=== PATIENT | male | born 1975 | race Caucasian/White ===

== ENCOUNTER → 2023-02-02 | Outpatient (CLI) | payer OTHER, SELFPAY ==
--- NOTE | 2023-02-02 13:52 | CT_ITS ---
INDICATION: CONTACT W HAZARDOUS SUBSTANCES EXAMINATION: CT CHEST WITHOUT CONTRAST - CT Chest W/O Contrast Injection TECHNIQUE: Helically acquired images were obtained of the chest. A radiation dose optimization technique was used for this scan. IV Contrast dosage and agent: None. COMPARISON: None. FINDINGS: LUNGS, PLEURA AND LARGE AIRWAYS: No masses, consolidation, or edema. No pleural effusion or thickening. No pneumothorax. THYROID: No thyroid lesions. HEART AND PERICARDIUM: Heart size is normal. No pericardial effusion. CORONARY ARTERIES: Multifocal artery calcification including the left main coronary artery VESSELS: Thoracic aorta is not dilated. MEDIASTINUM AND TAYO: No mediastinal or hilar adenopathy. Esophagus is unremarkable. No hiatal hernia. UPPER ABDOMEN: Small hiatal hernia noted. BONES: Dorsal spine demonstrates degenerative changes No suspicious lytic or blastic abnormality. CT/Chest without Contrast IMPRESSION: Findings consistent with coronary artery disease. Otherwise no significant cardiopulmonary pathology Electronically Signed: Mike Triplett MD at 21:35 EDT ,
== END | disposition home or self-care (01) ==
LOC: CT 13:50
DX: Z77.29 Contact with and (suspected) exposure to other hazardous substances (principal)
CPT/HCPCS: 71250

== ENCOUNTER → 2024-09-01 | Outpatient (CLI) | payer OTHER, SELFPAY ==
--- NOTE | 2024-09-01 10:38 | US_ITS ---
HISTORY: RUQ PAIN. TECHNIQUE: Cervantes scale and color doppler imaging was performed of the right upper quadrant. 86 images. COMPARISON: None. FINDINGS: LIVER: 17.4 cm in length. Increased echogenicity without focal lesion demonstrated. No intrahepatic ductal dilatation. MAIN PORTAL VEIN: Patent with flow in the appropriate direction. COMMON BILE DUCT: 4 mm in diameter. GALLBLADDER: No gallstones. 2 mm wall thickness. No pericholecystic fluid. Sonographic Zheng sign negative. PANCREAS: Not well visualized due to overlying bowel gas. RIGHT KIDNEY: 12 cm in length with a cortical thickness of 1.3 cm. No hydronephrosis or gross renal mass demonstrated. US/Abdomen Limited IMPRESSION: No sonographic evidence of cholelithiasis. Hepatic steatosis with mild hepatomegaly. Electronically Signed: Jordyn Dunne MD at 15:43 EST ,
== END | disposition home or self-care (01) ==
PROVIDERS: Referring Provider Nurse Practitioner Gerontology; Visit Provider Nurse Practitioner Gerontology
DX: R10.811 Right upper quadrant abdominal tenderness (principal)
CPT/HCPCS: 76705

== ENCOUNTER 2025-09-16 10:43 | Emergency (ER) | payer OTHER, SELFPAY ==
[2025-09-16 10:44] VITALS: BP 120/85; PULSE 75; RESP 18; TEMP 36.8; O2SAT 100; BMI 35.1
--- NOTE | 2025-09-16 11:00 | CT_ITS ---
PROCEDURE: ABDOMEN/PELVIS WITHOUT CONT 09/16/2025 REASON FOR EXAM: KIDNEY STONE TECHNIQUE: Procedure Code: CTABDPEL Modality: CT Procedure: ABDOMEN/PELVIS WITHOUT CONT Noncontrast technique limits evaluation of the abdominal and pelvic viscera. Coronal and Sagittal reconstruction series were provided. One or more dose reduction techniques were used (e.g., Automated exposure control, adjustment of the mA and/or kV according to patient size, use of iterative reconstruction technique). RADIATION DOSE SUMMARY: CTDlvol: 15.4 mGy DLP: 1015.7 mGycm COMPARISON: None FINDINGS: Lung bases: Clear Liver: Normal size. No obvious mass. Gallbladder: Normal Spleen: Normal size. Pancreas: Normal size. No surrounding inflammation. Adrenals: Normal. Kidneys: No urolithiasis. No hydronephrosis. There is fat stranding noted along the right ureter and right kidney pelvis. Bladder: Unremarkable. Reproductive Organs: Unremarkable. Bowel: No bowel obstruction. Appendix: The appendix is not identified. There is no inflammatory process identified in the right lower quadrant to suggest appendicitis. Lymph nodes: Unremarkable. Vasculature: The abdominal aorta and IVC contours are normal. Noncontrast technique limits evaluation. Peritoneum / Retroperitoneum: No free air or free fluid. Bones: Degenerative changes of the spine. Abdominal wall: Herniated small bowel loops through an umbilical hernia without evidence of strangulation or obstruction. CT/Abdomen/Pelvis without Cont IMPRESSION: There is fat stranding noted along the right ureter and right kidney pelvis. R ecommend correlation with right pyelitis and pyelonephritis. No obstructive nephroliths. Herniated small bowel loops through an umbilical hernia without evidence of str angulation or obstruction. Reading Location: [facility]
--- NOTE | 2025-09-16 11:00 | EX.ED.DYSGE1 ---
HPI History of Present Illness Chief Complaint: Flank Pain Informant: patient and spouse/S.O. Narrative Narrative: 49-year-old male presenting to the emergency room with sudden onset of right flank pain.. States about 30 minutes ago was driving to town and began to have some pain in his right flank intensified and radiated towards the right groin. He noted he had some slight burning with urination this morning but did not have urinated here in the department. He denies any vomiting or diarrhea. Normal bowel movement this morning no fevers. No history of ureterolithiasis or kidney issues. He said prior appendectomy. He denies any rashes. [facility] Medical History (Updated 09/16/25 @ 13:[address] Peyman Chambers DO) GERD (gastroesophageal reflux disease) Hypercholesterolemia Hypertension Home Medications ?Medication ?Instructions ?Recorded ?Last Taken ?Type amlodipine 5 mg tablet 5 mg PO QDAY 12/25/24 Unknown History benazepril 10 mg tablet 10 mg PO QDAY 12/25/24 Unknown History celecoxib 100 mg capsule 100 mg PO BID 12/25/24 Unknown History citalopram 30 mg capsule 30 mg PO QDAY 12/25/24 Unknown History ezetimibe 10 mg tablet 10 mg PO QDAY 12/25/24 Unknown History omeprazole 40 mg capsule,delayed 40 mg PO QDAY 12/25/24 Unknown History release prazosin 2 mg capsule 2 mg PO QHS 12/25/24 Unknown History rosuvastatin 20 mg tablet 20 mg PO QDAY 12/25/24 Unknown History tamsulosin 0.4 mg capsule 0.4 mg PO QDAY 12/25/24 Unknown History ondansetron 4 mg disintegrating 4 mg PO Q6H PRN PRN Nausea #15 tabs 09/16/25 Unknown Rx tablet oxycodone-acetaminophen 5 mg-325 1 tab PO Q6H PRN PRN Pain 3 days 09/16/25 Unknown Rx mg tablet #12 TABLETS Allergy/AdvReac Type Severity Reaction Status Date / Time Seasonal Allergies: Uncoded Allergy Other Verified 09/16/25 10:45 Surgical History (Updated 09/16/25 @ 11:[address] Peyman Chambers DO) History of lumbar surgery S/P tonsillectomy S/P appendectomy Social History Smoking Status: Never smoker alcohol intake: current alcohol intake frequency: a few times a week Alcohol type: beer ROS ROS ED Constitutional Constitutional ED: Denies chills, fever(s) or weight loss Eyes Eyes: Denies change in vision or diplopia ENT ENT ED: Denies ear pain, rhinorrhea or sore throat Cardiovascular Cardiovascular: Denies chest pain, orthopnea, palpitations or racing heartbeat Respiratory/Chest Respiratory/Chest: Denies cough, dyspnea or orthopnea Gastrointestinal Gastrointestinal: Reports abdominal pain; Denies diarrhea, nausea or vomiting Genitourinary Genitourinary ED: Reports dysuria; Denies hematuria or urinary frequency Musculoskeletal Musculoskeletal: Reports back pain; Denies arthralgias or myalgias Integumentary Denies abscess or rash Neurologic Neurologic: Denies headache(s) or weakness Psychiatric Psychiatric: Denies anxiety, depression, suicidal ideation or suicidal thoughts Endocrine Endocrinology: Denies polydipsia, polyphagia or polyuria Allergic/Immunologic Allergic/Immunologic ED: Denies mouth swelling, tongue swelling or urticaria EXAM Physical Exam Narrative Exam Narrative: Patient appears uncomfortable laying in the bed. Const Vital Signs: 09/16/25 10:44 09/16/25 12:34 09/16/25 14:04 Temperature 98.2 F 98.3 F Temperature Source Oral Pulse Rate 75 60 67 Respiratory Rate 18 16 18 Blood Pressure 120/85 H 118/68 112/88 H Blood Pressure Mean 96 84 96 Pulse Ox 100 95 100 Oxygen Delivery Method Room Air Room Air Positive well nourished and well developed General Appearance ED: well developed HEENT Reports normocephalic, head/scalp atraumatic and moist mucous membranes Eyes PERRL and EOMs intact bilaterally Neck no lymphadenopathy, supple and no JVD Resp normal respiratory effort and clear to auscultation bilaterally Cardio regular rate, regular rhythm and no murmurs GI normal to inspection, nondistended, normoactive bowel sounds and non-tender Palpation: soft Back/Spine no CVA tenderness and normal ROM Extremity normal to inspection General Extremety ED: Negative for edema General Extremity: Negative for edema Neuro oriented x3 and CN's II-XII intact bilaterally Sensorium / Orientation: alert Motor Exam: strength 5/5 throughout Psych mental status grossly normal Mood & Affect: Negative for depressed or tearful Skin no rashes or lesions noted and no wounds MDM MDM MDM Narrative Medical decision making narrative: Differential diagnosis includes kidney stone colitis UTI pyelonephritis. Basic blood work obtained shows white count of 4.9 normal creatinine glucose 116 urinalysis no overt infection. CT abdomen pelvis was obtained which demonstrates some fat stranding along the right ureter and right kidney. I do wonder if this is due to the passed stone given the sudden onset of his symptoms and now he is significantly improved. I will write for pain medication-drink fluids follow-up urology as needed return if worsening or concerns History & Record Review Discussion w/independent historian: Patient and Significant other Lab Data Attestation: I reviewed the patient's lab results. Labs: Laboratory Results - last 24 hr 09/16/25 09/16/25 10:54 11:00 WBC 4.9 RBC 4.36 L Hgb 14.1 Hct 37.9 L MCV 86.9 MCH 32.3 H MCHC 37.2 H RDW Std Deviation 39.2 RDW Coeff of Josy 12.2 Plt Count 208 MPV 9.2 Immature Gran % (Auto) 0.400 Neut % (Auto) 49.1 Lymph % (Auto) 39.6 [place] % (Auto) 8.5 Eos % (Auto) 2.0 Baso % (Auto) 0.4 Absolute Neuts (auto) 2.4 Absolute Lymphs (auto) 1.95 Nucleated RBC % 0 Sodium 138 Potassium 4.4 Chloride 103 Carbon Dioxide 25.6 Anion Gap 10 BUN 21 H Creatinine 1.20 Estim Creat Clear Calc 94.69 Est GFR (MDRD) Non-Af 74 BUN/Creatinine Ratio 17.4 Glucose 116 H Calcium 9.3 Urine Color Yellow Urine Clarity Clear Urine pH 6.0 Ur Specific [place] 1.010 Urine Protein Negative Urine Glucose (UA) Normal Urine Ketones Negative Urine Occult Blood Negative Urine Nitrite Negative Urine Bilirubin Negative Urine Urobilinogen Normal Ur Leukocyte Esterase Negative Urine RBC 0 SEEN Urine WBC 0 SEEN Ur Squamous Epith Cells 0 SEEN Urine Bacteria 0 SEEN Urine Mucus 0 SEEN Radiography Diagnostic Testing: Clinical Impression(s) from Imaging Studies Abdomen/Pelvis CT 09/16/25 11:00 IMPRESSION: There is fat stranding noted along the right ureter and right kidney pelvis. Recommend correlation with right pyelitis and pyelonephritis. No obstructive nephroliths. Herniated small bowel loops through an umbilical hernia without evidence of strangulation or obstruction. Reading Location: [facility] Discharge Plan Triage Chief Complaint: Flank Pain ED Provider: Peyman Chambers Dx/Rx/DC Orders Clinical Impression: Kidney stone on right side Instructions: ED Kidney Stone with Pain Prescriptions: New oxycodone-acetaminophen 5-325 mg tablet 1 tab PO Q6H PRN PRN (Reason: Pain) 3 Days Qty: 12 0RF ondansetron 4 mg tablet,disintegrating 4 mg PO Q6H PRN PRN (Reason: Nausea) Qty: 15 0RF No Action rosuvastatin 20 mg tablet 20 mg PO QDAY celecoxib 100 mg capsule 100 mg PO BID omeprazole 40 mg capsule,delayed release(DR/EC) 40 mg PO QDAY tamsulosin 0.4 mg capsule 0.4 mg PO QDAY amlodipine 5 mg tablet 5 mg PO QDAY ezetimibe 10 mg tablet 10 mg PO QDAY benazepril 10 mg tablet 10 mg PO QDAY citalopram 30 mg capsule 30 mg PO QDAY prazosin 2 mg capsule 2 mg PO QHS [facility] Referrals: Parish Miranda MD [Med Staff - Active Staff, Urology] Referral Note: for urology if needed [facility] [Primary Care Provider, None] Print Language: Dominican Disposition Disposition: Home, Self Care Discharge Date/Time: 09/16/25 14:09
[2025-09-16 11:11] LABS: Hematocrit 37.9 % (40-54); Hemoglobin 14.1 g/dL (13.0-16.5); Immature Granulocytes Count 0.020 X10^3/uL (0.0-0.0); Mean Corp Hgb Conc 37.2 g/dL (32-36); Mean Corpuscular Volume 86.9 fL (80-94); Mean Platelet Vol. 9.2 fl (6.2-12.0); NRBC Flagged by Analyzer 0 % (0-5); Platelet Count 208 K/mm3 (150-450); RBC Distribution Width CV 12.2 % (11.6-14.6); RBC Distribution Width SD 39.2 fl (35.1-43.9); Red Blood Count 4.36 M/mm3 (4.6-6.2); White Blood Count 4.9 K/mm3 (4.4-11.0)
[2025-09-16] MEDS: Ketorolac 30 MG/ML Syringe IV (11:11)
[2025-09-16 11:15] LABS: Mucous, Urine 0 SEEN /hpf (<or=2+); Red Blood Cells-Urine 0 SEEN /hpf (0-5); Squamous Epithelial Cells - UA 0 SEEN /hpf (0-5)
[2025-09-16 11:18] LABS: Color, Urine Yellow (Yellow); Glucose, Dipstick Normal (Normal); Ketone-Dipstick Negative (Negative); Leukocyte Esterase-Dipstick Negative /ul (Negative); Nitrite-Dipstick Negative (Negative); Occult Blood-Urine Negative /ul (Negative); Protein-Dipstick Negative (Negative); Specific Gravity, Urine 1.010 (1.002-1.030); Urine Bilirubin Dipstick Negative (Negative)
[2025-09-16 11:31] LABS: Anion Gap 10 (7-18); BUN 21 mg/dL (4-19); BUN/Creat Ratio 17.4 RATIO (10-20); Calcium,Total 9.3 mg/dL (7.6-11.0); Carbon Dioxide 25.6 mmol/L (20.0-29.0); Chloride 103 mmol/L (96-106); Estimated Creatinine Clearance 94.69 ml/min (50-250); Glucose 116 mg/dL (70-99); Potassium 4.4 mmol/L (3.5-5.1)
--- OUTSIDE RECORDS SUMMARY | 2025-09-16 11:55 | XMS RPT_ITS | CCD ---
Author Organization [facility] Inform ion Partnership [facility] Care Team Providers Care Floor Person Name Role Phone Unavailable Primary Care Provider UnavailNakia Landa CNP Unavailable [phone] Luc Olivier DO Primary Care Provider [phone] Carter RATE SETTER.Rowan FARRELL Unavailable [facility] RATE SETTER.Beti FARRELL Unavailable [facility], [place] Referring Unavailable Foreign Reyna Attending [facility] [place] Primary Care Unavailable [facility] [place] Primary Care Unavailable Ines Steiner Attending Unavailable Ines Steiner Referring Unavailable Marvin RATE SETTER.Anika FARRELL Unavailable [facility] Attending Unavailable LUC OLIVIER Referring Unavailable LUC OLIVIER Primary Care Unavailable [facility] Attending Unavailable LUC OLIVIER Primary Care Unavailable LUC OLIVIER Referring Unavailable LUC OLIVIER Primary Care Unavailable LUC OLIVIER Referring Unavailable LUC OLIVIER Referring Unavailable LUC OLIVIER Primary Care Unavailable JAVIER PRINCE Attending Unavailable JAVIER PRINCE Referring Unavailable FAMILIA LUC Chery Primary Care Unavailable SELF Referring Unavailable LUC OLIVIER L Primary Care Unavailable DARIN HOGAN Attending Unavailable LUC OLIVIER Primary Care Unavailable DARIN HOGAN Referring Unavailable FAMILIA LUC Chery Primary Care Unavailable NHI BECERRIL Attending Unavailable LUC OLIVIER Primary Care Unavailable LUC OLIVIER Attending Unavailable LUC OLIVIER L Primary Care Unavailable JAVIER PRINCE Referring Unavailable FAMILIA, LUC L Primary Care Unavailable LUC OLIVIER L Referring Unavailable FAMILIA LUC Chery Primary Care Unavailable JAVIER PRINCE Attending Unavailable SELF Referring Unavailable LOC FORRESTER Attending Unavailable LUC OLIVIER Referring Unavailable LUC OLIVIER Primary Care Unavailable LOC [facility] Attending Unavailable LUC OLIVIER Referring Unavailable LUC OLIVIER Primary Care Unavailable Allergies Allergy Classification Reported Allergen(s) Allergy Type Date of Onset Reaction(s) Facility (1 source) Seasonal Allergies: Uncoded; Translations: [Seasonal Allergies: Uncoded] Propensity to adverse reactions (disorder) 5 [facility] Repository (6 sources) rosuvastatin; Translations: [ROSUVASTATIN] Drug Allergy 5 Other: See Comments [facility] Medications Current Medications Medication Drug Class(es) Dates Sig (Normalized) Sig (Original) [id number] 200 actuat albuterol 0.09 mg/actuat metered dose inhaler (11 sources) beta2-Adrenergic Agonist Start: 10-18-2024 take 2 puff(s) by inhalation every six hours as needed for wheezing albuterol HFA (PROVENTIL HFA, VENTOLIN HFA) 90 mcg/actuation inhaler Indications: Acute cough , Wheezing Inhale 2 Puffs as instructed every 6 hours as needed for wheezing/shortne ss of breath. 1 Each 10/18/2024 Active amLODIPine 5 mg / benazepril hydrochloride 20 mg oral capsule (12 sources) Dihydropyridine Calcium Channel Marco A, Angiotensin Converting Enzyme Inhibitor take 1 capsule by mouth once daily amLODIPine-benaz epril (LOTREL) 5-20 mg per capsule Take 1 capsule by mouth once daily. Active aspirin 81 mg chewable tablet (12 sources) Platelet Aggregation Inhibitor, Nonsteroidal Anti-inflammatory Drug Start: 03-01-2024 take 1 tablet by mouth once daily aspirin 81 mg chewable tablet Take 1 tablet by mouth once daily. 03/01/2024 Active celecoxib 100 mg oral capsule (12 sources) Nonsteroidal Anti-inflammatory Drug take 1 capsule by mouth once daily celecoxib (CELEBREX) 100 mg capsule Take 100 mg by mouth once daily. Active cetirizine hydrochloride 10 mg oral tablet (12 sources) Histamine-1 Receptor Antagonist take 1 tablet by mouth once daily cetirizine (ZYRTEC) 10 mg tablet Take 10 mg by mouth once daily. Active citalopram 20 mg oral tablet (12 sources) Serotonin Reuptake Inhibitor citalopram (CELEXA) 20 mg tablet Take by mouth once daily. Active diclofenac sodium 0.01 mg/mg topical gel (2 sources) Nonsteroidal Anti-inflammatory Drug diclofenac (VOLTAREN ARTHRITIS PAIN) 1 % topical gel Apply to affected area four times daily. Active ezetimibe 10 mg oral tablet (12 sources) Dietary Cholesterol Absorption Inhibitor take 1 tablet by mouth once daily ezetimibe (ZETIA) 10 mg tablet Take 10 mg by mouth once daily. Active fluticasone (12 sources) Corticosteroid fluticasone propionate (FLONASE NASAL) Use in the nose. Active fluticasone prop ionate (FLONASE NASAL) Use in the nose. 0 Active omeprazole 20 mg delayed release oral capsule (12 sources) Proton Pump Inhibitor take 1 capsule by mouth once daily omeprazole (PRILOSEC) 20 mg capsule Take 20 mg by mouth once daily. Active pravastatin sodium 80 mg oral tablet (7 sources) HMG-CoA Reductase Inhibitor take 1 tablet by mouth once daily pravastatin (PRAVACHOL) 80 mg tablet Take 80 mg by mouth once daily. Active prazosin 1 mg oral capsule (12 sources) alpha-Adrenergic Marco A take 1 capsule by mouth twice daily prazosin (MINIPRESS) 1 mg cap Take 1 mg by mouth twice daily. Active sulfamethoxazole 800 mg / trimethoprim 160 mg oral tablet (2 sources) Dihydrofolate Reductase Inhibitor Antibacterial, Sulfonamide Antimicrobial Start: End: take 1 tablet by mouth twice daily sulfamethoxazole-tr imethoprim (BACTRIM DS) 800-160 mg per tablet Indications: Left epididymitis Take 1 tablet by mouth two times a day for 10 days. 20 tablet 11/14/2024 11/24/2024 Active tamsulosin hydrochloride 0.4 mg oral capsule (12 sources) alpha-Adrenergic Marco A take 0.4 mg by mouth once daily tamsulosin (FLOMAX) 0.4 mg Take 0.4 mg by mouth once daily. Active Completed/Discontinued Medications Medication Drug Class(es) Dates Sig (Normalized) Sig (Original) azithromycin 250 mg oral tablet (1 source) Macrolide Antimicrobial Start: 10-23-2024 End: 10-28-2024 azithromycin (ZITHROMAX Z-ZEYAD) 250 mg tablet Indications: Productive cough Take 2 tablets day one, then, 1 tablet daily until gone. 6 tablet 1 10/23/2024 10/28/2024 benzonatate 100 mg oral capsule (4 sources) Non-narcotic Antitussive Start: 10-18-2024 End: 10-25-2024 take 1 capsule by mouth three times daily as needed for cough benzonatate (TESSALON PERLE) 100 mg capsule Indications: Acute cough , Wheezing Take 1 capsule by mouth three times a day as needed for cough for up to 7 days. 21 capsule 10/18/2024 10/25/2024 betamethasone 3 mg/ml / betamethasone acetate 3 mg/ml injectable suspension (2 sources) Corticosteroid Start: 05-16-2025 End: 05-16-2025 betamethasone acetate-betamethas one sodium phosphate 6 mg injection (CELESTONE) Start: 05-16-2025 End: 05-16-2025 6 mg, OTHER, ONCE, 1 dose, O n 05/16/25 at 1830, Protect From Light. methylPREDNISolone (4 sources) Corticosteroid Start: 10-18-2024 End: 10-24-2024 methylPREDNISolone (MEDROL, ZEYAD,) 4 mg Dose-Pack Indications: Acute cough , Wheezing Take as instructed per package. 21 tablet 10/18/2024 10/24/2024 Start: 10-18-2024 End: 10-24-2024 methylPREDNISolone (MEDROL, ZEYAD,) 4 mg Dose-Pack Indications: Acute cough , Wheezing Take as instructed per package. 21 tablet 10/18/2024 10/24/2024 Active rosuvastatin calcium 20 mg oral tablet (8 sources) HMG-CoA Reductase Inhibitor Start: 03-01-2024 End: 05-16-2025 take 1 tablet by mouth once daily at bedtime rosuvastatin (CRESTOR) 20 mg tablet Indications: Hyperlipidemia, mixed Take 1 tablet by mouth daily at bedtime. 03/01/2024 05/16/2025 Discontinued Problems Active Problems Problem Classification Problem Date Documented Date Episodic/Chronic Abdominal pain (1 source) Right upper quadrant abdominal tenderness; Translations: [Right upper quadrant abdominal tenderness] Onset: 10-04-2024 Episodic Anxiety disorders (13 sources) Posttraumatic stress disorder; Translations: [Post-traumatic stress disorder, unspecified] Onset: 03-01-2024 03-01-2024 Chronic Disorders of lipid metabolism (17 sources) Mixed hyperlipidemia; Translations: [Mixed hyperlipidemia] Onset: 03-01-2024 03-01-2024 Chronic Essential hypertension (16 sources) Essential hypertension; Translations: [Essential (primary) hypertension] Onset: 03-01-2024 03-01-2024 Chronic Miscellaneous mental health disorders (13 sources) Nightmares associated with chronic post-traumatic stress disorder; Translations: [Nightmare disorder] Onset: 03-01-2024 03-01-2024 Chronic Mood disorders (13 sources) Depressive disorder; Translations: [Depressive disorder] Onset: 03-01-2024 03-01-2024 Chronic Osteoarthritis (3 sources) Primary gonarthrosis, bilateral; Translations: [Bilateral primary osteoarthritis of knee] Onset: 06-01-2025 06-01-2025 Chronic Other and unspecified benign neoplasm (1 source) Dysplastic nevus of skin; Translations: [Melanocytic nevi, unspecified] 03-01-2024 Episodic Other connective tissue disease (6 sources) Bursitis of left shoulder; Translations: [Bursitis of left shoulder] Onset: 05-16-2025 05-16-2025 Episodic Other connective tissue disease (1 source) Bursitis of left shoulder; Translations: [Acute bursitis of left shoulder] Onset: 05-16-2025 Episodic Other lower respiratory disease (2 sources) Cough; Translations: [Acute cough] 10-18-2024 Episodic Other lower respiratory disease (1 source) Wheezing; Translations: [Wheezing] 10-18-2024 Episodic Other lower respiratory disease (1 source) Productive cough ; Translations: [Productive cough] 10-23-2024 Episodic Other nervous system disorders (1 source) Other chronic pain; Translations: [Chronic pain of both knees] Onset: 05-16-2025 Chronic Other nervous system disorders (9 sources) Paresthesia of left upper limb; Translations: [Paresthesia of skin] Onset: 05-16-2025 05-16-2025 Episodic Other nervous system disorders (1 source) Paresthesia of skin; Translations: [Arm paresthesia, left] Onset: 05-16-2025 Episodic Other non-traumatic joint disorders (11 sources) Pain in right knee; Translations: [Pain in joint, lower leg] Onset: 05-16-2025 05-16-2025 Episodic Other non-traumatic joint disorders (7 sources) Pain in left shoulder; Translations: [Pain in joint, shoulder region] Onset: 05-16-2025 05-16-2025 Episodic Other non-traumatic joint disorders (2 sources) Pain in left knee; Translations: [Pain in both knees, unspecified chronicity] Onset: 05-16-2025 Episodic Other screening for suspected conditions (not mental disorders or infectious disease) (1 source) Elevated prostate specific antigen [PSA]; Translations: [Elevated PSA] Onset: 06-18-2025 Episodic Residual codes; unclassified (14 sources) Obstructive sleep apnea syndrome; Translations: [Obstructive sleep apnea (adult) (pediatric)] Onset: 03-01-2024 03-01-2024 Chronic Residual codes; unclassified (1 source) Obstructive sleep apnea (adult) (pediatric); Translations: [EVER on CPAP] Onset: 03-01-2024 Chronic Spondylosis; intervertebral disc disorders; other back problems (10 sources) Cervical spondylosis; Translations: [Other spondylosis with radiculopathy, cervical region] Onset: 05-16-2025 05-16-2025 Chronic Unclassified (1 source) Chronic pain of both knees 05-16-2025 Unclassified (1 source) Pain in both knees, unspecified chronicity 05-22-2025 Unclassified (1 source) Personal history of service; Translations: [Personal history of service] 06-01-2025 Unclassified (1 source) Personal history of service; Translations: [Personal history of service] Onset: 06-01-2025 Unclassified (1 source) Acute cough; Translations: [Acute cough] Onset: 10-18-2024 Past or Other Problems Problem Classification Problem Date Documented Da te Episodic/Chronic Inflammatory conditions of male genital organs (2 sources) Epididymitis; Translations: [Epididymitis] Onset: 11-14-2024 11-14-2024 Episodic Other lower respiratory disease (1 source) Wheezing; Translations: [Wheezing] Onset: 10-18-2024 Episodic Other upper respiratory infections (3 sources) Acute upper respiratory infection; Translations: [Acute upper respiratory infection, unspecified] Onset: 10-18-2024 10-18-2024 Episodic Results Test Name Value Interpretation Reference Range Facility CNTHERAPYon 07-02-2025 CNTHERAPY OT/PT/Speech Visit ( PTWS) IVETSALAZAR ABRAMS ([id number]) 1975 M C[facility] Date Time Provider Department 07/02/25 8:15 AM LOC [facility] PTWS Date Time Provider Department Center 07/02/2025 8:15 AM [id number], SEAN PTWS Margie Dockery Reason for Visit: Physical Therapy [503] Primary Visit Diagnosis:Osteoarthritis of spine with radiculopathy, cervical region [M47.22] Other Visit Diagnosis:Arm paresthesia, left [R20.2] Allergies As of Date: 07/02/2025 Noted Allergy Reaction ROSUVASTATIN 05/16/2025 14 - Other: See Comments Date Reviewed: 06/22/2025 Reviewed by: Margaret Trujillo MA - Fully Assessed Prescriptions as of 07/02/2025 - diclofenac (VOLTAREN ARTHRITIS PAIN) 1 % topical gel Apply to affected area four times daily. - pravastatin (PRAVACHOL) 80 mg tablet Take 80 mg by mouth once daily. - albuterol HFA (PROVENTIL HFA, VENTOLIN HFA) 90 mcg/actuation inhaler Inhale 2 Puffs as instructed every 6 hours as needed for wheezing/shortness of breath. - aspirin 81 mg chewable tablet Take 1 tablet by mouth once daily. - ezetimibe (ZETIA) 10 mg tablet Take 10 mg by mouth once daily. - celecoxib (CELEBREX) 100 mg capsule Take 100 mg by mouth once daily. - citalopram (CELEXA) 20 mg tablet Take by mouth once daily. - omeprazole (PRILOSEC) 20 mg capsule Take 20 mg by mouth once daily. - amLODIPine-benazepril (LOTREL) 5-20 mg per capsule Take 1 capsule by mouth once daily. - tamsulosin (FLOMAX) 0.4 mg Take 0.4 mg by mouth once daily. - prazosin (MINIPRESS) 1 mg cap Take 1 mg by mouth twice daily. - cetirizine (ZYRTEC) 10 mg tablet Take 10 mg by mouth once daily. - fluticasone propionate (FLONASE NASAL) Use in the nose. Normal [facility] CNTHERAPYon 06-25-2025 CNTHERAPY OT/PT/Speech Visit ( PTWS) SALAZAR MELLO ([id number]) 1975 M [facility] Date Time Provider Department 06/25/25 8:15 AM LOC [facility] PTNORMA Date Time Provider Department Center 06/25/2025 8:15 AM [id number], SEAN PTWS Margie Dockery Reason for Visit: Physical Therapy [503] Primary Visit Diagnosis:Osteoarthritis of spine with radiculopathy, cervical region [M47.22] Other Visit Diagnosis:Arm paresthesia, left [R20.2] Allergies As of Date: 06/25/2025 Noted Allergy Reaction ROSUVASTATIN 05/16/2025 14 - Other: See Comments Date Reviewed: 06/22/2025 Reviewed by: Margaret Trujillo, MA - Fully Assessed Prescriptions as of 06/25/2025 - diclofenac (VOLTAREN ARTHRITIS PAIN) 1 % topical gel Apply to affected area four times daily. - pravastatin (PRAVACHOL) 80 mg tablet Take 80 mg by mouth once daily. - albuterol HFA (PROVENTIL HFA, VENTOLIN HFA) 90 mcg/actuation inhaler Inhale 2 Puffs as instructed every 6 hours as needed for wheezing/shortness of breath. - aspirin 81 mg chewable tablet Take 1 tablet by mouth once daily. - ezetimibe (ZETIA) 10 mg tablet Take 10 mg by mouth once daily. - celecoxib (CELEBREX) 100 mg capsule Take 100 mg by mouth once daily. - citalopram (CELEXA) 20 mg tablet Take by mouth once daily. - omeprazole (PRILOSEC) 20 mg capsule Take 20 mg by mouth once daily. - amLODIPine-benazepril (LOTREL) 5-20 mg per capsule Take 1 capsule by mouth once daily. - tamsulosin (FLOMAX) 0.4 mg Take 0.4 mg by mouth once daily. - prazosin (MINIPRESS) 1 mg cap Take 1 mg by mouth twice daily. - cetirizine (ZYRTEC) 10 mg tablet Take 10 mg by mouth once daily. - fluticasone propionate (FLONASE NASAL) Use in the nose. Normal [facility] CNOVon 06-22-2025 CNOV Office Visit (FRWS ) SALAZAR MELLO ([id number]) 1975 [facility] Date Time Provider Department 06/22/25 3:30 PM JAVIER AHUMADA V [facility] During your visit today, we recorded the following information about you: Margaret Trujillo MA 06/22/2025 3:39 PM Signed AMB ROOMING INTAKE FLOWSHEET DATA Pain Pain Level: 6 Pain Location: (bilateral knees) Description: Dull, Shooting Duration Amount of Time: (ongoing) Frequency: Intermittent Intervention/Comfort measure: Other: See comment (none) Synvisc One injection into bilateral knees Left knee LOT # [id number] EXP 11/18/2027 Right knee LOT # [id number] EXP 11/18/2027 DELANO Hill Dennis, V, DO 06/22/2025 3:39 PM Signed Subjective Richard is a 49-year-old male presenting for Synvisc-One injections in both knees. Richard has a history of receiving Synvisc-One injections every 4 months for bilateral knee pain. He reports that the injections have been effective in managing his symptoms. He denies any significant soreness following previous injections. Objective There were no vitals taken for this visit. MSK/Ext: Bilateral knee exam shows no erythema, warmth, or tenderness to palpation; mild crepitus with range of motion of both knees; landmarks for injection clearly identified; Synvisc-One injected into each knee via anterolateral approach, tolerated well. Assessment AND Plan 1. Bilateral primary osteoarthritis of knee (M17.0) Bilateral knee osteoarthritis with mild crepitus on exam; no erythema, warmth, or tenderness. - Administered Synvisc-One injection to each knee via anterolateral approach; patient tolerated procedure well. - Advised patient to take it easy for the remainder of the day and to use ice as needed for post-injection soreness. - Discussed that injections can be repeated every 4 months if insurance authorization is obtained. Large Joint Arthro/Inj: bilateral knee joints 06/22/2025 3:39 PM The procedure site was prepped in the usual sterile fashion. Site: bilateral knee joints Medications (Right): 48 mg hylan G-F 20 48 mg/6 mL Medications (Left): 48 mg hylan G-F 20 48 mg/6 mL Anesthetics (Right): 2 mL lidocaine (PF) 10 mg/mL (1 %) Anesthetics (Left): 2 mL lidocaine (PF) 10 mg/mL (1 %) Outcome: Tolerated well, no immediate complications Post-injection instructions were reviewed with the patient and the patient voiced understanding of these instructions. Informed Consent Consent Obtained: Verbal [place] Protocol SIGN IN TIME OUT Recording using [employer] software for draft documentation of the visit was discussed with the patient/authorized front desk representative; all questions welcomed and answered. Patient/authorized front desk representative agreed to proceed Referring Provider: JAVIER AHUMADA V [[id number]] Allergies As of Date: 06/22/2025 Noted Allergy Reaction ROSUVASTATIN 05/16/2025 14 - Other: See Comments Date Reviewed: 06/22/2025 Reviewed by: Margaret Trujillo MA - Fully Assessed Reason for Visit: Synvisc injection bilateral knees [Other] Visit Diagnosis:Bilateral primary osteoarthritis of knee [M17.0] Order(s):Large Joint Arthro/Inj: bilateral knee joints [IEB882] Order #: [id number] [] hylan G-F 20 48 mg/6 mL 48 mg injection (SYNVISC-ONE)Disp: Rfl: [] hylan G-F 20 48 mg/6 mL 48 mg injection (SYNVISC-ONE)Disp: Rfl: [] lidocaine (PF) 10 mg/mL (1 %) 2 mL injection (XYLOCAINE)Disp: Rfl: [] lidocaine (PF) 10 mg/mL (1 %) 2 mL injection (XYLOCAINE)Disp: Rfl: Prescriptions as of 06/22/2025 - diclofenac (VOLTAREN ARTHRITIS PAIN) 1 % topical gel Apply to affected area four times daily. - pravastatin (PRAVACHOL) 80 mg tablet Take 80 mg by mouth once daily. - albuterol HFA (PROVENTIL HFA, VENTOLIN HFA) 90 mcg/actuation inhaler Inhale 2 Puffs as instructed every 6 hours as needed for wheezing/shortness of breath. - aspirin 81 mg chewable tablet Take 1 tablet by mouth once daily. - ezetimibe (ZETIA) 10 mg tablet Take 10 mg by mouth once daily. - celecoxib (CELEBREX) 100 mg capsule Take 100 mg by mouth once daily. - citalopram (CELEXA) 20 mg tablet Take by mouth once daily. - omeprazole (PRILOSEC) 20 mg capsule Take 20 mg by mouth once daily. - amLODIPine-benazepril (LOTREL) 5-20 mg per capsule Take 1 capsule by mouth once daily. - tamsulosin (FLOMAX) 0.4 mg Take 0.4 mg by mouth once daily. - prazosin (MINIPRESS) 1 mg cap Take 1 mg by mouth twice daily. - cetirizine (ZYRTEC) 10 mg tablet Take 10 mg by mouth once daily. - fluticasone propionate (FLONASE NASAL) Use in the nose. Problem List As Of Date 06/22/2025 Noted Resolved Mixed hyperlipidemia [E78.2] 03/01/2024 EVER on CPAP [G47.33] 03/01/2024 Essential hypertension [I10] 03/01/2024 Nightmares associated with chronic post-traumat*03/01/2024 Depressive disorder [F32.A] 03/01/2024 PTSD (post-traumatic stre (more content not included)... Normal [facility] CNTHERAPYon 06-18-2025 CNTHERAPY OT/PT/Speech Visit ( PTWS) SALAZAR MELLO ([id number]) 1975 M T Date Time Provider Department 06/18/25 8:15 AM LOC [facility] PTNORMA Date Time Provider Department Center 06/18/2025 8:15 AM [id number] FORRESTER Margie Dockery Reason for Visit: Physical Therapy [503] Primary Visit Diagnosis:Osteoarthritis of spine with radiculopathy, cervical region [M47.22] Other Visit Diagnosis:Arm paresthesia, left [R20.2] Allergies As of Date: 06/18/2025 Noted Allergy Reaction ROSUVASTATIN 05/16/2025 14 - Other: See Comments Date Reviewed: 06/01/2025 Reviewed by: Margaret Trujillo MA - Fully Assessed Prescriptions as of 06/18/2025 - diclofenac (VOLTAREN ARTHRITIS PAIN) 1 % topical gel Apply to affected area four times daily. - pravastatin (PRAVACHOL) 80 mg tablet Take 80 mg by mouth once daily. - albuterol HFA (PROVENTIL HFA, VENTOLIN HFA) 90 mcg/actuation inhaler Inhale 2 Puffs as instructed every 6 hours as needed for wheezing/shortness of breath. - aspirin 81 mg chewable tablet Take 1 tablet by mouth once daily. - ezetimibe (ZETIA) 10 mg tablet Take 10 mg by mouth once daily. - celecoxib (CELEBREX) 100 mg capsule Take 100 mg by mouth once daily. - citalopram (CELEXA) 20 mg tablet Take by mouth once daily. - omeprazole (PRILOSEC) 20 mg capsule Take 20 mg by mouth once daily. - amLODIPine-benazepril (LOTREL) 5-20 mg per capsule Take 1 capsule by mouth once daily. - tamsulosin (FLOMAX) 0.4 mg Take 0.4 mg by mouth once daily. - prazosin (MINIPRESS) 1 mg cap Take 1 mg by mouth twice daily. - cetirizine (ZYRTEC) 10 mg tablet Take 10 mg by mouth once daily. - fluticasone propionate (FLONASE NASAL) Use in the nose. Normal [facility] PSA/PROSTATE SPECIFIC ANTIGE N SCREENINGon 06-18-2025 Prostate specific Ag [Mass/Vol] 2.63 ng/mL High <2.60 [facility] Comment on above: Order Comment: Speci men Type: BLOOD SPECIMEN Ordering Facility: [facility] Address: [address] [place] [address] Result Comment: Tota l PSA test methodology used is the Electrochemiluminescence Immunoassay by [employer]. Total PSA values by differing methodologies cannot be interchanged. For an individual patient, the significance of a PSA level should be interpreted in a broad clinical context, including age, race, family history, digital rectal exam, prostate size, results of prior testing (prostate biopsy, free PSA, PCA3), and use of 5-alpha reductase inhibitors. Considering the high incidence of asymptomatic cancer in the general population that may not pose an ultimate risk to a patient, the decision to recommend urological evaluation or prostate biopsy should be individualized after consideration of all these factors. REFERENCE: Phill Cedeno M.D., M.P.H., Kenny Maradiaga M.D., Ph.D., Darin Srinivasan M.D., Irais Scruggs, M.P.H., Amanda Mcfarlane, ScBir. Effect of Verification Bias on Screening for Prostate Cancer by Measurement of Prostatic Specific Antigen. N Engl J Med 2003,349:335-42. Performed By: #### P SAS1 #### [facility] CLIA [id number] [address] [place] [address] [place] Urinalysis complete panel (U )on 06-18-2025 Bacteria LM.HPF (Urine sed) [#/Area] Negative Normal Negative [facility] Comment on above: Order Comment: Speci men Type: URINE SPECIMEN Ordering Facility: [facility] Address: [address] [place] [address] Performed By: #### 2 [id number] #### [facility] CLIA [id number] [address] [id number] [place] Bilirubin Ql (U) Negative Normal Negative [facility] Comment on above: Order Comment: Speci men Type: URINE SPECIMEN Ordering Facility: [facility] Address: [address] [place] [address] Performed By: #### 2 [id number] #### [facility] CLIA [id number] [address] [place] [address] [place] Clarity (Unsp spec) Clear Normal Clear [facility] Comment on above: Order Comment: Speci men Type: URINE SPECIMEN Ordering Facility: [facility] Address: [address] [place] [address] Performed By: #### 2 4356-8 #### [facility] CLIA [id number] [address] [place] [address] [place] Color (U) Yellow Normal Yellow [facility] Comment on above: Order Comment: Speci men Type: URINE SPECIMEN Ordering Facility: [facility] Address: [address] [place] [address] Performed By: #### 2 4356-8 #### [facility] CLIA [id number] [address] [place] [address] [place] Epithelial cells LM.HPF (Urine sed) [#/Area] None Seen Normal [facility] Comment on above: Order Comment: Speci men Type: URINE SPECIMEN Ordering Facility: [facility] Address: [address] [place] [address] Performed By: #### 2 4356-8 #### [facility] CLIA [id number] [address] [place] [address] [place] Glucose Test strip (U) [Mass/Vol] Negative Normal Negative [facility] Comment on above: Order Comment: Speci men Type: URINE SPECIMEN Ordering Facility: [facility] Address: [address] [place] [address] Performed By: #### 2 4356-8 #### [facility] CLIA [id number] [address] [place], [place] [id number] [place] Hemoglobin Ql (U) Negative Normal Negative [facility] Comment on above: Order Comment: Speci men Type: URINE SPECIMEN Ordering Facility: [facility] Address: [address] [place] [address] Performed By: #### 2 4356-8 #### [facility] CLIA [id number] [address] [place] [address] [place] Hyaline casts (Urine sed) [#/Area] 1-3 /LPF Abnormal 0 /LPF [facility] Comment on above: Order Comment: Speci men Type: URINE SPECIMEN Ordering Facility: [facility] Address: [address] [place] [address] Performed By: #### 2 4356-8 #### [facility] CLIA [id number] [address] [place] [address] [place] Ketones Ql (U) Negative Normal Negative [facility] Comment on above: Order Comment: Speci men Type: URINE SPECIMEN Ordering Facility: [facility] Address: [address] [place] [address] Performed By: #### 2 4356-8 #### [facility] CLIA [id number] [address] [place] [address] [place] Leukocyte esterase Test strip Ql (U) Negative Normal Negative [facility] Comment on above: Order Comment: Speci men Type: URINE SPECIMEN Ordering Facility: [facility] Address: [address] [place] [address] Performed By: #### 2 4356-8 #### [facility] CLIA [id number] [address] [place] [address] [place] Nitrite Ql (U) Negative Normal Negative [facility] Comment on above: Order Comment: Speci men Type: URINE SPECIMEN Ordering Facility: [facility] Address: [address] [place] [address] Performed By: #### 2 4356-8 #### [facility] CLIA [id number] [address] [place] [address] [place] pH (U) 6.0 [pH] Normal 5.0-8.0 [facility] Comment on above: Order Comment: Speci men Type: URINE SPECIMEN Ordering Facility: [facility] Address: [address] [place] [address] Performed By: #### 2 4356-8 #### [facility] CLIA [id number] [address] [place] [address] [place] Protein (U) [Mass/Vol] Negative Normal Negative [facility] Comment on above: Order Comment: Speci men Type: URINE SPECIMEN Ordering Facility: [facility] Address: [address] [place] [address] Performed By: #### 2 4356-8 #### [facility] CLIA [id number] [address] [place] [address] [place] RBC LM.HPF (Urine sed) [#/Area] 0-2 /HPF Normal 0-2 /HPF [facility] Comment on above: Order Comment: Speci men Type: URINE SPECIMEN Ordering Facility: [facility] Address: [address] [place] [address] Performed By: #### 2 4356-8 #### [facility] CLIA [id number] [address] [place] [address] [place] Specific gravity (U) [Rel density] 1.007 Normal 1.005-1.030 [facility] Comment on above: Order Comment: Speci men Type: URINE SPECIMEN Ordering Facility: [facility] Address: [address] [place] [address] Performed By: #### 2 4356-8 #### [facility] CLIA [id number] [address] [place] [address] [place] Urobilinogen Ql (U) 0.2 EU/dL Normal 0.2-1.0 EU/dL [facility] Comment on above: Order Comment: Speci men Type: URINE SPECIMEN Ordering Facility: [facility] Address: [address] [place] [address] Performed By: #### 2 4356-8 #### [facility] CLIA [id number] [address] [place] [address] [place] WBC LM.HPF (Urine sed) [#/Area] 0-5 /HPF Normal 0-5 /HPF [facility] Comment on above: Order Comment: Speci men Type: URINE SPECIMEN Ordering Facility: [facility] Address: [address] [place] [address] Performed By: #### 2 4356-8 #### [facility] CLIA [id number] [address] [place] [address] [place] Keri 06-13-20[facility] SALAZAR MELLO ([id number]) 1975 M [facility] Date Time Provider Department 06/13/25 LUC OLIVIER [facility] During your visit today, we recorded the following information about you: Luc Olivier, DO 06/13/2025 7:52 AM Signed Please let Richard know that his xray shows that he has degenerative joint and disc disease changes as below. Can consider PHYSICAL THERAPY and pain mgmt for neck injections if needed for pain improvement RESULT: Cervical vertebrae demonstrate normal height. Straightening of the normal cervical lordosis. Atlantodental interval is not widened. Scattered disc space narrowing, most pronounced at C6-7. Scattered osteophytes and facet arthrosis. On the right, moderate bony neural foraminal stenosis at C3-4 and mild bony neural foraminal stenosis at C4-5. On the left, moderate bony neural foraminal stenosis at C3-4. His labs show that his PSA is elevated. I would like him to have this rechecked with a urinalysis. No intercourse for 3 days prior to labs and avoid riding on tractor or horse etc prior to labs DO Roque De La Torre Jia NURYS 06/13/2025 10:31 AM Signed Pt. informed via My Chart. Allergies As of Date: 06/13/2025 Noted Allergy Reaction ROSUVASTATIN 05/16/2025 14 - Other: See Comments Date Reviewed: 06/01/2025 Reviewed by: Margaret Trujillo MA - Fully Assessed Primary Visit Diagnosis:Elevated PSA [R97.20] Order(s):PSA/PROSTATE SPECIFIC ANTIGEN SCREENING [SQPSAS1] Order #: [id number] FUTURE URINALYSIS, WITH MICROSCOPIC [SQUAWMIC] Order #: [id number] FUTURE Prescriptions as of 06/13/2025 - diclofenac (VOLTAREN ARTHRITIS PAIN) 1 % topical gel Apply to affected area four times daily. - pravastatin (PRAVACHOL) 80 mg tablet Take 80 mg by mouth once daily. - albuterol HFA (PROVENTIL HFA, VENTOLIN HFA) 90 mcg/actuation inhaler Inhale 2 Puffs as instructed every 6 hours as needed for wheezing/shortness of breath. - aspirin 81 mg chewable tablet Take 1 tablet by mouth once daily. - ezetimibe (ZETIA) 10 mg tablet Take 10 mg by mouth once daily. - celecoxib (CELEBREX) 100 mg capsule Take 100 mg by mouth once daily. - citalopram (CELEXA) 20 mg tablet Take by mouth once daily. - omeprazole (PRILOSEC) 20 mg capsule Take 20 mg by mouth once daily. - amLODIPine-benazepril (LOTREL) 5-20 mg per capsule Take 1 capsule by mouth once daily. - tamsulosin (FLOMAX) 0.4 mg Take 0.4 mg by mouth once daily. - prazosin (MINIPRESS) 1 mg cap Take 1 mg by mouth twice daily. - cetirizine (ZYRTEC) 10 mg tablet Take 10 mg by mouth once daily. - fluticasone propionate (FLONASE NASAL) Use in the nose. Problem List As Of Date 06/13/2025 Noted Resolved Mixed hyperlipidemia [E78.2] 03/01/2024 EVER on CPAP [G47.33] 03/01/2024 Essential hypertension [I10] 03/01/2024 Nightmares associated with chronic post-traumat*03/01/2024 Depressive disorder [F32.A] 03/01/2024 PTSD (post-traumatic stress disorder) [F43.10] 03/01/2024 Routine physical examination [Z00.00] 03/01/2024 Acute bursitis of left shoulder [M75.52] 05/16/2025 Acute pain of left shoulder [M25.512] 05/16/2025 Well adult exam [Z00.00] 05/16/2025 Chronic pain of both knees [M25.561, M25.562, G*05/16/2025 Arm paresthesia, left [R20.2] 05/16/2025 Osteoarthritis of spine with radiculopathy, cer*05/16/2025 Encounter Status:Closed by JIA GONZALES LPN on 06/13/25 [facility] CNTHERAPYon 06-11-2025 CNTHERAPY OT/PT/Speech Visit ( PTWS) SALAZAR MELLO ([id number]) 1975 M [facility] Date Time Provider Department 06/11/25 9:00 AM LOC [facility]WS Date Time Provider Department Center 06/11/2025 9:00 AM [id number], SEAN PTWS Margie Dockery Reason for Visit: PT Eval [747] Primary Visit Diagnosis:Arm paresthesia, left [R20.2] Other Visit Diagnosis:Osteoarthritis of spine with radiculopathy, cervical region [M47.22] Allergies As of Date: 06/11/2025 Noted Allergy Reaction ROSUVASTATIN 05/16/2025 14 - Other: See Comments Date Reviewed: 06/01/2025 Reviewed by: Margaret Trujillo MA - Fully Assessed Prescriptions as of 06/12/2025 - diclofenac (VOLTAREN ARTHRITIS PAIN) 1 % topical gel Apply to affected area four times daily. - pravastatin (PRAVACHOL) 80 mg tablet Take 80 mg by mouth once daily. - albuterol HFA (PROVENTIL HFA, VENTOLIN HFA) 90 mcg/actuation inhaler Inhale 2 Puffs as instructed every 6 hours as needed for wheezing/shortness of breath. - aspirin 81 mg chewable tablet Take 1 tablet by mouth once daily. - ezetimibe (ZETIA) 10 mg tablet Take 10 mg by mouth once daily. - celecoxib (CELEBREX) 100 mg capsule Take 100 mg by mouth once daily. - citalopram (CELEXA) 20 mg tablet Take by mouth once daily. - omeprazole (PRILOSEC) 20 mg capsule Take 20 mg by mouth once daily. - amLODIPine-benazepril (LOTREL) 5-20 mg per capsule Take 1 capsule by mouth once daily. - tamsulosin (FLOMAX) 0.4 mg Take 0.4 mg by mouth once daily. - prazosin (MINIPRESS) 1 mg cap Take 1 mg by mouth twice daily. - cetirizine (ZYRTEC) 10 mg tablet Take 10 mg by mouth once daily. - fluticasone propionate (FLONASE NASAL) Use in the nose. Health And Safety Technician: Addendum Therapy (PT/OT/Speech/Resp) ID: [id number] 06/11/2025 9:41 AM Author: LOC FORRESTER Signed by LOC FORRESTER PT on 06/11/2025 at 9:41 AM * * * This document replaces document [id number] * * * Document text: Program_ID:[id number] Access Code: [email or web address] URL: [email or web address] Date: 06-11-2025 Prepared By: Loc Forrester Program Notes Exercises - Single Arm Doorway Pec Stretch at 60 Elevation - 3 x daily - 7 x weekly - 1 sets - 3 reps - Seated Chin Tuck with Neck Elongation - 3 x daily - 7 x weekly - 1 sets - 10 reps - Seated Upper Trapezius Stretch - 3 x daily - 7 x weekly - 1 sets - 3 reps - Seated Upper Trapezius Stretch - 3 x daily - 7 x weekly - 1 sets - 3 reps Normal [facility] THERAPY NTon 06-11-2025 THERAPY NT HNO ID: [id number] Author: LOC FORRESTER PT Service: ? Author Type: Physical Therapist Type: Therapy (PT/OT/Speech/Resp) Filed: 06/11/2025 09:41 Note Text: Program_ID:[id number] Access Code: [email or web address] URL: [email or web address] Date: 06-11-2025 Prepared By: Loc Forrester Program Notes Exercises - Single Arm Doorway Pec Stretch at 60 Elevation - 3 x daily - 7 x weekly - 1 sets - 3 reps - Seated Chin Tuck with Neck Elongation - 3 x daily - 7 x weekly - 1 sets - 10 reps - Seated Upper Trapezius Stretch - 3 x daily - 7 x weekly - 1 sets - 3 reps - Seated Upper Trapezius Stretch - 3 x daily - 7 x weekly - 1 sets - 3 reps Normal [facility] 25(OH)D3 SerPl-mCncon 2024 25-hydroxyvitamin D3 [Mass/Vol] 38.0 ng/mL Normal 31.0-80.0 [facility] Comment on above: Order Comment: Speci men Type: BLOOD SPECIMEN Ordering Facility: [facility] Address: [address] [place] [address] Result Comment: Clas sification of 25 OH Vitamin D status: Deficiency/Insufficiency: < or = 30 ng/ml. Sufficiency/Optimal Levels: 31-80 ng/mL Toxicity: > 100 ng/mL. Test performed by chemiluminescent immunoassay. Performed By: #### P SAS1 #### [facility] CLIA [id number] [address] [place] [address] [place] CBC W Auto Differential pane l (Bld)on 06-01-2025 Basophils (Bld) [#/Vol] 10*3/uL Normal <0.11 [facility] Comment on above: Order Comment: Speci men Type: BLOOD SPECIMEN Ordering Facility: [facility] Address: [address] [place] [address] Performed By: #### P SAS1 #### [facility] IA [id number] [address] [place] [address] [place] Basophils/100 WBC (Bld) 0.3 % Normal [facility] Comment on above: Order Comment: Speci men Type: BLOOD SPECIMEN Ordering Facility: [facility] Address: [address] [place] [address] Performed By: #### P SAS1 #### [facility] IA [id number] [address] [place] [address] [place] Differential cell count method Nom (Bld) Auto Normal [facility] Comment on above: Order Comment: Speci men Type: BLOOD SPECIMEN Ordering Facility: [facility] Address: [address] [place] [address] Performed By: #### P SAS1 #### [facility] CLIA [id number] [address] [place] [address] [place] Eosinophils (Bld) [#/Vol] 0.20 10*3/uL Normal <0.46 [facility] Comment on above: Order Comment: Speci men Type: BLOOD SPECIMEN Ordering Facility: [facility] Address: [address] [place] [address] Performed By: #### P SAS1 #### [facility] CLIA [id number] [address] [place] [address] [place] Eosinophils/100 WBC (Bld) 3.4 % Normal [facility] Comment on above: Order Comment: Speci men Type: BLOOD SPECIMEN Ordering Facility: [facility] Address: [address] [place] [address] Performed By: #### P SAS1 #### [facility] CLIA [id number] [address] [place] [address] [place] Erythrocyte distribution width (RBC) [Ratio] 12.5 % Normal 11.5-15.0 [facility] Comment on above: Order Comment: Speci men Type: BLOOD SPECIMEN Ordering Facility: [facility] Address: [address] [place] [address] Performed By: #### P SAS1 #### [facility] CLIA [id number] [address] [place] [address] [place] Hematocrit (Bld) [Volume fraction] 39.9 % Normal 39.0-51.0 [facility] Comment on above: Order Comment: Speci men Type: BLOOD SPECIMEN Ordering Facility: [facility] Address: [address] [place] [address] Performed By: #### P SAS1 #### [facility] CLIA [id number] [address] [place] [address] [place] Hemoglobin (Bld) [Mass/Vol] 14.2 g/dL Normal 13.0-17.0 [facility] Comment on above: Order Comment: Speci men Type: BLOOD SPECIMEN Ordering Facility: [facility] Address: [address] [place] [address] Performed By: #### P SAS1 #### [facility] CLIA [id number] [address] [place] [address] [place] Immature granulocytes (Bld) [#/Vol] 10*3/uL Normal <0.10 [facility] Comment on above: Order Comment: Speci men Type: BLOOD SPECIMEN Ordering Facility: [facility] Address: [address] [place] [address] Performed By: #### P SAS1 #### [facility] CLIA [id number] [address] [place] [address] [place] Immature granulocytes/100 WBC (Bld) 0.2 % Normal [facility] Comment on above: Order Comment: Speci men Type: BLOOD SPECIMEN Ordering Facility: [facility] Address: [address] [place] [address] Performed By: #### P SAS1 #### [facility] CLIA [id number] [address] [place] [address] [place] Lymphocytes (Bld) [#/Vol] 2.13 10*3/uL Normal 1.00-4.00 [facility] Comment on above: Order Comment: Speci men Type: BLOOD SPECIMEN Ordering Facility: [facility] Address: [address] [place] [address] Performed By: #### P SAS1 #### [facility] CLIA [id number] [address] [place] [address] [place] Lymphocytes/100 WBC (Bld) 35.9 % Normal [facility] Comment on above: Order Comment: Speci men Type: BLOOD SPECIMEN Ordering Facility: [facility] Address: [address] [place] [address] Performed By: #### P SAS1 #### [facility] CLIA [id number] [address] [place] [address] [place] MCH (RBC) [Entitic mass] 32.2 pg Normal 26.0-34.0 [facility] Comment on above: Order Comment: Speci men Type: BLOOD SPECIMEN Ordering Facility: [facility] Address: [address] [place] [address] Performed By: #### P SAS1 #### [facility] CLIA [id number] [address] [place] [address] [place] MCHC (RBC) [Mass/Vol] 35.6 g/dL Normal 30.5-36.0 [facility] Comment on above: Order Comment: Speci men Type: BLOOD SPECIMEN Ordering Facility: [facility] Address: [address] [place] [address] Performed By: #### P SAS1 #### [facility] CLIA [id number] [address] [place] [address] [place] MCV (RBC) [Entitic vol] 90.5 fL Normal 80.0-100.0 [facility] Comment on above: Order Comment: Speci men Type: BLOOD SPECIMEN Ordering Facility: [facility] Address: [address] [place] [address] Performed By: #### P SAS1 #### [facility] CLIA [id number] [address] [place] [address] [place] Monocytes (Bld) [#/Vol] 0.51 10*3/uL Normal <0.87 [facility] Comment on above: Order Comment: Speci men Type: BLOOD SPECIMEN Ordering Facility: [facility] Address: [address] [place] [address] Performed By: #### P SAS1 #### [facility] CLIA [id number] [address] [place] [address] [place] Monocytes/100 WBC (Bld) 8.6 % Normal [facility] Comment on above: Order Comment: Speci men Type: BLOOD SPECIMEN Ordering Facility: [facility] Address: [address] [place] [address] Performed By: #### P SAS1 #### [facility] CLIA [id number] [address] [place] [address] [place] Neutrophils (Bld) [#/Vol] 3.07 10*3/uL Normal 1.45-7.50 [facility] Comment on above: Order Comment: Speci men Type: BLOOD SPECIMEN Ordering Facility: [facility] Address: [address] [place] [address] Performed By: #### P SAS1 #### [facility] CLIA [id number] [address] [place] [address] [place] Neutrophils/100 WBC (Bld) 51.6 % Normal [facility] Comment on above: Order Comment: Speci men Type: BLOOD SPECIMEN Ordering Facility: [facility] Address: [address] [place] [address] Performed By: #### P SAS1 #### [facility] CLIA [id number] [address] [place] [address] [place] Nucleated RBC (Bld) [#/Vol] 10*3/uL Normal <0.01 [facility] Comment on above: Order Comment: Speci men Type: BLOOD SPECIMEN Ordering Facility: [facility] Address: [address] [place] [address] Performed By: #### P SAS1 #### [facility] CLIA [id number] [address] [place] [address] [place] Nucleated RBC/100 WBC (Bld) [Ratio] 0.0 /100 WBC Normal [facility] Comment on above: Order Comment: Speci men Type: BLOOD SPECIMEN Ordering Facility: [facility] Address: [address] [place] [address] Performed By: #### P SAS1 #### [facility] CLIA [id number] [address] [place] [address] [place] Platelet mean volume (Bld) [Entitic vol] 8.9 fL Low 9.0-12.7 [facility] Comment on above: Order Comment: Speci men Type: BLOOD SPECIMEN Ordering Facility: [facility] Address: [address] [place] [address] Performed By: #### P SAS1 #### [facility] CLIA [id number] [address] [place] [address] [place] Platelets (Bld) [#/Vol] 214 10*3/uL Normal 150-400 [facility] Comment on above: Order Comment: Speci men Type: BLOOD SPECIMEN Ordering Facility: [facility] Address: [address] [place] [address] Performed By: #### P SAS1 #### [facility] CLIA [id number] [address] [place] [address] [place] RBC (Bld) [#/Vol] 4.41 10*6/uL Normal 4.20-6.00 [facility] Comment on above: Order Comment: Speci men Type: BLOOD SPECIMEN Ordering Facility: [facility] Address: [address] [place] [address] Performed By: #### P SAS1 #### [facility] CLIA [id number] [address] [place] [address] [place] WBC (Bld) [#/Vol] 5.94 10*3/uL Normal 3.70-11.00 [facility] Comment on above: Order Comment: Speci men Type: BLOOD SPECIMEN Ordering Facility: [facility] Address: [address] [place] [address] Performed By: #### P SAS1 #### [facility] CLIA [id number] [address] [place] [address] [place] CNOVon 06-01-2025 [facility] SALAZAR MELLO ([id number]) 1975 M CHT Date Time Provider Department 06/01/25 2:30 PM JAVIER AHUMADA [facility] During your visit today, we recorded the following information about you: Margaret Trujillo MA 06/01/2025 2:36 PM Signed AMB ROOMING INTAKE FLOWSHEET DATA Pain Pain Level: 7 Pain Location: (bilateral knees) Description: Sharp (left knee gives out) Duration Amount of Time: 10 Duration Units: Years Frequency: Continuous Intervention/Comfort measure: Cold, Medication Javier Ahumada V, DO 06/01/2025 2:36 PM Signed Subjective Richard Mello is a 49-year-old male, with a history of chronic bilateral knee pain, presenting for evaluation and management. Richard reports a 10+ year history of chronic bilateral knee pain, with the left knee being more symptomatic than the right. The pain is primarily located beneath the patella and is exacerbated by physical activity, leading to swelling. He denies erythema or increased warmth. 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 He denies any specific acute injuries, but recalls being informed of a partial meniscal tear in one knee, though he cannot recall which one. [facility], but his [facility] have been canceled, prompting him to seek alternative care. He also manages his symptoms with Celebrex and topical Voltaren gel, which provide some relief. He has previously tried PRP and stem cell injections without significant benefit. He has modified his activities to avoid exacerbating his symptoms, including discontinuing running and focusing on upper body weightlifting. He occasionally walks, depending on his knee condition. He denies using knee braces or compression wraps and has not tried glucosamine or chondroitin sulfate supplements. Musculoskeletal: (+) bilateral knee pain left greater than right, (+) bilateral knee swelling Objective There were no vitals taken for this visit. General: No acute distress. MSK/Ext: Left knee swelling greater than right knee; bilateral patellar manipulation elicits discomfort; mild discomfort with palpation of bilateral knees. No laxity with ligament testing. Labs (No diagnostics in this category) Tests (No diagnostics in this category) Imaging (Today) Bilateral Knee X-ray: - Medial compartment narrowing noted (mild) - Patellofemoral narrowing - Mild patellar tilt on the left - No [id number] changes MRI of the knee (date not provided): Partial meniscal tear in one knee (side not specified) Assessment AND Plan 1. Chronic pain of both knees (M25.561) 2. Primary osteoarthritis of both knees (M17.0) Chronic bilateral knee pain and swelling, left greater than right, with history of service involving repetitive impact activities. X-rays show mild medial and patellofemoral compartment narrowing, more pronounced on the left, consistent with early osteoarthritic changes. - Continue current regimen of Celebrex and topical Voltaren gel. - Discussed prior Synvisc injections; will initiate prior authorization for viscosupplementation (e.g., Synvisc, Supartz, Durolane, Hyalgan, Gel-One) through [facility] [place]. - Discussed alternative options, including corticosteroid injections for acute flares. - Educated on the role of viscosupplementation in lubricating the joint and managing symptoms; reviewed that insurance typically approves every 6 months. - Discussed glucosamine and chondroitin sulfate supplements (e.g., Osteo Bi-Flex) as a non-NSAID adjunct; advised trial for 1 month to assess benefit. - Reviewed prior PRP and stem cell treatments; explained current evidence and insurance coverage limitations. - Advised continuation of activity modification to protect joints and maintain function. - Will contact patient once prior authorization is approved to schedule injections. 3. Personal history of service (Z91.85) Recording using [employer] software for draft documentation of the visit was discussed with the patient/authorized front desk representative; all questions welcomed and answered. Patient/authorized front desk representative agreed to proceed Referring Provider: SELF [200] Allergies As of Date: 06/01/2025 Noted Allergy Reaction ROSUVASTATIN 05/16/2025 14 - Other: See Comments Date Reviewed: 06/01/2025 Reviewed by: Margaret Trujillo MA - Fully Assessed Reason for Visit: Bilateral Knee Pain [1210] Primary Visit Diagnosis:Chronic pain of both knees [M25.561, M25.562, G89.29] Other Visit Diagnoses:Primary osteoarthritis of both knees [M17.0] Personal history of service [Z91.85] Prescriptions as of 06/01/2025 - diclofenac (VOLTAREN ARTHRITIS PAIN) 1 % topical gel Apply to affected ar (more content not included)... Normal [facility] Keri 06-01-2025 BARNEY Telephone (ORTHWS) RIAZSALAZAR ([id number]) 1975 M [facility] Date Time Provider Department 06/01/25 JAVIER AHUMADA During your visit today, we recorded the following information about you: Margaret Trujillo MA 06/01/2025 2:40 PM Signed Referral placed for Synvisc injection into bilateral knees. Margaret Trujillo MA 06/08/2025 9:27 AM Signed Patient's insurance does not require authorization for Synvisc. He has been contacted and scheduled on 06/22/2025. He reports that he had Synvisc One in the past and would prefer to stay with the one time injection. Allergies As of Date: 06/01/2025 Noted Allergy Reaction ROSUVASTATIN 05/16/2025 14 - Other: See Comments Date Reviewed: 06/01/2025 Reviewed by: Margaret Trujillo MA - Fully Assessed Reason for Visit: Synvisc referral [Other] Prescriptions as of 06/08/2025 - diclofenac (VOLTAREN ARTHRITIS PAIN) 1 % topical gel Apply to affected area four times daily. - pravastatin (PRAVACHOL) 80 mg tablet Take 80 mg by mouth once daily. - albuterol HFA (PROVENTIL HFA, VENTOLIN HFA) 90 mcg/actuation inhaler Inhale 2 Puffs as instructed every 6 hours as needed for wheezing/shortness of breath. - aspirin 81 mg chewable tablet Take 1 tablet by mouth once daily. - ezetimibe (ZETIA) 10 mg tablet Take 10 mg by mouth once daily. - celecoxib (CELEBREX) 100 mg capsule Take 100 mg by mouth once daily. - citalopram (CELEXA) 20 mg tablet Take by mouth once daily. - omeprazole (PRILOSEC) 20 mg capsule Take 20 mg by mouth once daily. - amLODIPine-benazepril (LOTREL) 5-20 mg per capsule Take 1 capsule by mouth once daily. - tamsulosin (FLOMAX) 0.4 mg Take 0.4 mg by mouth once daily. - prazosin (MINIPRESS) 1 mg cap Take 1 mg by mouth twice daily. - cetirizine (ZYRTEC) 10 mg tablet Take 10 mg by mouth once daily. - fluticasone propionate (FLONASE NASAL) Use in the nose. Problem List As Of Date 06/01/2025 Noted Resolved Mixed hyperlipidemia [E78.2] 03/01/2024 EVER on CPAP [G47.33] 03/01/2024 Essential hypertension [I10] 03/01/2024 Nightmares associated with chronic post-traumat*03/01/2024 Depressive disorder [F32.A] 03/01/2024 PTSD (post-traumatic stress disorder) [F43.10] 03/01/2024 Routine physical examination [Z00.00] 03/01/2024 Acute bursitis of left shoulder [M75.52] 05/16/2025 Acute pain of left shoulder [M25.512] 05/16/2025 Well adult exam [Z00.00] 05/16/2025 Chronic pain of both knees [M25.561, M25.562, G*05/16/2025 Arm paresthesia, left [R20.2] 05/16/2025 Osteoarthritis of spine with radiculopathy, cer*05/16/2025 Encounter Status:Closed by MARGARET TRUJILLO on 06/08/25 Normal [facility] HbA1c (Bld)on 06-01-2025 Average glucose Estimated from glycated hemoglobin (Bld) [Mass/Vol] 105 mg/dL Normal [facility] Comment on above: Order Comment: Speci men Type: BLOOD SPECIMENOrdering Facility: [facility] Address: [address] [place] [address] Result Comment: eAG: (Estimated average glucose) is a calculated value from HgbA1c and is front desk representative of the average blood glucose level in the last 2-3 month period. Performed By: #### 5 5454-3 ####[facility] LAB[facility] [id number] [place] [address] [place] HbA1c (Bld) [Mass fraction] 5.3 % Normal 4.3-5.6 [facility] Comment on above: Order Comment: Speci men Type: BLOOD SPECIMENOrdering Facility: [facility] Address: [address] [place] [address] Result Comment: Amer ican Diabetes Association guidelines indicate that patients with HgbA1c in the range 5.7-6.4% are at increased risk for development of diabetes, and intervention by lifestyle modification may be beneficial. HgbA1c greater or equal to 6.5% is considered diagnostic of diabetes. Performed By: #### 5 5454-3 ####[facility] LAB[facility]IA [id number] [place] [address] [place] PSA/PROSTATE SPECIFIC ANTIGE N SCREENINGon 06-01-2025 Prostate specific Ag [Mass/Vol] 4.14 ng/mL High <2.60 [facility] Comment on above: Order Comment: Speci men Type: BLOOD SPECIMEN [facility]: [facility] Address: [address] [place] [address] Result Comment: Tota l PSA test methodology used is the Electrochemiluminescence Immunoassay by [employer]. Total PSA values by differing methodologies cannot be interchanged. For an individual patient, the significance of a PSA level should be interpreted in a broad clinical context, including age, race, family history, digital rectal exam, prostate size, results of prior testing (prostate biopsy, free PSA, PCA3), and use of 5-alpha reductase inhibitors. Considering the high incidence of asymptomatic cancer in the general population that may not pose an ultimate risk to a patient, the decision to recommend urological evaluation or prostate biopsy should be individualized after consideration of all these factors. REFERENCE: Phill Cedeno M.D., M.P.H., Kenny Maradiaga M.D., Ph.D., Darin Srinivasan M.D., Irais Scruggs, M.P.H., Amanda Mcfarlane, Sc.Diana. Effect of Verification Bias on Screening for Prostate Cancer by Measurement of Prostatic Specific Antigen. N Engl J Med 2003,349:335-42. Performed By: #### P SAS1 #### [facility] CLIA [id number] [address] [place], [place] [id number] [place] T4 Free SerPl-mCncon 025 Free T4 [Mass/Vol] 1.1 ng/dL Normal 0.9-1.7 [facility] Comment on above: Order Comment: Speci men Type: BLOOD SPECIMEN [facility] Address: [address] [place] [address] Performed By: #### P SAS1 #### [facility] CLIA [id number] [address] [place], [place] [id number] [place] TSH SerPl-aCncon 06-01-2025 TSH Qn 1.180 m[IU]/L Normal 0.270-4.200 [facility] Comment on above: Order Comment: Speci men Type: BLOOD SPECIMEN [facility] Address: [address] [place] [address] Performed By: #### P SAS1 #### [facility] CLIA [id number] [address] [place], [place] [id number] [place] Vit B12 SerPl-mCncon 025 Cobalamin (Vitamin B12) [Mass/Vol] 623 pg/mL Normal 232-1245 [facility] Comment on above: Order Comment: Speci men Type: BLOOD SPECIMEN [facility] Address: [address] [place] [address] Performed By: #### P SAS1 #### [facility] CLIA [id number] [address] [place], [place] [id number] [place] XR CERVICAL 4V AP/LAT/OBLon 06-01-2025 XR CERVICAL 4V AP/LAT/OBL * * *Final Report* * * DATE OF EXAM: Jun 01 2025 2:17PM [id number] - XR CERVICAL 4V AP/LAT/OBL / PROCEDURE REASON: multiple diagnoses * * * * Physician Interpretation * * * * EXAMINATION / TECHNIQUE: XR CERVICAL 4V AP/LAT/OBL HISTORY: PT STATES HISTORY OF NECK PAIN AND LEFT ARM NUMBNESS DOWN TO DIGITS Osteoarthritis of spine with radiculopathy, cervical region Arm paresthesia, left . COMPARISON: None RESULT: Cervical vertebrae demonstrate normal height. Straightening of the normal cervical lordosis. Atlantodental interval is not widened. Scattered disc space narrowing, most pronounced at C6-7. Scattered osteophytes and facet arthrosis. On the right, moderate bony neural foraminal stenosis at C3-4 and mild bony neural foraminal stenosis at C4-5. On the left, moderate bony neural foraminal stenosis at C3-4. Counting reference: Craniocervical junction. Anatomic Variants: None. IMPRESSION: Degenerative changes without acute osseous findings. Braille Proofreader: [facility] Transcribe Date/Time: Jun 10 2025 9:16A Dictated by : TEJINDER ABDI MD This examination was interpreted and the report reviewed and electronically signed by: TEJINDER ABDI MD on Jun 10 2025 9:18AM EST [id number] Normal [facility] XR KNEE 4V AP/PA/LAT/MERCH B [facility] 06-01-2025 XR KNEE 4V AP/PA/LAT/MERCH HEMANTH * * *Final Report* * * DATE OF EXAM: Jun 01 2025 2:16PM [id number] - XR KNEE 4V AP/PA/LAT/MERCH HEMANTH / PROCEDURE REASON: multiple diagnoses * * * * Physician Interpretation * * * * EXAMINATION / TECHNIQUE: XR KNEE 4V AP/PA/LAT/MERCH HEMANTH HISTORY: PT STATES BILAT KNEE PAIN REQUESTING INJECTION Pain in both knees, unspecified chronicity Pain in both knees, unspecified chronicity . COMPARISON: None RESULT: Right knee: Mild joint space narrowing medial compartment with minimal osteophytes at the medial and patellofemoral compartments. No substantial joint effusion. No acute fracture, malalignment, or erosive changes are identified. Left knee: Minimal joint space narrowing medial compartment with minimal osteophytes at the patellofemoral and lateral compartments. No substantial joint effusion. No acute fracture, malalignment, or erosive changes are identified. IMPRESSION: Mild degenerative changes without acute osseous findings. Braille Proofreader: [facility] Transcribe Date/Time: Jun 10 2025 9:13A Dictated by : TEJINDER ABDI MD This examination was interpreted and the report reviewed and electronically signed by: TEJINDER ABDI MD on Jun 10 2025 9:15AM EST [id number] Normal [facility] CNOVon 05-16-2025 CNOV Office Visit (FAMPWS ) SALAZAR MELLO ([id number]) 1975 M [facility] Date Time Provider Department 05/16/25 5:00 PM [facility] During your visit today, we recorded the following information about you: Temperature Pulse Respiration Blood pressure 97 degrees 68/minute 16/minute 130/82 Weight Height 110.7 kg 1.79 m Luc Olivier, 05/16/2025 6:04 PM Signed CC: Salazarrafaela Mello is a 49 year old male who presents to the office for physical HPI: Left neck pain, radiating into Left arm, significant symptoms. Present as numbness and tingling and pain into left lateral arm into the hand, worse with adduction of arm and better with abduction. Has had cervical DDD and DJD long standing. Seems to be worsening with his symptoms, no recent injuries. Has had PHYSICAL THERAPY and dry needling for this in the past with benefit Hx of left rotator cuff tear and dysfunction. Had surgical repair in 1992. Has intermittent pain symptoms. Recent he has aggravated his shoulder on left by Picking a cooler up and felt a pop in left shoulder, has felt discomfort the last few weeks since this happened. Use of ice and rest and NSAIDs without full improvement in symptoms. HPL, tolerating the pravastatin without SE, had SE with Crestor. B/l knee pain, arthritis, has been getting synvisc/euflexxa injections every 6 months, [facility]'t [facility] after [facility] his last appt, this is starting to cause him more difficulty with his job and walking and ambulation. PAST MEDICAL HISTORY Diagnosis Date Depressive disorder Essential hypertension Mixed hyperlipidemia Nightmares associated with chronic post-traumatic stress disorder EVER on CPAP PTSD (post-traumatic stress disorder) PAST SURGICAL HISTORY Procedure Laterality Date APPENDECTOMY 1981 PAST SURGICAL HISTORY OF 05/04/2021 back L5 S1 PAST SURGICAL HISTORY OF Left 2010 Left arm Ulnar shortening PAST SURGICAL HISTORY OF Left 1992 left shoulder Rotater cuff TONSILLECTOMY AND ADENOIDECTOMY Social History: SOCIAL HISTORY[1] FAMILY HISTORY Problem Relation Age of Onset Hypertension Mother Hyperlipidemia Mother Hypertension Father Hyperlipidemia Father Heart Attack Father 66 Heart Maternal Grandmother Stroke Paternal Grandmother Heart Attack Paternal Grandfather Current Outpatient prescriptions: pravastatin (PRAVACHOL) 80 mg tablet Take 80 mg by mouth once daily. albuterol HFA (PROVENTIL HFA, VENTOLIN HFA) 90 mcg/actuation inhaler Inhale 2 Puffs as instructed every 6 hours as needed for wheezing/shortness of breath. aspirin 81 mg chewable tablet Take 1 tablet by mouth once daily. ezetimibe (ZETIA) 10 mg tablet Take 10 mg by mouth once daily. celecoxib (CELEBREX) 100 mg capsule Take 100 mg by mouth once daily. citalopram (CELEXA) 20 mg tablet Take by mouth once daily. omeprazole (PRILOSEC) 20 mg capsule Take 20 mg by mouth once daily. amLODIPine-benazepril (LOTREL) 5-20 mg per capsule Take 1 capsule by mouth once daily. tamsulosin (FLOMAX) 0.4 mg Take 0.4 mg by mouth once daily. prazosin (MINIPRESS) 1 mg cap Take 1 mg by mouth twice daily. cetirizine (ZYRTEC) 10 mg tablet Take 10 mg by mouth once daily. fluticasone propionate (FLONASE NASAL) Use in the nose. Allergies: ALLERGIES Allergen Reactions Rosuvastatin Other: See Comments ROS: See HPI PE: 05/16/25 1653 BP: 130/82 Pulse: 68 Resp: 16 Temp: 36.1 ?C (97 ?F) TempSrc: Left Tympanic Weight: 110.7 kg (244 lb) Height: 179 cm (5' 10.47) Gen: AANDO, NAD, non-toxic appearing, Pleasant, cooperative HEENT: NT/AC, PERRLA, EOMs intact b/l, nares clear and patent b/l, pharynx without erythema, exudate or lesions. MMM, Uvula midline. EACs without erythema or debris. TMs pearly rudd with intact landmarks b/l. Neck: supple, No cervical LAD, no thyromegaly, no carotid bruits, + significant muscle spasms left >right neck with pain with ROM and radicular symptoms CV: RRR, normal S1 and S2, no murmurs, no gallops, no rubs, Pulses 2+ and symmetric in UE and LE b/l Lungs: normal respiratory effort, CTA b/l, no wheezing or rhonchi or rales Abd: soft, NT, ND, +BS, no hepatosplenomegaly MS left shoulder bursa swelling and restriction of rotator cuff without signs of tear but with pain with ROM, intact biceps and triceps tendons. B/l knee pain joint with effusions present Neuro: CN II-XII intact b/l, strength 5/5 b/l UE and LE, DTRs 2/4 UE and LE, sensation intact. Skin: warm, dry, intact, No rashes or lesions on exposed skin. No edema, normal pulses Injection of 2 cc of 2% lidocaine plain, 1 cc of 6 mg of Betamethasone was given to the left shoulder joint by posterior lateral approach after area was cleaned and sterilized with 3 povidine-iodine washes. Patient advised to ice 10 minutes every two hours after the injectio (more content not included)... Normal [facility] Urgent Care Visit Reporton 0 12-25-2024 Urgent Care Visit Report [facility] [address], [address] [place] [address] OFFICE VISIT Date of Service: 12/25/24 MR#: [id number] Acct: [id number] Name: SALAZAR MELLO Rep #: [id number] : 1975 Provider: JULIETTE Shin Age/Sex: 49/M Location: [facility] Status: Signed Intake Intake Visit Reasons: dot physical/ crw Accompanied by: Self Allergies Seasonal Allergies: Uncoded Allergy (Verified 12/25/24 10:46) Other Medications ???Medication ???Instructions ???Recorded ???Confirmed ???Type amlodipine 5 mg tablet 5 mg PO QDAY 12/25/24 12/25/24 His tory benazepril 10 mg tablet 10 mg PO QDAY 12/25/24 12/25/24 Hi story celecoxib 100 mg capsule 100 mg PO BID 12/25/24 12/25/24 Hi story citalopram 30 mg capsule 30 mg PO QDAY 12/25/24 12/25/24 Hi story ezetimibe 10 mg tablet 10 mg PO QDAY 12/25/24 12/25/24 Hi story omeprazole 40 mg capsule,delayed 40 mg PO QDAY 12/25/24 12/25/24 Hi story release prazosin 2 mg capsule 2 mg PO QHS 12/25/24 12/25/24 Hist ory rosuvastatin 20 mg tablet 20 mg PO QDAY 12/25/24 12/25/24 Hi story tamsulosin 0.4 mg capsule 0.4 mg PO QDAY 12/25/24 12/25/24 H istory Nurse's Note: Patient here for a DOT physical. [facility] Social History (Updated 12/25/24 @ 10:49 by Lalitha Krueger MA) Smoking Status: Never smoker alcohol intake: current alcohol intake frequency: a few times a week Alcohol type: beer HPI HPI Details: SALAZAR MELLO, is a 49 M who presents to the office today for Office Procedures Physical Exam Coding PE Coding DOT PE: Yes Coding Level of Care Code No Charge Diagnoses Encounter for examination required by Department of Transportation (DOT) Z02.89 Assessment and Plan Assessment and Plan (1) Encounter for examination required by Department of Transportation (DOT): Status: Acute 12/25/24 1140 Date Foreign Laguerre Signature: Date (if applicable) CC: [facility] CNOVon 11-14-2024 CNOV Office Visit (FAMPWS ) SALAZAR MELLO ([id number]) 1975 M [facility] Date Time Provider Department 11/14/24 4:00 PM NHI BECERRIL During your visit today, we recorded the following information about you: Temperature Pulse Blood pressure Weight 97.9 degrees 74/minute 132/80 108.9 kg Nhi Becerril, RATE SETTER.GALLERY MANAGER 11/14/2024 4:04 PM Signed This is a 49 year old male who presents today with: Patient presents with: Testicular Pain: Swelling in left testicle. Started late 11/11/24. Blood In Urine: When sitting down to push with bowel movement HISTORY OF PRESENT ILLNESS: Salazar Mello is a 49 year old male. Patient presents with: Testicular Pain: Swelling in left testicle. Started late 11/11/24. Blood In Urine: When sitting down to push with bowel movement Left testicle pain started Wednesday evening. Very painful that day into Wednesday. Swelled up. No fever or chills No headache or body aches. Denies chance of STD per pt. PAST MEDICAL HISTORY: PAST MEDICAL HISTORY Diagnosis Date Depressive disorder Essential hypertension Mixed hyperlipidemia Nightmares associated with chronic post-traumatic stress disorder EVER on CPAP PTSD (post-traumatic stress disorder) PAST SURGICAL HISTORY Procedure Laterality Date APPENDECTOMY 1981 PAST SURGICAL HISTORY OF 05/04/2021 back L5 S1 PAST SURGICAL HISTORY OF Left 2010 Left arm Ulnar shortening PAST SURGICAL HISTORY OF Left 1992 left shoulder Rotater cuff TONSILLECTOMY AND ADENOIDECTOMY ALLERGIES Patient has no known allergies. MEDICATIONS Current Outpatient Medications Medication Sig pravastatin (PRAVACHOL) 80 mg tablet Take 80 mg by mouth once daily. albuterol HFA (PROVENTIL HFA, VENTOLIN HFA) 90 mcg/actuation inhaler Inhale 2 Puffs as instructed every 6 hours as needed for wheezing/shortness of breath. aspirin 81 mg chewable tablet Take 1 tablet by mouth once daily. ezetimibe (ZETIA) 10 mg tablet Take 10 mg by mouth once daily. celecoxib (CELEBREX) 100 mg capsule Take 100 mg by mouth once daily. citalopram (CELEXA) 20 mg tablet Take by mouth once daily. omeprazole (PRILOSEC) 20 mg capsule Take 20 mg by mouth once daily. amLODIPine-benazepril (LOTREL) 5-20 mg per capsule Take 1 capsule by mouth once daily. tamsulosin (FLOMAX) 0.4 mg Take 0.4 mg by mouth once daily. prazosin (MINIPRESS) 1 mg cap Take 1 mg by mouth twice daily. cetirizine (ZYRTEC) 10 mg tablet Take 10 mg by mouth once daily. fluticasone propionate (FLONASE NASAL) Use in the nose. rosuvastatin (CRESTOR) 20 mg tablet Take 1 tablet by mouth daily at bedtime. No current facility-administered medications for this visit. FAMILY HISTORY Problem Relation Age of Onset Hypertension Mother Hyperlipidemia Mother Hypertension Father Hyperlipidemia Father Heart Attack Father 66 Heart Maternal Grandmother Stroke Paternal Grandmother Heart Attack Paternal Grandfather Social History Tobacco Use Smoking status: Former Types: Cigarettes EXAM: BP 132/80 Pulse 74 Temp 36.6 ?C (97.9 ?F) (Left Tympanic) Wt 108.9 kg (240 lb) SpO2 97% BMI 34.44 kg/m? PHYSICAL EXAM: Physical Exam Vitals reviewed. Constitutional: Appearance: Normal appearance. Genitourinary: Comments: Left testicle tender to palpate in the posterior aspect. Very minimal pain. No redness, heat, or open areas indicating a cellulitis Skin: General: Skin is warm and dry. Neurological: Mental Status: He is alert and oriented to person, place, and time. LABS: Labs from [place] recently per pt. Indicated renal function normal ASSESSMENT/PLAN: 1. Left epididymitis - ICD9: 604.90, ICD10: N45.1 Denies chance of STD - URINALYSIS, WITH MICROSCOPIC - SULFAMETHOXAZOLE 800 MG-TRIMETHOPRIM 160 MG TABLET 2 x day for 10 days Discussed treatment plan and patient voices understanding. Patient's questions answered appropriately. Medications and potential side effects were discussed and patient voices understanding. Return to the office as scheduled or as needed for worsening/no improvement. ELVIS Perez Jacqueline A, APRN.CNP 11/14/2024 4:04 PM Signed 1) Bactrim DS 2 x day for 10 days- take with at least 8 oz water each tablet 2) Get urinalysis done 3) If able, attach [facility] labs to my Chart Allergies As of Date: 11/14/2024 (No Known Allergies) Date Reviewed: 11/14/2024 Reviewed by: Stacie Boone MA - Fully Assessed Reason for Visit: Testicular Pain [823] Cmt: Swelling in left testicle. Started late 11/11/24. Blood In Urine [3904] Cmt: When sitting down to push with bowel movement Primary Visit Diagnosis:Left epididymitis [N45.1] Order(s):URINALYSIS, WITH MICROSCOPIC [SQUAWMIC] Order #: [id number] sulfamethoxazole-trimethopri m (BACTRIM DS) 800-160 mg per tabletTake 1 tablet by mouth two times a day for 10 days.Disp: 20 tabletRfl: 0 Prescriptions as of (more content not included)... Normal [facility] Urinalysis complete panel (U )on 11-14-2024 Bacteria LM.HPF (Urine sed) [#/Area] Negative Normal Negative [facility] Comment on above: Order Comment: Speci men Type: BLOOD SPECIMEN [facility] Address: [address] [place] [address] Performed By: #### P SAS1 #### [facility] CLIA [id number] [address] [place] [address] [place] Bilirubin Ql (U) Negative Normal [facility] Comment on above: Order Comment: Speci men Type: BLOOD SPECIMEN Ordering Facility: [facility] Address: [address] [place] [address] Performed By: #### P SAS1 #### [facility] CLIA [id number] [address] [place] [address] [place] Clarity (Unsp spec) Clear Normal Clear [facility] Comment on above: Order Comment: Speci men Type: BLOOD SPECIMEN Ordering Facility: [facility] Address: [address] [place] [address] Performed By: #### P SAS1 #### [facility] CLIA [id number] [address] [place] [address] [place] [facility] Color (U) Yellow Normal Yellow [facility] Comment on above: Order Comment: Speci men Type: BLOOD SPECIMEN Ordering Facility: [facility] Address: [address] [place] [address] Performed By: #### P SAS1 #### [facility] CLIA [id number] [address] [place] [address] [place] Epithelial cells LM.HPF (Urine sed) [#/Area] None Seen Normal [facility] Comment on above: Order Comment: Speci men Type: BLOOD SPECIMEN Ordering Facility: [facility] Address: [address] [place] [address] Performed By: #### P SAS1 #### [facility] CLIA [id number] [address] [place] [address] [place] Glucose Test strip (U) [Mass/Vol] Negative Normal Negative [facility] Comment on above: Order Comment: Speci men Type: BLOOD SPECIMEN Ordering Facility: [facility] Address: [address] [place] [address] Performed By: #### P SAS1 #### [facility] CLIA [id number] [address] [place] [address] [place] Hemoglobin Ql (U) Negative Normal Negative [facility] Comment on above: Order Comment: Speci men Type: BLOOD SPECIMEN Ordering Facility: [facility] Address: [address] [place] [address] Performed By: #### P SAS1 #### [facility] CLIA [id number] [address] [place] [address] [place] Hyaline casts (Urine sed) [#/Area] 0 /[LPF] Normal 0 /LPF [facility] Comment on above: Order Comment: Speci men Type: BLOOD SPECIMEN Ordering Facility: [facility] Address: [address] [place] [address] Performed By: #### P SAS1 #### [facility] CLIA [id number] [facility] [place] [id number] [place] Ketones Ql (U) Negative Normal Negative [facility] Comment on above: Order Comment: Speci men Type: BLOOD SPECIMEN Ordering Facility: [facility] Address: [address] [place] [address] Performed By: #### P SAS1 #### [facility] CLIA [id number] [address] [place], [place] [id number] [place] Leukocyte esterase Test strip Ql (U) Negative Normal Negative [facility] Comment on above: Order Comment: Speci men Type: BLOOD SPECIMEN Ordering Facility: [facility] Address: [address] [place] [address] Performed By: #### P SAS1 #### [facility] CLIA [id number] [address] [place] [address] [place] Nitrite Ql (U) Negative Normal Negative [facility] Comment on above: Order Comment: Speci men Type: BLOOD SPECIMEN Ordering Facility: [facility] Address: [address] [place] [address] Performed By: #### P SAS1 #### [facility] CLIA [id number] [address] [place] [address] [place] pH (U) 6.5 [pH] Normal <8.5 [facility] Comment on above: Order Comment: Speci men Type: BLOOD SPECIMEN Ordering Facility: [facility] Address: [address] [place] [address] Performed By: #### P SAS1 #### [facility] CLIA [id number] [address] [place] [address] [place] Protein (U) [Mass/Vol] Negative Normal Negative [facility] Comment on above: Order Comment: Speci men Type: BLOOD SPECIMEN Ordering Facility: [facility] Address: [address] [place] [address] Performed By: #### P SAS1 #### [facility] CLIA [id number] [address] [place] [address] [place] RBC LM.HPF (Urine sed) [#/Area] 0-2 /HPF Normal 0-2 /HPF [facility] Comment on above: Order Comment: Speci men Type: BLOOD SPECIMEN Ordering Facility: [facility] Address: [address] [place] [address] Performed By: #### P SAS1 #### [facility] CLIA [id number] [address] [place] [address] [place] Specific gravity (U) [Rel density] 1.012 Normal 1.005-1.030 [facility] Comment on above: Order Comment: Speci men Type: BLOOD SPECIMEN Ordering Facility: [facility] Address: [address] [place] [address] Performed By: #### P SAS1 #### [facility] CLIA [id number] [address] [place] [address] [place] Urobilinogen Ql (U) 0.2 EU/dL Normal 0.2-1.0 EU/dL [facility] Comment on above: Order Comment: Speci men Type: BLOOD SPECIMEN Ordering Facility: [facility] Address: [address] [place] [address] Performed By: #### P SAS1 #### [facility] CLIA [id number] [address] [place] [address] [place] WBC LM.HPF (Urine sed) [#/Area] 0-5 /HPF Normal 0-5 /HPF [facility] Comment on above: Order Comment: Speci men Type: BLOOD SPECIMEN Ordering Facility: [facility] Address: [address] [place] [address] Performed By: #### P SAS1 #### [facility] CLIA [id number] [address] [place] [address] [place] CNPNon 02-03-2025 CNPN Telephone (FAMPWS) SALAZAR MELLO ([id number]) 1975 M [facility] Date Time Provider Department 10/23/24 [facility] During your visit today, we recorded the following information about you: Luc Olivier DO 10/23/2024 8:13 AM Signed The following approved medication requests have been transmitted electronically. Requested Prescriptions Signed Prescriptions Disp Refills azithromycin (ZITHROMAX Z-ZEYAD) 250 mg tablet 6 tablet 1 Sig: Take 2 tablets day one, then, 1 tablet daily until gone. Authorizing Provider: LUC OLIVIER DO Allergies As of Date: 10/23/2024 (No Known Allergies) Date Reviewed: 10/18/2024 Reviewed by: Heavenly Cancino MA - Fully Assessed Visit Diagnosis:Productive cough [R05.8] Order(s):[] azithromycin (ZITHROMAX Z-ZEYAD) 250 mg tabletTake 2 tablets day one, then, 1 tablet daily until gone.Disp: 6 tabletRfl: 1 Prescriptions as of 12/08/2024 - pravastatin (PRAVACHOL) 80 mg tablet Take 80 mg by mouth once daily. - albuterol HFA (PROVENTIL HFA, VENTOLIN HFA) 90 mcg/actuation inhaler Inhale 2 Puffs as instructed every 6 hours as needed for wheezing/shortness of breath. - rosuvastatin (CRESTOR) 20 mg tablet Take 1 tablet by mouth daily at bedtime. - aspirin 81 mg chewable tablet Take 1 tablet by mouth once daily. - ezetimibe (ZETIA) 10 mg tablet Take 10 mg by mouth once daily. - celecoxib (CELEBREX) 100 mg capsule Take 100 mg by mouth once daily. - citalopram (CELEXA) 20 mg tablet Take by mouth once daily. - omeprazole (PRILOSEC) 20 mg capsule Take 20 mg by mouth once daily. - amLODIPine-benazepril (LOTREL) 5-20 mg per capsule Take 1 capsule by mouth once daily. - tamsulosin (FLOMAX) 0.4 mg Take 0.4 mg by mouth once daily. - prazosin (MINIPRESS) 1 mg cap Take 1 mg by mouth twice daily. - cetirizine (ZYRTEC) 10 mg tablet Take 10 mg by mouth once daily. - fluticasone propionate (FLONASE NASAL) Use in the nose. Problem List As Of Date 10/23/2024 Noted Resolved Mixed hyperlipidemia [E78.2] 03/01/2024 EVER on CPAP [G47.33] 03/01/2024 Essential hypertension [I10] 03/01/2024 Nightmares associated with chronic post-traumat*03/01/2024 Depressive disorder [F32.A] 03/01/2024 PTSD (post-traumatic stress disorder) [F43.10] 03/01/2024 Routine physical examination [Z00.00] 03/01/2024 Prescriptions ordered this encounter Disp Refills Start End AZITHROMYCIN 250 MG TABLET 6 ta* 1 10/23/2024 10/28/2024 Sig: Take 2 tablets day one, then, 1 tablet daily until gone. Medications Discontinued During This Encounter Prescriptions - azithromycin (ZITHROMAX Z-ZEYAD) 250 mg tablet (Discontinued) Take 2 tablets day one, then, 1 tablet daily until gone. Encounter Status:Closed by BETI CALVILLO on 12/08/24 [facility] 10-19-2024 [facility] Telephone (JOHNWS) SALAZAR MELLO ([id number]) 1975 M [facility] Date Time Provider Department 10/19/24 DARIN HOGAN During your visit today, we recorded the following information about you: Darin Hogan MD 10/19/2024 8:27 AM Signed Please call, he does not use his my chart. He was positive for influenza a. Chest xray was negative. Stay home and away from others until no fever and feeling better. Antibiotics will not help. He is too late to start antivirals. Call if any worsening symptoms. Heavenly Cancino MA 10/19/2024 9:01 AM Signed Patient informed. Heavenly Cancino MA Allergies As of Date: 10/19/2024 (No Known Allergies) Date Reviewed: 10/18/2024 Reviewed by: Heavenly Cancino MA - Fully Assessed Reason for Visit: Results [95] Cmt: Positive influenza Prescriptions as of 10/19/2024 - albuterol HFA (PROVENTIL HFA, VENTOLIN HFA) 90 mcg/actuation inhaler Inhale 2 Puffs as instructed every 6 hours as needed for wheezing/shortness of breath. - methylPREDNISolone (MEDROL, ZEYAD,) 4 mg Dose-Pack Take as instructed per package. - benzonatate (TESSALON PERLE) 100 mg capsule Take 1 capsule by mouth three times a day as needed for cough for up to 7 days. - rosuvastatin (CRESTOR) 20 mg tablet Take 1 tablet by mouth daily at bedtime. - aspirin 81 mg chewable tablet Take 1 tablet by mouth once daily. - ezetimibe (ZETIA) 10 mg tablet Take 10 mg by mouth once daily. - celecoxib (CELEBREX) 100 mg capsule Take 100 mg by mouth once daily. - citalopram (CELEXA) 20 mg tablet Take by mouth once daily. - omeprazole (PRILOSEC) 20 mg capsule Take 20 mg by mouth once daily. - amLODIPine-benazepril (LOTREL) 5-20 mg per capsule Take 1 capsule by mouth once daily. - tamsulosin (FLOMAX) 0.4 mg Take 0.4 mg by mouth once daily. - prazosin (MINIPRESS) 1 mg cap Take 1 mg by mouth twice daily. - cetirizine (ZYRTEC) 10 mg tablet Take 10 mg by mouth once daily. - fluticasone propionate (FLONASE NASAL) Use in the nose. Problem List As Of Date 10/19/2024 Noted Resolved Mixed hyperlipidemia [E78.2] 03/01/2024 EVER on CPAP [G47.33] 03/01/2024 Essential hypertension [I10] 03/01/2024 Nightmares associated with chronic post-traumat*03/01/2024 Depressive disorder [F32.A] 03/01/2024 PTSD (post-traumatic stress disorder) [F43.10] 03/01/2024 Routine physical examination [Z00.00] 03/01/2024 Encounter Status:Closed by HEAVENLY CANCINO on 10/19/24 [facility]OVon 10-18-2024 CNOV Office Visit (FAMPWS ) SALAZAR MELLO ([id number]) 1975 [facility] Date Time Provider Department 10/18/24 4:20 PM [facility] During your visit today, we recorded the following information about you: Temperature Pulse Blood pressure Weight 98.4 degrees 71/minute 113/75 113.4 kg Height 1.778 m Darin Hogan MD 10/18/2024 4:34 PM Signed Patient presents with: Cough HPI: Patient presents today for office visit for acute illness. DURATION OF SYMPTOMS: Began 5 days ago ONSET OF SYMPTOMS: Sudden FEVER: I felt like I had one. [place] chilled. Did not check. BODYACHES: Mild TIREDNESS: Severe HEADACHE: Mild EAR SYMPTOMS: right ear pain and feels blocked. STUFFY NOSE: Yes POST NASAL DRIP: Yes SNEEZING: Yes SORE THROAT: Yes - mild COUGH: Yes, with sputum production CHEST DISCOMFORT: Hurts when I cough SHORTNESS OF BREATH: Can't take deep breath. Causes coughing spasms. WHEEZING: Yes - but no history of asthma SPUTUM PRODUCTION: Green No nausea or vomiting or diarrhea. Using dayquil and nyquil. MEDICATIONS: Current Outpatient Medications Medication Sig rosuvastatin (CRESTOR) 20 mg tablet Take 1 tablet by mouth daily at bedtime. aspirin 81 mg chewable tablet Take 1 tablet by mouth once daily. ezetimibe (ZETIA) 10 mg tablet Take 10 mg by mouth once daily. celecoxib (CELEBREX) 100 mg capsule Take 100 mg by mouth once daily. citalopram (CELEXA) 20 mg tablet Take by mouth once daily. omeprazole (PRILOSEC) 20 mg capsule Take 20 mg by mouth once daily. amLODIPine-benazepril (LOTREL) 5-20 mg per capsule Take 1 capsule by mouth once daily. tamsulosin (FLOMAX) 0.4 mg Take 0.4 mg by mouth once daily. prazosin (MINIPRESS) 1 mg cap Take 1 mg by mouth twice daily. cetirizine (ZYRTEC) 10 mg tablet Take 10 mg by mouth once daily. fluticasone propionate (FLONASE NASAL) Use in the nose. No current facility-administered medications for this visit. ALLERGIES: ALLERGIES No Known Allergies PAST MEDICAL HISTORY Diagnosis Date Depressive disorder Essential hypertension Mixed hyperlipidemia Nightmares associated with chronic post-traumatic stress disorder EVER on CPAP PTSD (post-traumatic stress disorder) PAST SURGICAL HISTORY Procedure Laterality Date APPENDECTOMY 1981 PAST SURGICAL HISTORY OF 05/04/2021 back L5 S1 PAST SURGICAL HISTORY OF Left 2010 Left arm Ulnar shortening PAST SURGICAL HISTORY OF Left 1992 left shoulder Rotater cuff TONSILLECTOMY AND ADENOIDECTOMY FAMILY HISTORY Problem Relation Age of Onset Hypertension Mother Hyperlipidemia Mother Hypertension Father Hyperlipidemia Father Heart Attack Father 66 Heart Maternal Grandmother Stroke Paternal Grandmother Heart Attack Paternal Grandfather Social History Tobacco Use Smoking status: Former Types: Cigarettes Reviewed current medications, allergies, past medical history, surgical history, family history and social history today. REVIEW OF SYSTEMS All other reviewed and negative other than HPI. VITALS: BP 113/75 Pulse 71 Temp 36.9 ?C (98.4 ?F) Ht 177.8 cm (5' 10) Wt 113.4 kg (250 lb) BMI 35.87 kg/m? Last 4 Encounter Wt Readings: Date: Wt: 10/18/2024 113.4 kg (250 lb) 03/01/2024 110.7 kg (244 lb) 09/03/2022 11.2 kg (24 lb 12.8 oz) PHYSICAL EXAMINATION: General appearance: Well appearing, alert, in no acute distress, well-hydrated, well nourished. Skin: Skin color, texture, turgor normal, no suspicious rashes or lesions Head: Normocephalic, no masses, lesions, tenderness or abnormalities Eyes: Anicteric sclera. Pupils are equally round and reactive to light. Extraocular movements are intact. Ears: External ears normal, canals clear Nose/Sinuses: Nares normal, septum midline, mucosa normal, no drainage or sinus tenderness Oropharynx: Lips, mucosa, and tongue normal, teeth and gums normal, oropharynx normal Neck: Negative findings: no adenopathy Lungs: moving air well. Scattered end exp wheezing. Heart: RRR without murmur, gallop, or rubs. No ectopy Abdomen: Normal abdominal exam, Abdomen soft, non-tender. Bowel sounds normal. No masses, organomegaly Extremities: No deformities, edema, ASSESSMENT/PLAN: 1. Wheezing - ICD9: 786.07, ICD10: R06.2 (primary diagnosis) - Discussed risks and benefits of new medication with the patient. Advised them to call if any side effects or questions. Red flags for re-assessment reviewed with patient in detail. Call if symptoms worsen at all or if not better in 5 to 7 days. Can consider antibiotic if not improveing. Reviewed diagnosis and treatment options in detail. Questions were answered. Patient expressed understanding of treatment plan. - ALBUTEROL SULFATE HFA 90 MCG/ACTUATION AEROSOL INHALER - METHYLPREDNISOLONE 4 MG TABLETS IN A DOSE PACK - BENZONATATE 100 MG CAPSULE 2. Mixed hyperlipidemia - ICD9: 272.2, I (more content not included)... Normal [facility] COVID AND INFLUENZA A/B AND RSV PCR, ROUTINEon 10-18-2024 SARS-CoV-2 (COVID-19) RNA CAITLIN+probe Ql (Unsp spec) SARS-COV-2 (AGENT OF COVID-19) RNA: Not detected INFLUENZA A RNA: Detected INFLUENZA B RNA: Not detected RESPIRATORY SYNCYTIAL VIRUS (RSV) RNA: Not detected Abnormal [facility] Comment on above: Performed By: #### C VFLRS ####[facility] [id number] [place] [address] [place] XR CHEST 2V FRONTAL/LATon XR CHEST 2V FRONTAL/LAT * * *Final Report* * * DATE OF EXAM: Oct 18 2024 4:51PM WOX [id number] - XR CHEST 2V FRONTAL/LAT / PROCEDURE REASON: multiple diagnoses * * * * Physician Interpretation * * * * EXAMINATION: CHEST RADIOGRAPH (2 VIEW FRONTAL and LATERAL) CLINICAL HISTORY: Acute cough URI, acute MQ: XC2_6 EXAM DATE/TIME: 10/18/2024 4:51 PM COMPARISON: No relevant prior studies available. RESULT: Lines, tubes, and devices: None. Lungs and pleura: No consolidation. No lung mass. No pleural effusion. No pneumothorax. Cardiomediastinal silhouette: Normal cardiomediastinal silhouette. Bones and soft tissues: Unremarkable. IMPRESSION: No acute radiographic abnormality. Braille Proofreader: [employer] Transcribe Date/Time: Oct 18 2024 4:53P Dictated by : GOGO MONTEZ MD This examination was interpreted and the report reviewed and electronically signed by: GOGO MONTEZ MD on Oct 18 2024 4:53PM EST [id number] Normal [facility] XR Chest PA and Lateralon IMPRESSION: No acute radiographic abnormality. Braille Proofreader: [employer] Transcribe Date/Time: Oct 18 2024 4:53P Dictated by : GOGO MONTEZ MD This examination was interpreted and the report reviewed and electronically signed by: GOGO MONTEZ MD on Oct 18 2024 4:53PM EST DIVISION OF RADIOLOGY * * *Final Report* * * DATE OF EXAM: Oct 18 2024 4:51PM WOX [id number] - XR CHEST 2V FRONTAL/LAT / PROCEDURE REASON: multiple diagnoses * * * * Physician Interpretation * * * * EXAMINATION: CHEST RADIOGRAPH (2 VIEW FRONTAL & LATERAL) CLINICAL HISTORY: Acute cough URI, acute MQ: XC2_6 EXAM DATE/TIME: 10/18/2024 4:51 PM COMPARISON: No relevant prior studies available. RESULT: Lines, tubes, and devices: None. Lungs and pleura: No consolidation. No lung mass. No pleural effusion. No pneumothorax. Cardiomediastinal silhouette: Normal cardiomediastinal silhouette. Bones and soft tissues: Unremarkable. DIVISION OF RADIOLOGY Provider, [facility] - 10/18/2024 * * *Final Report* * * DATE OF EXAM: Oct 18 2024 4:51PM WOX [id number] - XR CHEST 2V FRONTAL/LAT / PROCEDURE REASON: multiple diagnoses * * * * Physician Interpretation * * * * EXAMINATION: CHEST RADIOGRAPH (2 VIEW FRONTAL & LATERAL) CLINICAL HISTORY: Acute cough URI, acute MQ: XC2_6 EXAM DATE/TIME: 10/18/2024 4:51 PM COMPARISON: No relevant prior studies available. RESULT: Lines, tubes, and devices: None. Lungs and pleura: No consolidation. No lung mass. No pleural effusion. No pneumothorax. Cardiomediastinal silhouette: Normal cardiomediastinal silhouette. Bones and soft tissues: Unremarkable. IMPRESSION IMPRESSION: No acute radiographic abnormality. Braille Proofreader: [employer] Transcribe Date/Time: Oct 18 2024 4:53P Dictated by : GOGO MONTEZ MD This examination was interpreted and the report reviewed and electronically signed by: GOGO MONTEZ MD on Oct 18 2024 4:53PM EST [facility] Radiology Study observation (narrative) [facility] XR Chest PA and LateralOrder ed By: [facility] Provider on 10-18-2024 [facility] Abdomen Limitedon 09-01-2024 Abdomen Limited [facility] Imaging Services [address] [place] [id number] Abdomen Limited MR#: [id number] Acct: [id number] Name: SALAZAR MELLO Rep #: [id number] : 1975 M 48 From: Jordyn allen MD PCP: [facility] Status: REG CLI Study: Abdomen Limited Date of Exam: 09/01/24 Exam# [id number] Ordering Dr: Ines Steiner GUT DROPPER- C :[id number] HISTORY: RUQ PAIN. TECHNIQUE: Cervantes scale and color doppler imaging was performed of the right upper quadrant. 86 images. COMPARISON: None. FINDINGS: LIVER: 17.4 cm in length. Increased echogenicity without focal lesion demonstrated. No intrahepatic ductal dilatation. MAIN PORTAL VEIN: Patent with flow in the appropriate direction. COMMON BILE DUCT: 4 mm in diameter. GALLBLADDER: No gallstones. 2 mm wall thickness. No pericholecystic fluid. Sonographic Zheng sign negative. PANCREAS: Not well visualized due to overlying bowel gas. RIGHT KIDNEY: 12 cm in length with a cortical thickness of 1.3 cm. No hydronephrosis or gross renal mass demonstrated. US/Abdomen Limited IMPRESSION: No sonographic evidence of cholelithiasis. Hepatic steatosis with mild hepatomegaly. Electronically Signed: Jordyn Dunne MD at 15:43 EST , CC: RUY Steiner; [facility] Braille Proofreader: Signed [facility] Vital Signs Date Time Vital Sign Value Performing Clinician Isabell suarez 05-16-2025 16:53-0400 Body height 179 cm [employer] Work Phone: [facility] 05-16-2025 16:53-0400 Body mass index (BMI) [Ratio] 34.54 kg/m2 Luc Olivier DO Work Phone: [facility] 05-16-2025 16:53-0400 Body temperature 97 [degF] Luc Olivier DO Work Phone: [facility] 05-16-2025 16:53-0400 Body weight 110.68 kg Luc Olivier DO Work Phone: [facility] 05-16-2025 16:53-0400 Diastolic blood pressure 82 mm[Hg] Luc Olivier DO Work Phone: [facility] 05-16-2025 16:53-0400 Heart rate 68 /min Luc Olivier DO Work Phone: [facility] 05-16-2025 16:53-0400 Respiratory rate 16 /min Luc Olivier DO Work Phone: [facility] 05-16-2025 16:53-0400 Systolic blood pressure 130 mm[Hg] Luc Olivier DO Work Phone: [facility] 11-14-2024 15:44-0500 Body mass index (BMI) [Ratio] 34.44 kg/m2 Nhi Suppan RATE SETTER.GALLERY MANAGER Work Phone: [facility] 11-14-2024 15:44-0500 Body temperature 97.9 [degF] Nhi Suppan RATE SETTER.GALLERY MANAGER Work Phone: [facility] 11-14-2024 15:44-0500 Body weight 108.86 kg Nhi Suppan RATE SETTER.GALLERY MANAGER Work Phone: [facility] 11-14-2024 15:44-0500 Diastolic blood pressure 80 mm[Hg] Nhi Suppan RATE SETTER.GALLERY MANAGER Work Phone: [facility] 11-14-2024 15:44-0500 Heart rate 74 /min Nhi Suppan RATE SETTER.GALLERY MANAGER Work Phone: [facility] 11-14-2024 15:44-0500 SaO2% (BldA) [Mass fraction] 97 % Nhi Suppan RATE SETTER.GALLERY MANAGER Work Phone: [facility] 11-14-2024 15:44-0500 Systolic blood pressure 132 mm[Hg] Nhi Suppan RATE SETTER.GALLERY MANAGER Work Phone: [facility] 10-18-2024 16:08-0500 Body height 177.8 cm Darin Hogan MD Work Phone: [facility] 10-18-2024 16:08-0500 Body mass index (BMI) [Ratio] 35.87 kg/m2 Darin Hogan MD Work Phone: [facility] 10-18-2024 16:08-0500 Body temperature 98.4 [degF] Darin Hogan MD Work Phone: [facility] 10-18-2024 16:08-0500 Body weight 113.4 kg Darin Hogan MD Work Phone: [facility] 10-18-2024 16:08-0500 Diastolic blood pressure 75 mm[Hg] Darin Hogan MD Work Phone: [facility] 01-29-2025 16:08-0500 Heart rate 71 /min Darin Hogan MD Work Phone: [facility] 10-18-2024 16:08-0500 Systolic blood pressure 113 mm[Hg] Darin Hogan MD Work Phone: [facility] 03-01-2024 16:49-0400 Body height 179 cm Luc Olivier DO Work Phone: [facility] 03-01-2024 16:49-0400 Body mass index (BMI) [Ratio] 34.54 kg/m2 Luc Olivier DO Work Phone: [facility] 03-01-2024 16:49-0400 Body temperature 98.01 [degF] Luc Olivier DO Work Phone: [facility] 03-01-2024 16:49-0400 Body weight 110.68 kg Luc Olivier DO Work Phone: [facility] 03-01-2024 16:49-0400 Diastolic blood pressure 80 mm[Hg] Luc Olivier DO Work Phone: [facility] 03-01-2024 16:49-0400 Heart rate 76 /min Luc Olivier DO Work Phone: [facility] 03-01-2024 16:49-0400 Respiratory rate 16 /min Luc Olivier DO Work Phone: [facility] 03-01-2024 16:49-0400 Systolic blood pressure 120 mm[Hg] Luc Olivier DO Work Phone: [facility] Encounters Encounter Date Encounter Type Care Provider Facility Start: 07-02-2025 End: 07-02-2025 ambulatory LOC FORRESTER Facility:[facility] Start: 06-25-2025 End: 06-25-2025 ambulatory LOC FORRESTER Facility:[facility] Start: 06-22-2025 End: 06-22-2025 ambulatory JAVIER AHUMADA V Facility:[facility] Start: 06-18-2025 End: 06-18-2025 ambulatory LUC OLIVIER Facility:[facility] Start: 06-11-2025 End: 06-11-2025 ambulatory LOC PRICHARD Facility:[facility] Start: 06-01-2025 End: 06-01-2025 Patient encounter procedure Javier Ahumada DO Work Phone: [facility] Comment on above: Chronic pain of both knees (Primary Dx); Primary osteoarthritis of both knees; Personal history of service Start: 06-01-2025 End: 06-01-2025 ambulatory LUC OLIVIER Facility:[facility] Start: 06-01-2025 End: 06-01-2025 Subsequent hospital visit by physician Fabian [facility] Margie Mob Work Phone: Radiology Comment on above: Osteoarthritis of sp ine with radiculopathy, cervical region [M47.22] Pain in both knees, unspecified chronicity [M25.561, M25.562] Start: 05-22-2025 End: 05-22-2025 Orders Only Javier Ahumada DO Work Phone: Orthopaedics Comment on above: Pain in both knees, unspecified chronicity (Primary Dx) Start: 05-16-2025 Encounter for laura aquino adult medical examination without abnormal findings LUC OLIVIER [facility] Start: 05-16-2025 End: 05-16-2025 Patient encounter procedure Luc Chery Familia RUBI Work Phone: Family [facility] Comment on above: Well adult exam (Yamilex melida Dx); Mixed hyperlipidemia; Essential hypertension; EVER on CPAP; Routine physical examination; Osteoarthritis of spine with radiculopathy, cervical region; Arm paresthesia, left; Chronic pain of both knees; Acute pain of left shoulder; Acute bursitis of left shoulder Start: 05-16-2025 End: 05-16-2025 Physical examination Luc Olivier DO Work Phone: [facility] Start: 05-16-2025 End: 05-16-2025 ambulatory LUC OLIVIER Facility:[facility] Start: 05-16-2025 End: 05-16-2025 Patient encounter status Luc Toroon DO Work Phone: [facility] Start: 12-25-2024 End: 12-25-2024 ambulatory [facility] Facility:[facility] Start: 11-16-2024 End: 11-16-2024 Follow-up encounter Nhi Becerril RATE SETTER.GALLERY MANAGER Work Phone: [facility] Start: 11-14-2024 End: 11-14-2024 Office outpatient visit 15 minutes Nhi Becerril RATE SETTER.GALLERY MANAGER Work Phone: [facility] Comment on above: Left epididymitis (P rimary Dx) Start: 11-14-2024 End: 11-14-2024 ambulatory LUC OLIVIER Facility:[facility] Start: 10-23-2024 End: 12-08-2024 Telephone encounter Luc Olivier DO Work Phone: [facility] Start: 10-19-2024 End: 10-19-2024 Telephone encounter Darin Hogan MD Work Phone: [facility] Comment on above: Results (Positive in fluenza) Start: 10-18-2024 End: 10-18-2024 Subsequent hospital visit by physician Xr [facility] Margie Work Phone: Radiology Comment on above: Acute cough [R05.1] Start: 10-18-2024 End: 10-18-2024 Patient encounter procedure Darin Hogan MD Work Phone: [facility] Comment on above: Wheezing (Primary Dx ); Mixed hyperlipidemia; Essential hypertension; Acute cough; URI, acute Start: 10-18-2024 End: 10-18-2024 ambulatory [facility] Facility:[facility] Start: 09-01-2024 End: 09-01-2024 ambulatory [facility] Start: 03-01-2024 End: 03-01-2024 Patient encounter procedure Luc Olivier DO Work Phone: [facility] Comment on above: Routine physical exa mination (Primary Dx); Hyperlipidemia, mixed; EVER on CPAP; Essential hypertension; Nightmares associated with chronic post-traumatic stress disorder; Depressive disorder; PTSD (post-traumatic stress disorder); Mixed hyperlipidemia; Multiple atypical nevi Start: 03-01-2024 End: 03-01-2024 Physical examination Luc Olivier DO Work Phone: [facility] Start: 09-02-2022 Telephone encounter Luc jones DO Work Phone: [facility] Comment on above: Appointment Procedures Date Procedure Procedure Detail Performing Clinician Start: 03-19-2025 Lipid 1996 panel - S aubrie or Plasma Luc Olivier DO Work Phone: Start: 10-18-2024 Radiologic exam ches t 2 views Darin Hogan MD Work Phone: Start: 12-02-2021 Colonoscopy Luc chow DO Work Phone: Plan of Treatment Date Care Activity Detail Author Start: 03-19-2030 Lipid panel Lipid Screening [facility] Start: 05-16-2026 Annual PCP Team Education Supervisor kala Disease Visit Annual PCP Team Chronic Disease Visit [facility] Start: 11-14-2025 Annual PCP Team Education Supervisor kala Disease Visit Annual PCP Team Chronic Disease Visit [facility] Start: 10-18-2025 Annual PCP Team Education Supervisor kala Disease Visit Annual PCP Team Chronic Disease Visit [facility] Start: 10-18-2025 BP Controlled (<130/80) BP Controlle d (<130/80) [facility] Start: 06-11-2025 End: 06-11-2025 ambulatory 06/11/2025 9:00 AM EDT OT/PT/Speech Visit [facility] [address] [place] [address] Loc Forrester, BELLO henson [facility] Comment on above: Dr.Garrison huong henson Start: 06-01-2025 End: 06-01-2025 Patient encounter procedure 06/01/2025 2:30 PM EDT Office Visit Family [facility] [address] [place], [place] [id number] Javier Ahumada V, DO [address] [place] [address] New Patient Chronic pain of both knees [M25.561, M25.562, G89.29] [facility] Comment on above: New Patient Chronic pain of both knees [M25.561, M25.562, G89.29] Start: 05-21-2025 Influenza vaccination Influenza Vacc ine (#1) [facility] Start: 05-16-2025 End: 05-16-2025 Patient encounter procedure 05/16/2025 5:00 PM EDT Office Visit [facility] [place] [address] [place] [address] Luc Olivier DO [address] [facility] [place] [address] Physical [facility] [place] Comment on above: Physical Start: 05-16-2025 End: 08-15-2025 25-hydroxyvitamin D3 [Mass/volume] in Serum or Plasma VITAMIN D 25 HYDROXY Lab Routine Routine physical examination Expected: 05/16/2025, Expires: 08/15/2025 [facility] Comment on above: Expected: 05/16/2025 , Expires: 08/15/2025 Start: 05-16-2025 End: 08-15-2025 CBC W Auto Differential panel - Blood COMPLETE BLOOD COUNT AND DIFFERENTIAL Lab Routine Routine physical examination Expected: 05/16/2025, Expires: 08/15/2025 [facility] Work Phone: Comment on above: Expected: 05/16/2025 , Expires: 08/15/2025 Start: 05-16-2025 End: 08-15-2025 Cobalamin (Vitamin B12) [Mass/volume] in Serum or Plasma VITAMIN B12 Lab Routine Routine physical examination Expected: 05/16/2025, Expires: 08/15/2025 [facility] Comment on above: Expected: 05/16/2025 , Expires: 08/15/2025 Start: 05-16-2025 End: 08-15-2025 Hemoglobin A1c in Blood HEMOGLOBIN A1C Lab Routine Routine physical examination Expected: 05/16/2025, Expires: 08/15/2025 [facility] Comment on above: Expected: 05/16/2025 , Expires: 08/15/2025 Start: 05-16-2025 End: 08-15-2025 PSA/PROSTATE SPECIFIC ANTIGEN SCREENING PSA/PROSTATE SPECIFIC ANTIGEN SCREENING Lab Routine Routine physical examination Expected: 05/16/2025, Expires: 08/15/2025 [facility] Comment on above: Expected: 05/16/2025 , Expires: 08/15/2025 Start: 05-16-2025 End: 08-15-2025 Thyrotropin [Units/volume] in Serum or Plasma THYROID STIMULATING HORMONE Lab Routine Routine physical examination Expected: 05/16/2025, Expires: 08/15/2025 [facility] Comment on above: Expected: 05/16/2025 , Expires: 08/15/2025 Start: 05-16-2025 End: 08-15-2025 Thyroxine (T4) free [Mass/volume] in Serum or Plasma T4 FREE/FREE THYROXINE Lab Routine Routine physical examination Expected: 05/16/2025, Expires: 08/15/2025 [facility] Comment on above: Expected: 05/16/2025 , Expires: 08/15/2025 Start: 03-01-2025 Annual PCP Team Education Supervisor kala Disease Visit Annual PCP Team Chronic Disease Visit [facility] Start: 2024 Pneumococcal Vaccine : 50+ (1 of 1 - PCV) Pneumococcal Vaccine: 50+ (1 of 1 - PCV) [facility] Start: 2024 Shingrix Vaccine (1 of 2) Shingrix Vaccine (1 of 2) [facility] Start: 05-21-2024 Covid-19 Vaccine ( season) Covid-19 Vaccine ( season) [facility] Start: 05-21-2024 Influenza vaccination C [facility] Start: 09-03-2023 COVID-19 VACCINE (#1) COVID-19 VACCI NE (#1) [facility] Comment on above: Postponed from 04/05 (Declined at this time) Start: 05-21-2023 Covid-19 Vaccine ( season) Covid-19 Vaccine ( season) [facility] Start: 03-19-2023 Influenza vaccination INFLUENZA (#1) [facility] Comment on above: Postponed from 05/21 (Declined at this time) Start: 12-02-2022 Screening for malign ant neoplasm of colon [facility] Start: 09-20-2022 DEPRESSION ASSESSMENT DEPRESSION ASS ESSMENT [facility] Start: 2019 COLOGUARD (FIT-DNA) COLOGUARD (FIT-D NA) [facility] Start: 2019 Colonoscopy COLONOSCOPY [facility] Start: 2019 COLORECTAL CANCER SCREENING COLORECTAL CANCER SCREENING [facility] Start: [address] COLONOGRAPHY [facility] Start: 2019 DIABETES SCREEN [facility] Start: 2019 Diabetes Screening Diabetes Screenin g [facility] Start: 2019 FECAL OCCULT BLOOD FECAL OCCULT BLOO D [facility] Start: 2019 Screening for malign ant neoplasm of colon [facility] Start: 2019 SIGMOIDOSCOPY SIGMOIDOSCOPY [facility] Start: 2009 Lipid panel Lipid Screening [facility] Start: 2009 LIPID SCREEN LIPID SCREEN [facility] Start: 1993 Hepatitis B Vaccine (1 of 3 - 19+ 3-dose series) Hepatitis B Vaccine (1 of 3 - 19+ 3-dose series) [facility] Start: 1993 Urine microalbumin profile [facility] Start: 1992 BP Controlled (<130/80) BP Controlle d (<130/80) [facility] Start: 1992 HEPATITIS C SCREENING HEPATITIS C [facility] Start: 1992 Hepatitis C screening Hepatitis C [facility] Start: 1992 HIV SCREENING HIV SCREENING [facility] Start: 1992 HIV screening HIV Screening [facility] Start: 1974 HEPATITIS B (1 of 3 - 3-dose series) HEPATITIS B (1 of 3 - 3-dose series) [facility] COVID & INFLUENZA A/ B & RSV PCR, ROUTINE COVID & INFLUENZA A/B & RSV PCR, ROUTINE Microbiology Routine Acute cough URI, acute Ordered: 10/18/2024 [facility] Work Phone: Comment on above: Ordered: 10/18/2024 Urinalysis complete panel - Urine URINALYSIS, WITH MICROSCOPIC Lab Routine Left epididymitis 11/14/2024 4:11 PM EST [facility] Work Phone: End: 06-15-2026 XR Cervical spine AP and Lateral and oblique XR CERV OTHER 4V AP/LAT/OBL Radiology Routine Osteoarthritis of spine with radiculopathy, cervical region Arm paresthesia, left 1 Occurrences starting 05/16/2025 until 06/15/2026 [facility] Comment on above: 1 Occurrences starti ng 05/16/2025 until 06/15/2026 XR Cervical spine AP and Lateral and oblique XR CERV OTHER 4V AP/LAT/OBL Radiology Routine Osteoarthritis of spine with radiculopathy, cervical region Arm paresthesia, left 06/01/2025 2:17 PM EDT [facility] Work Phone: End: 06-21-2026 XR Knee - bilateral 4 Views XR KNEE GENERAL 4V AP BOTH/PA BOTH/LAT/MERC BILATERAL Radiology Routine Pain in both knees, unspecified chronicity 1 Occurrences starting 05/22/2025 until 06/21/2026 [facility] Work Phone: Comment on above: 1 Occurrences starti ng 05/22/2025 until 06/21/2026 XR Knee - bilateral 4 Views XR KNEE GENERAL 4V AP BOTH/PA BOTH/LAT/MERC BILATERAL Radiology Routine Pain in both knees, unspecified chronicity 06/01/2025 2:16 PM EDT [facility] Work Phone: Payers Date Payer Category Payer Government (not [facility] care or Medicaid) [id number] 2024 [employer] ( and others) [id number] 2024 Self-pay 2024 Unknown [id number] 2021 Unknown [id number] Unknown [id number] Unknown [id number] Social History Date Type Detail Facility [facility] Start: 1975 Sex Assigned At Not on file C [facility] Start: 02-27-2024 End: 05-16-2025 History of Social function [facility] Start: 02-27-2024 End: 05-16-2025 [facility] Utilities [facility] Has the [employer], [employer], or water company threatened to shut off services in your home in past 12Mo No [facility] Are you now , , , , never or living with a partner? [facility] How often to you hav e a drink containing alcohol? 2-3 time sa week [facility] How many standard dr inks containing alcohol do you have on a typical day? 1 or 2 [facility] How often do you hav e 6 or more drinks on 1 occasion? Less than monthly [facility] Start: 08-21-2012 How hard is it for y ou to pay for the very basics like food, housing, medical care, and heating Not hard at all [facility] Do you feel stress - tense, restless, nervous, or anxious, or unable to sleep at night because your mind is troubled all the time - these days [OSQ] Only a little [facility] (I/We) worried maite er (my/our) food would run out before (I/we) got money to buy more. Never true [facility] Start: 10-18-2024 End: 06-01-2025 Tobacco smoking status NHIS Ex-smoker [facility] History of tobacco use Current smoker [facility] History of tobacco use Cigarette Smoker C [facility] How often to you hav e a drink containing alcohol? 2-4 times a month [facility] How many standard dr inks containing alcohol do you have on a typical day? 3 or 4 [facility] Start: 06-01-2025 Tobacco use and exposure Smoke less tobacco non-user [facility] Functional Status Date Assessment Result Facility 05-16-2025 Total score [AUDIT-C] 4 05/16/20 11:07 AM EDT Joni Lee [facility] 05-16-2025 How often to you hav e a drink containing alcohol? 2-4 times a month 05/16/2025 11:07 AM EDT Joni Lee 2-4 times a month [facility] 05-16-[address] inks containing alcohol do you have on a typical day? 3 or 4 05/16/2025 11:07 AM EDT User, Pinohart 3 or 4 [facility] 05-16-2025 How often do you hav e 6 or more drinks on 1 occasion? Less than monthly 05/16/2025 11:07 AM EDT User, Mychart Less than monthly [facility] Clinical Notes 09-02-2022 to 07-02-2025 Javier Ahumada V, DO - 06/01/2025 2:34 PM EDTRaMargaret corbin, MA - 06/01/2025 2:15 PM Beverly Casanova RT(R) - 06/01/2025 2:00 PM Luc Painter, DO - 05/16/2025 5:09 PM EDT Note Date & Type Note Facility 07-02-2025 Note HNO ID: [id number] Author: LOC FORRESTER, PT Service: ? Author Type: Physical Therapist Type: Progress Notes Filed: 07/02/2025 09:32 Note Text: Episode Visit Count: 4 Therapist That Will Accept/Oversee The Plan Of Care: Loc Forrester Start of Care Date: 06/11/25 Onset Date: 04/10/25 REHABILITATION AND SPORTS THERAPY PHYSICAL THERAPY TREATMENT NOTE ASSESSMENT: Salazar Mello tolerated the session with decreased symptoms and expected muscle soreness. He demonstrated improvements in neck and back pain, and tolerance for ADLs. The patient will continue to benefit from ongoing skilled physical therapy to progress toward set goals and for reassessment by supervising therapist. PLAN FOR NEXT VISIT: [place] SUBJECTIVE: Patient's neck continues to do well. His back is better, some slight soreness lower R, and he had some cramping mid back when lying down on the couch this weekend Pain: Pain Pain Level: 4 Pain Location: Low Back/Lumbar Spine - Right Description: Sore Frequency: Intermittent OBJECTIVE MEASURES WITH LEVEL OF FUNCTION: Palpation to R L4-5 paraspinals reproduces LBP TREATMENT: Therapeutic Exercise: 1: *TA brace plus alt leg extensions 3x10/side (legs only bugs, discussed forceful exhale to make more challenging) 2: *PuTB pallof press 3x10/side 3: *Front planks 6x10 sec 4: *Side planks 3x20 sec/side Skilled Intervention: Patient was educated in proper exercise technique and purpose for exercises. Skilled judgment was used in selection of appropriate interventions. Provided written instruction for home exercise program to facilitate proper performance and compliance. Correct performance of therapeutic exercises was facilitated with verbal, visual, and tactile cuing. Manual Therapy: 1: STM to R lumbar paraspinals with push to tolerance while assessing for trigger points, tissue quality, and reproduction of symptoms Dry Needling: (1) 60 and 75 mm needle to R L 4-5 paraspinals with pistoning and fanning (2 needles in, 2 needles out. Patient notes symptoms resolved post session, appropriate needling soreness noted) Skilled Intervention: Manual skills to improve joint mobility, ROM, and decrease pain. Utilized anatomy knowledge of the clinician, and assessment of patient's response to intervention. Billing Therapeutic Exercise Treatment Minutes: 24 Manual TherapyTreatment Minutes: 15 Skilled Treatment Time Minutes (timed and untimed codes): 39 Total Session Time (minutes): 39 Session Start Time : 820 Session Stop Time : 899 Loc Forrester PT [facility] 06-25-2025 Note HNO ID: [id number] Author: LOC FORRESTER PT Service: ? Author Type: Physical Therapist Type: Progress Notes Filed: 06/25/2025 10:41 Note Text: Episode Visit Count: 3 Therapist That Will Accept/Oversee The Plan Of Care: Loc Forrester Start of Care Date: 06/11/25 Onset Date: 04/10/25 REHABILITATION AND SPORTS THERAPY PHYSICAL THERAPY TREATMENT NOTE ASSESSMENT: Salazar Mello tolerated the session with decreased symptoms. He demonstrated improvements in back and neck pain. The patient will continue to benefit from ongoing skilled physical therapy to progress toward set goals. PLAN FOR NEXT VISIT: Hip mobility, neutral spine strengthening, manual as needed for symptom modulation SUBJECTIVE: Patient's neck is doing much better. Comes in with no pain today. Notes that Pain: Pain Pain Level: 5 Pain Location: Low Back/Lumbar Spine- Midline, Thoracic Spine Description: Tightness, Sore Frequency: Continuous OBJECTIVE MEASURES WITH LEVEL OF FUNCTION: Spine Observations R Lumbar Spine Palpation Tenderness: Paraspinals L Lumbar Spine Palpation Tenderness: Paraspinals R Thoracic Spine Palpation Tenderness: Paraspinals L Thoracic Spine Palpation Tenderness: Paraspinals Lumbar Spine AROM Lumbar Flexion: Pain during movement Lumbar Extension: End range pain Lumbar R Side-Bend: End range pain Lumbar L Side-Bend: End range pain Lumbar R Rotation: Pain during movement Lumbar L Rotation: Pain during movement LE Strength Trunk Strength: 4-/5 R LE Strength: 5/5 L LE Strength: 5/5 TREATMENT: Therapeutic Exercise: 1: *TA bracing 3x10, 2-3 sec holds 2: *TA bracing plus alt toe taps 3x10/side 3: *GTB pallof press 3x10/side Skilled Intervention: Patient was educated in proper exercise technique and purpose for exercises. Skilled judgment was used in selection of appropriate interventions. Provided written instruction for home exercise program to facilitate proper performance and compliance. Correct performance of therapeutic exercises was facilitated with verbal, visual, and tactile cuing. Manual Therapy: Dry Needling: (1) 60 and 70 mm needle to B T10 and L5 paraspinals with placement of needles plus TENS as noted below (patient notes decreased pain post session. 8 needles in, 8 needles out) Skilled Intervention: Manual skills to improve joint mobility, ROM, and decrease pain. Utilized anatomy knowledge of the clinician, and assessment of patient's response to intervention. Modalities: E-Stim Attended/TENS Body Region Treated - E-Stim Attended/TENS: B thoracic and lumbar paraspinals T10 and L5 Patient Position: Prone Current: 10Hz IFC 4P Channels: 1-2, 3-4 Intensity: ch 1-2 3.5 V, ch 3 and 4 4.5 V Minutes: 10 Skilled Intervention: Proper administration and selection of modality based on clinical presentation, deficits, and needs. Patient response monitored throughout treatment. Billing Therapeutic Exercise Treatment Minutes: 15 Manual TherapyTreatment Minutes: 14 E- Stim Attended/TENS Treatment Minutes: 9 Skilled Treatment Time Minutes (timed and untimed codes): 39 Total Session Time (minutes): 39 Session Start Time : 0820 Session Stop Time : 0859 Loc Forrester PT [facility] 06-22-2025 Note HNO ID: [id number] Author: JAVIER AHUMADA, DO Service: ? Author Type: Physician Type: Progress Notes Filed: 06/22/2025 15:39 Note Text: Subjective Richard is a 49-year-old male presenting for Synvisc-One injections in both knees. Richard has a history of receiving Synvisc-One injections every 4 months for bilateral knee pain. He reports that the injections have been effective in managing his symptoms. He denies any significant soreness following previous injections. Objective There were no vitals taken for this visit. MSK/Ext: Bilateral knee exam shows no erythema, warmth, or tenderness to palpation; mild crepitus with range of motion of both knees; landmarks for injection clearly identified; Synvisc-One injected into each knee via anterolateral approach, tolerated well. Assessment AND Plan 1. Bilateral primary osteoarthritis of knee (M17.0) Bilateral knee osteoarthritis with mild crepitus on exam; no erythema, warmth, or tenderness. - Administered Synvisc-One injection to each knee via anterolateral approach; patient tolerated procedure well. - Advised patient to take it easy for the remainder of the day and to use ice as needed for post-injection soreness. - Discussed that injections can be repeated every 4 months if insurance authorization is obtained. Large Joint Arthro/Inj: bilateral knee joints 06/22/2025 3:39 PM The procedure site was prepped in the usual sterile fashion. Site: bilateral knee joints Medications (Right): 48 mg hylan G-F 20 48 mg/6 mL Medications (Left): 48 mg hylan G-F 20 48 mg/6 mL Anesthetics (Right): 2 mL lidocaine (PF) 10 mg/mL (1 %) Anesthetics (Left): 2 mL lidocaine (PF) 10 mg/mL (1 %) Outcome: Tolerated well, no immediate complications Post-injection instructions were reviewed with the patient and the patient voiced understanding of these instructions. Informed Consent Consent Obtained: Verbal [place] Protocol SIGN IN TIME OUT Recording using [employer] software for draft documentation of the visit was discussed with the patient/authorized front desk representative; all questions welcomed and answered. Patient/authorized front desk representative agreed to proceed [facility] 06-22-2025 Note HNO ID: [id number] Author: MARGARET TRUJILLO MA Service: ? Author Type: Finish Saw Operator Type: Progress Notes Filed: 06/22/2025 15:39 Note Text: AMB ROOMING INTAKE FLOWSHEET DATA Pain Pain Level: 6 Pain Location: (bilateral knees) Description: Dull, Shooting Duration Amount of Time: (ongoing) Frequency: Intermittent Intervention/Comfort measure: Other: See comment (none) Synvisc One injection into bilateral knees Left knee LOT # [id number] EXP 11/18/2027 Right knee LOT # [id number] EXP 11/18/2027 Margaret Trujillo MA [facility] 06-18-2025 Note HNO ID: [id number] Author: LOC FORRESTER PT Service: ? Author Type: Physical Therapist Type: Progress Notes Filed: 06/18/2025 12:12 Note Text: Episode Visit Count: 2 Therapist That Will Accept/Oversee The Plan Of Care: Loc Forrester Start of Care Date: 06/11/25 Onset Date: 04/10/25 REHABILITATION AND SPORTS THERAPY PHYSICAL THERAPY TREATMENT NOTE ASSESSMENT: Salazar Mello tolerated the session with decreased symptoms. He demonstrated improvements in neck pain and LUE radicular symptoms. The patient will continue to benefit from ongoing skilled physical therapy to progress toward set goals. PLAN FOR NEXT VISIT: Progress exercises per tolerance (strengthening if able), manual as needed for symptom resolution SUBJECTIVE: Patient notes that the upper trap needling helped a lot, and that pain has stayed away since being seen. Notes that he had a tension NINA at the end of last week, pretty regular neck pain. Intermittent nerve symptoms down the LUE as well. Pain: Pain Pain Level: 4 Pain Location: Neck - Left Description: Aching, Sore, Tightness Frequency: Continuous OBJECTIVE MEASURES WITH LEVEL OF FUNCTION: Pain reproduced at C2-4 palpation TREATMENT: Therapeutic Exercise: 1: *Upper cervical overstretch 3x10, 3-5 sec holds (progression on neck elongation) 2: *C1 rotation mobs 3x10/side 3: Cervical SNAG with towel and active extension 3x10 in tolerable range Skilled Intervention: Patient was educated in proper exercise technique and purpose for exercises. Skilled judgment was used in selection of appropriate interventions. Provided written instruction for home exercise program to facilitate proper performance and compliance. Correct performance of therapeutic exercises was facilitated with verbal, visual, and tactile cuing. Manual Therapy: 1: STM to L cervical paraspinals and suboccipitals with push to tolerance 2: Manual cervical distraction x5 min Dry Needling: (1) 30 and 40 mm needles to C2 and C4 paraspinals with clock technique plus TENS noted below, adjusting intensity to patient's tolerance throughout (4 needles in, 4 needles out. patient notes resolution of symptoms post session) Skilled Intervention: Manual skills to improve joint mobility, ROM, and decrease pain. Utilized anatomy knowledge of the clinician, and assessment of patient's response to intervention. Modalities: E-Stim Attended/TENS Body Region Treated - E-Stim Attended/TENS: L cervical spine C2 and C4 paraspinals Patient Position: prone Current: IFC, 10 Hz Channels: 1 and 2 Intensity: 4.5-5.5 V Minutes: 10 Skilled Intervention: Proper administration and selection of modality based on clinical presentation, deficits, and needs. Patient response monitored throughout treatment. Billing Therapeutic Exercise Treatment Minutes: 10 Manual TherapyTreatment Minutes: 18 E- Stim Attended/TENS Treatment Minutes: 10 Skilled Treatment Time Minutes (timed and untimed codes): 38 Total Session Time (minutes): 38 Session Start Time : 817 Session Stop Time : 855 Loc Forrester PT [facility] 06-12-2025 Note HNO ID: [id number] Author: LOC FORRESTER PT Service: ? Author Type: Physical Therapist Type: Progress Notes Filed: 06/12/2025 14:54 Note Text: Episode Visit Count: 1 Therapist That Will Accept/Oversee The Plan Of Care: Loc Forrester Start of Care Date: 06/11/25 Onset Date: 04/10/25 Patient Identified by Name and Date of : Yes REHABILITATION AND SPORTS THERAPY PHYSICAL THERAPY EVALUATION PLAN OF CARE: Assessment: Salazar Mello presents with chief complaint of chronic neck pain that interferes with sleeping, reaching overhead, lifting . The patient presents with impairments in ADL's, overall function, range of motion, symptom management, and tissue tenderness. PROMIS? (Patient-Reported Outcomes Measurement Information System) scores were reviewed and identified as a rehabilitation concern. Prognosis for therapy is Good due to: current objective clinical presentation, positive past response to therapy, within-session changes, good support system/ coping skills . The patient will benefit from skilled therapy services to meet the goals established for this plan of care as noted below. Goals for Episode of Care: established 06/11/25 Independent in a Home Exercise Program. Patient will decrease pain rating by 2 points to meet minimal clinical important difference for numeric pain rating scale. Restore pain free cervical ROM to WNL to allow for decreased pain and improved functional mobility. Sleep throughout the night without pain/symptoms. Maintain proper sitting posture throughout the session to allow for decreased pain Patient will increase strength of LUE to 5/5 to allow for improve mechanics and decrease pain. Time Frame for Goals and Treatment : 08/12/25 Planned Interventions, Frequency, and Duration: Current Frequency: 1x/week Duration: 8 weeks Total Number of Visits Planned: 8 Planned Treatment Interventions: Therapeutic exercise (47599), Neuromuscular re-education (33065), Manual therapy (95508), Therapeutic activities (18024), Self-custodial management (59090), Patient/Family/Caregiver Education, Body Mechanics Training PLAN FOR NEXT VISIT: May needle pec minor, may also be candidate for needling plus TENS Patient demonstrates good understanding of plan of care and treatment. The above goals and plan of care were discussed and agreed upon by patient/family. SUBJECTIVE: L sided neck and shoulder pain for years with recent flare in the last 2 months. Notes that his neck, shoulder, and upper back are all tight, then numbness into the L hand (all fingers feel equally numb). Functional Limitations: sleeping, reaching overhead, lifting Prior Level of Function: Independent without limitations Intake Information: Prescription present Pain: Pain Pain Level: 6 Pain Location: Neck - Left Description: Aching, Sore, Tightness, Numbness Frequency: Continuous PROMIS Scales 06/11/2025 Higher is Better Phys Func - T Score 44 (mild dysfunction) Phys Func - Percentile 27 Self-Eff Symptom - T Score 44 (Average) Self-Eff Symptom - Percentile 27 T-Score and Percentile Interpretation T-scores: mean of general population = 50. 5 points is clinically meaningfully difference Percentiles provide an indication of how the patient's score ranks in relation to the general population. Higher percentile rankings indicate better function/quality of life. 50th percentile is the average of the general population and indicates half of respondents had a worse score. OBJECTIVE MEASURES WITH LEVEL OF FUNCTION: Spine Observations L Cervical Spine Palpation Tenderness: Upper trapezius, Paraspinals L Thoracic Spine Palpation Tenderness: (Pec minor) Cervical Spine ROM Cervical ROM : (minimal limitations in all directions) UE and Cervical Strength Strength Tested: Myotome Cervical/Shoulder R UE Strength: 5/5 L Shoulder Shrug (C4): 5/5 L Shoulder Abduction (C5): 5/5 L Elbow Extension (C7): 5/5 L Elbow Flexion (C6): 5/5 L Thumb Extension (C8): 4/5 L Finger Adduction/Interossei (T1): 4/5 Special Tests - Cervical Cervical Special Tests: Cervical Distraction, Spurling, Quadrant Cervical Distraction: Positive Quadrant: Left Positive Spurling: Left Positive Education: Education Learning Preferences: Demonstration, Explanation, Performance, Printed Materials Barriers: None Learning/educational needs: Home exercise program, Plan of Care, Changes in Plan of Care, Body Mechanics Education Provided: Yes, see treatment interventions for education provided Education Provided To: Patient Education Mode/Type: Demonstration, Explanation/Discussion, Literature/Printed Materials, Performance Response to Education/Teach Back: States/Identifies, Return Demonstration TREATMENT: PT Treatment Interventions: Therapeutic Exercise, Manual Therapy Evaluation Therapeutic Exercise: 1: *L pec stretch in doorway hand at shoulder height 3x30 sec 2: *Chin t (more content not included)... [facility] 06-01-2025 Note HNO ID: [id number] Author: JAVIER AHUMADA, DO Service: ? Author Type: Physician Type: Progress Notes Filed: 06/01/2025 14:36 Note Text: Subjective Richard Mello is a 49-year-old male, with a history of chronic bilateral knee pain, presenting for evaluation and management. Richard reports a 10+ year history of chronic bilateral knee pain, with the left knee being more symptomatic than the right. The pain is primarily located beneath the patella and is exacerbated by physical activity, leading to swelling. He denies erythema or increased warmth. 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 He denies any specific acute injuries, but recalls being informed of a partial meniscal tear in one knee, though he cannot recall which one. [facility], but his appointments have been canceled, prompting him to seek alternative care. He also manages his symptoms with Celebrex and topical Voltaren gel, which provide some relief. He has previously tried PRP and stem cell injections without significant benefit. He has modified his activities to avoid exacerbating his symptoms, including discontinuing running and focusing on upper body weightlifting. He occasionally walks, depending on his knee condition. He denies using knee braces or compression wraps and has not tried glucosamine or chondroitin sulfate supplements. Musculoskeletal: (+) bilateral knee pain left greater than right, (+) bilateral knee swelling Objective There were no vitals taken for this visit. General: No acute distress. MSK/Ext: Left knee swelling greater than right knee; bilateral patellar manipulation elicits discomfort; mild discomfort with palpation of bilateral knees. No laxity with ligament testing. Labs (No diagnostics in this category) Tests (No diagnostics in this category) Imaging (Today) Bilateral Knee X-ray: - Medial compartment narrowing noted (mild) - Patellofemoral narrowing - Mild patellar tilt on the left - No [id number] changes MRI of the knee (date not provided): Partial meniscal tear in one knee (side not specified) Assessment AND Plan 1. Chronic pain of both knees (M25.561) 2. Primary osteoarthritis of both knees (M17.0) Chronic bilateral knee pain and swelling, left greater than right, with history of service involving repetitive impact activities. X-rays show mild medial and patellofemoral compartment narrowing, more pronounced on the left, consistent with early osteoarthritic changes. - Continue current regimen of Celebrex and topical Voltaren gel. - Discussed prior Synvisc injections; will initiate prior authorization for viscosupplementation (e.g., Synvisc, Supartz, Durolane, Hyalgan, Gel-One) through [facility] [place]. - Discussed alternative options, including corticosteroid injections for acute flares. - Educated on the role of viscosupplementation in lubricating the joint and managing symptoms; reviewed that insurance typically approves every 6 months. - Discussed glucosamine and chondroitin sulfate supplements (e.g., Osteo Bi-Flex) as a non-NSAID adjunct; advised trial for 1 month to assess benefit. - Reviewed prior PRP and stem cell treatments; explained current evidence and insurance coverage limitations. - Advised continuation of activity modification to protect joints and maintain function. - Will contact patient once prior authorization is approved to schedule injections. 3. Personal history of service (Z91.85) Recording using [employer] software for draft documentation of the visit was discussed with the patient/authorized front desk representative; all questions welcomed and answered. Patient/authorized front desk representative agreed to proceed [facility] 06-01-2025 History of Present illness Narrative Subjective Richard Mello is a 49-year-old male, with a history of chronic bilateral knee pain, presenting for evaluation and management. Richard reports a 10+ year history of chronic bilateral knee pain, with the left knee being more symptomatic than the right. The pain is primarily located beneath the patella and is exacerbated by physical activity, leading to swelling. He denies erythema or increased warmth. 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 He denies any specific acute injuries, but recalls being informed of a partial meniscal tear in one knee, though he cannot recall which one. He has been [facility], but his appointments have been canceled, prompting him to seek alternative care. He also manages his symptoms with Celebrex and topical Voltaren gel, which provide some relief. He has previously tried PRP and stem cell injections without significant benefit. He has modified his activities to avoid exacerbating his symptoms, including discontinuing running and focusing on upper body weightlifting. He occasionally walks, depending on his knee condition. He denies using knee braces or compression wraps and has not tried glucosamine or chondroitin sulfate supplements. Musculoskeletal: (+) bilateral knee pain left greater than right, (+) bilateral knee swelling Objective There were no vitals taken for this visit. General: No acute distress. MSK/Ext: Left knee swelling greater than right knee; bilateral patellar manipulation elicits discomfort; mild discomfort with palpation of bilateral knees. No laxity with ligament testing. Labs (No diagnostics in this category) Tests (No diagnostics in this category) Imaging (Today) Bilateral Knee X-ray: - Medial compartment narrowing noted (mild) - Patellofemoral narrowing - Mild patellar tilt on the left - No gnwf-[id number] changes MRI of the knee (date not provided): Partial meniscal tear in one knee (side not specified) Assessment & Plan 1. Chronic pain of both knees (M25.561) 2. Primary osteoarthritis of both knees (M17.0) Chronic bilateral knee pain and swelling, left greater than right, with history of service involving repetitive impact activities. X-rays show mild medial and patellofemoral compartment narrowing, more pronounced on the left, consistent with early osteoarthritic changes. - Continue current regimen of Celebrex and topical Voltaren gel. - Discussed prior Synvisc injections; will initiate prior authorization for viscosupplementation (e.g., Synvisc, Supartz, Durolane, Hyalgan, Gel-One) through . - Discussed alternative options, including corticosteroid injections for acute flares. - Educated on the role of viscosupplementation in lubricating the joint and managing symptoms; reviewed that insurance typically approves every 6 months. - Discussed glucosamine and chondroitin sulfate supplements (e.g., Osteo Bi-Flex) as a non-NSAID adjunct; advised trial for 1 month to assess benefit. - Reviewed prior PRP and stem cell treatments; explained current evidence and insurance coverage limitations. - Advised continuation of activity modification to protect joints and maintain function. - Will contact patient once prior authorization is approved to schedule injections. 3. Personal history of service (Z91.85) Recording using [employer] software for draft documentation of the visit was discussed with the patient/authorized front desk representative; all questions welcomed and answered. Patient/authorized front desk representative agreed to proceed AMB ROOMING INTAKE FLOWSHEET DATA Pain Pain Level: 7 Pain Location: (bilateral knees) Description: Sharp (left knee gives out) Duration Amount of Time: 10 Duration Units: Years Frequency: Continuous Intervention/Comfort measure: Cold, Medication documented in this encounter [facility] 06-01-2025 Note HNO ID: [id number] Author: MARGARET TRUJILLO MA Service: ? Author Type: Finish Saw Operator Type: Progress Notes Filed: 06/01/2025 14:36 Note Text: AMB ROOMING INTAKE FLOWSHEET DATA Pain Pain Level: 7 Pain Location: (bilateral knees) Description: Sharp (left knee gives out) Duration Amount of Time: 10 Duration Units: Years Frequency: Continuous Intervention/Comfort measure: Cold, Medication [facility] 06-01-2025 History of Present illness Narrative Radiology Service Progress Note PATIENT NAME: Salazar Mello DATE OF SERVICE: June 01, 2025 TIME: 2:50 PM PATIENT IDENTITY VERIFICATION COMPLETED USING TWO (2) IDENTIFIERS: Name and Date of confirmed by patient verbally. FALL SCREENING: Has the patient had 2 falls in the last year or 1 fall with injury or currently using an Ambulatory Assistive Device (Walker, Cane, Wheelchair, Crutches, etc.)? No PATIENT GENDER DATA: Assigned male at PATIENT RELEVANT IMPLANT DATA REVIEWED: Not Applicable PATIENT PRESENTS WITH AN IMPLANTABLE OR ATTACHED MACHINIST GENERAL: No RADIOLOGY DEPARTMENT: General X-ray: Exam(s) Completed: Spine X-Ray(s): Cervical AP / LAT / OBL Lower Extremity X-Ray(s): Knee, AP / Lat / Tunne / Merchant Bilateral and Wt. Bearing PERIPHERAL IV DATA: Not applicable SIGNED BY: RT Wood(R) June 01, 2025 2:50 PM documented in this encounter [facility] 06-01-2025 Note HNO ID: [id number] Author: BEVERLY DONALDSON RT(R) Service: ? Author Type: Technologist Type: Progress Notes Filed: 06/01/2025 14:50 Note Text: Radiology Service Progress Note PATIENT NAME: Salazar Mello DATE OF SERVICE: June 01, 2025 TIME: 2:50 PM PATIENT IDENTITY VERIFICATION COMPLETED USING TWO (2) IDENTIFIERS: Name and Date of confirmed by patient verbally. FALL SCREENING: Has the patient had 2 falls in the last year or 1 fall with injury or currently using an Ambulatory Assistive Device (Walker, Cane, Wheelchair, Crutches, etc.)? No PATIENT GENDER DATA: Assigned male at PATIENT RELEVANT IMPLANT DATA REVIEWED: Not Applicable PATIENT PRESENTS WITH AN IMPLANTABLE OR ATTACHED MACHINIST GENERAL: No RADIOLOGY DEPARTMENT: General X-ray: Exam(s) Completed: Spine X-Ray(s): Cervical AP / LAT / OBL Lower Extremity X-Ray(s): Knee, AP / Lat / Tunne / Merchant Bilateral and Wt. Bearing PERIPHERAL IV DATA: Not applicable SIGNED BY: RT Wood(R) June 01, 2025 2:50 PM [facility] 05-16-2025 Note HNO ID: [id number] Author: LUC OLIVIER, DO Service: ? Author Type: Physician Type: Progress Notes Filed: 05/16/2025 18:04 Note Text: CC: Salazar Mello is a 49 year old male who presents to the office for physical HPI: Left neck pain, radiating into Left arm, significant symptoms. Present as numbness and tingling and pain into left lateral arm into the hand, worse with adduction of arm and better with abduction. Has had cervical DDD and DJD long standing. Seems to be worsening with his symptoms, no recent injuries. Has had PHYSICAL THERAPY and dry needling for this in the past with benefit Hx of left rotator cuff tear and dysfunction. Had surgical repair in 1992. Has intermittent pain symptoms. Recent he has aggravated his shoulder on left by Picking a cooler up and felt a pop in left shoulder, has felt discomfort the last few weeks since this happened. Use of ice and rest and NSAIDs without full improvement in symptoms. HPL, tolerating the pravastatin without SE, had SE with Crestor. B/l knee pain, arthritis, has been getting synvisc/euflexxa injections every 6 months, [facility]'t [facility] after [facility] his last appt, this is starting to cause him more difficulty with his job and walking and ambulation. PAST MEDICAL HISTORY Diagnosis Date Depressive disorder Essential hypertension Mixed hyperlipidemia Nightmares associated with chronic post-traumatic stress disorder EVER on CPAP PTSD (post-traumatic stress disorder) PAST SURGICAL HISTORY Procedure Laterality Date APPENDECTOMY 1981 PAST SURGICAL HISTORY OF 05/04/2021 back L5 S1 PAST SURGICAL HISTORY OF Left 2010 Left arm Ulnar shortening PAST SURGICAL HISTORY OF Left 1992 left shoulder Rotater cuff TONSILLECTOMY AND ADENOIDECTOMY Social History: SOCIAL HISTORY[1] FAMILY HISTORY Problem Relation Age of Onset Hypertension Mother Hyperlipidemia Mother Hypertension Father Hyperlipidemia Father Heart Attack Father 66 Heart Maternal Grandmother Stroke Paternal Grandmother Heart Attack Paternal Grandfather Current Outpatient prescriptions: pravastatin (PRAVACHOL) 80 mg tablet Take 80 mg by mouth once daily. albuterol HFA (PROVENTIL HFA, VENTOLIN HFA) 90 mcg/actuation inhaler Inhale 2 Puffs as instructed every 6 hours as needed for wheezing/shortness of breath. aspirin 81 mg chewable tablet Take 1 tablet by mouth once daily. ezetimibe (ZETIA) 10 mg tablet Take 10 mg by mouth once daily. celecoxib (CELEBREX) 100 mg capsule Take 100 mg by mouth once daily. citalopram (CELEXA) 20 mg tablet Take by mouth once daily. omeprazole (PRILOSEC) 20 mg capsule Take 20 mg by mouth once daily. amLODIPine-benazepril (LOTREL) 5-20 mg per capsule Take 1 capsule by mouth once daily. tamsulosin (FLOMAX) 0.4 mg Take 0.4 mg by mouth once daily. prazosin (MINIPRESS) 1 mg cap Take 1 mg by mouth twice daily. cetirizine (ZYRTEC) 10 mg tablet Take 10 mg by mouth once daily. fluticasone propionate (FLONASE NASAL) Use in the nose. Allergies: ALLERGIES Allergen Reactions Rosuvastatin Other: See Comments ROS: See HPI PE: 05/16/25 1653 BP: 130/82 Pulse: 68 Resp: 16 Temp: 36.1 ?C (97 ?F) TempSrc: Left Tympanic Weight: 110.7 kg (244 lb) Height: 179 cm (5' 10.47) Gen: AANDO, NAD, non-toxic appearing, Pleasant, cooperative HEENT: NT/AC, PERRLA, EOMs intact b/l, nares clear and patent b/l, pharynx without erythema, exudate or lesions. MMM, Uvula midline. EACs without erythema or debris. TMs pearly rudd with intact landmarks b/l. Neck: supple, No cervical LAD, no thyromegaly, no carotid bruits, + significant muscle spasms left >right neck with pain with ROM and radicular symptoms CV: RRR, normal S1 and S2, no murmurs, no gallops, no rubs, Pulses 2+ and symmetric in UE and LE b/l Lungs: normal respiratory effort, CTA b/l, no wheezing or rhonchi or rales Abd: soft, NT, ND, +BS, no hepatosplenomegaly MS left shoulder bursa swelling and restriction of rotator cuff without signs of tear but with pain with ROM, intact biceps and triceps tendons. B/l knee pain joint with effusions present Neuro: CN II-XII intact b/l, strength 5/5 b/l UE and LE, DTRs 2/4 UE and LE, sensation intact. Skin: warm, dry, intact, No rashes or lesions on exposed skin. No edema, normal pulses Injection of 2 cc of 2% lidocaine plain, 1 cc of 6 mg of Betamethasone was given to the left shoulder joint by posterior lateral approach after area was cleaned and sterilized with 3 povidine-iodine washes. Patient advised to ice 10 minutes every two hours after the injection for the next 24 hours and prn NSAIDS. Tolerated procedure well without complications. ASSESSMENT/PLAN: 1. Well adult exam - ICD9: V70.0, ICD10: Z00.00 (primary diagnosis) - Counseled on healthy diet and regular exercise 2. Mixed hyperlipidemia - ICD9: 272.2, ICD10: E78.2 - Control improving - Continue curr (more content not included)... [facility] 05-16-2025 History of Present illness Narrative CC: Salazar Mello is a 49 year old male who presents to the office for physical HPI: Left neck pain, radiating into Left arm, significant symptoms. Present as numbness and tingling and pain into left lateral arm into the hand, worse with adduction of arm and better with abduction. Has had cervical DDD and DJD long standing. Seems to be worsening with his symptoms, no recent injuries. Has had PHYSICAL THERAPY and dry needling for this in the past with benefit Hx of left rotator cuff tear and dysfunction. Had surgical repair in 1992. Has intermittent pain symptoms. Recent he has aggravated his shoulder on left by Picking a cooler up and felt a pop in left shoulder, has felt discomfort the last few weeks since this happened. Use of ice and rest and NSAIDs without full improvement in symptoms. HPL, tolerating the pravastatin without SE, had SE with Crestor. B/l knee pain, arthritis, has been getting synvisc/euflexxa injections every 6 months, [facility]'t been [facility] after [facility] his last appt, this is starting to cause him more difficulty with his job and walking and ambulation. PAST MEDICAL HISTORY Diagnosis Date Depressive disorder Essential hypertension Mixed hyperlipidemia Nightmares associated with chronic post-traumatic stress disorder EVER on CPAP PTSD (post-traumatic stress disorder) PAST SURGICAL HISTORY Procedure Laterality Date APPENDECTOMY 1981 PAST SURGICAL HISTORY OF 05/04/2021 back L5 S1 PAST SURGICAL HISTORY OF Left 2009 Left arm Ulnar shortening PAST SURGICAL HISTORY OF Left 1992 left shoulder Rotater cuff TONSILLECTOMY & ADENOIDECTOMY <AGE 11 Social History: SOCIAL HISTORY[1] FAMILY HISTORY Problem Relation Age of Onset Hypertension Mother Hyperlipidemia Mother Hypertension Father Hyperlipidemia Father Heart Attack Father 66 Heart Maternal Grandmother Stroke Paternal Grandmother Heart Attack Paternal Grandfather Current Outpatient prescriptions: pravastatin (PRAVACHOL) 80 mg tablet Take 80 mg by mouth once daily. albuterol HFA (PROVENTIL HFA, VENTOLIN HFA) 90 mcg/actuation inhaler Inhale 2 Puffs as instructed every 6 hours as needed for wheezing/shortness of breath. aspirin 81 mg chewable tablet Take 1 tablet by mouth once daily. ezetimibe (ZETIA) 10 mg tablet Take 10 mg by mouth once daily. celecoxib (CELEBREX) 100 mg capsule Take 100 mg by mouth once daily. citalopram (CELEXA) 20 mg tablet Take by mouth once daily. omeprazole (PRILOSEC) 20 mg capsule Take 20 mg by mouth once daily. amLODIPine-benazepril (LOTREL) 5-20 mg per capsule Take 1 capsule by mouth once daily. tamsulosin (FLOMAX) 0.4 mg Take 0.4 mg by mouth once daily. prazosin (MINIPRESS) 1 mg cap Take 1 mg by mouth twice daily. cetirizine (ZYRTEC) 10 mg tablet Take 10 mg by mouth once daily. fluticasone propionate (FLONASE NASAL) Use in the nose. Allergies: ALLERGIES Allergen Reactions Rosuvastatin Other: See Comments ROS: See HPI PE: 05/16/25 1653 BP: 130/82 Pulse: 68 Resp: 16 Temp: 36.1 C (97 F) TempSrc: Left Tympanic Weight: 110.7 kg (244 lb) Height: 179 cm (5' 10.47) Gen: A&O, NAD, non-toxic appearing, Pleasant, cooperative HEENT: NT/AC, PERRLA, EOMs intact b/l, nares clear and patent b/l, pharynx without erythema, exudate or lesions. MMM, Uvula midline. EACs without erythema or debris. TMs pearly rudd with intact landmarks b/l. Neck: supple, No cervical LAD, no thyromegaly, no carotid bruits, + significant muscle spasms left >right neck with pain with ROM and radicular symptoms CV: RRR, normal S1 and S2, no murmurs, no gallops, no rubs, Pulses 2+ and symmetric in UE and LE b/l Lungs: normal respiratory effort, CTA b/l, no wheezing or rhonchi or rales Abd: soft, NT, ND, +BS, no hepatosplenomegaly MS left shoulder bursa swelling and restriction of rotator cuff without signs of tear but with pain with ROM, intact biceps and triceps tendons. B/l knee pain joint with effusions present Neuro: CN II-XII intact b/l, strength 5/5 b/l UE and LE, DTRs 2/4 UE and LE, sensation intact. Skin: warm, dry, intact, No rashes or lesions on exposed skin. No edema, normal pulses Injection of 2 cc of 2% lidocaine plain, 1 cc of 6 mg of Betamethasone was given to the left shoulder joint by posterior lateral approach after area was cleaned and sterilized with 3 povidine-iodine washes. Patient advised to ice 10 minutes every two hours after the injection for the next 24 hours and prn NSAIDS. Tolerated procedure well without complications. ASSESSMENT/PLAN: 1. Well adult exam - ICD9: V70.0, ICD10: Z00.00 (primary diagnosis) - Counseled on healthy diet and regular exercise 2. Mixed hyperlipidemia - ICD9: 272.2, ICD10: E78.2 - Control improving - Continue current medications - Counseled on healthy diet and regular exercise 3. Essential hypertension - ICD9: 401.9, ICD10: I10 - Controlled - Continue current medications - Recommend home blood pressure monitoring, to bring results to next visit - Encouraged sodium restriction, DASH or Mediterranean diet - Recommend regular aerobic exercise 4. EVER on CPAP - ICD9: 327.23, ICD10: G47.33 stable 5. Routine physical examination - ICD9: V70.0, ICD10: Z00.00 - Counseled on healthy diet and regular exercise - COMPLETE BLOOD COUNT AND DIFFERENTIAL - THYROID STIMULATING HORMONE - T4 FREE/FREE THYROXINE - HEMOGLOBIN A1C - PSA/PROSTATE SPECIFIC ANTIGEN SCREENING - VITAMIN B12 - VITAMIN D 25 HYDROXY 6. Osteoarthritis of spine with radiculopathy, cervical region - ICD9: 721.0, ICD10: M47.22 Need to start PHYSICAL THERAPY and dry needling Xray as ordered Hx of DJD and DDD cervical - XR CERV OTHER 4V AP/LAT/OBL - CONSULT TO PHYSICAL THERAPY 7. Arm paresthesia, left - ICD9: 782.0, ICD10: R20.2 Need to start PHYSICAL THERAPY and dry needling Xray as ordered Hx of DJD and DDD cervical - XR CERV OTHER 4V AP/LAT/OBL - CONSULT TO PHYSICAL THERAPY 8. Chronic pain of both knees - ICD9: 719.46, 338.29, ICD10: M25.561, M25.562, G89.29 Referral for joint fluid injections - CONSULT TO ORTHOPAEDICS 9. Acute pain of left shoulder - ICD9: 719.41, ICD10: M25.512 Given corticosteroid injection in left shoudler joint today in office Tolerated well, no complications He is aware of care at home. F/u with orthopedics if not improving 10. Acute bursitis of left shoulder - ICD9: 726.10, ICD10: M75.52 Given corticosteroid injection in left shoudler joint today in office Tolerated well, no complications He is aware of care at home. F/u with orthopedics if not improving Luc Olivier DO To ER if develops chest pain, shortness of breath, or severe worsening of symptoms. Discussed risks, benefits, alternatives, and potential side effects of medications. Patient expressed understanding and agreed with the plan. Luc Olivier DO [address] [place] [address] [1] Social History Tobacco Use Smoking status: Former Types: Cigarettes documented in this encounter [facility] 11-16-2024 Telephone encounter Note Patient informed and verbalized understanding. Heavenly Cancino MA [facility] 11-16-2024 Miscellaneous Notes Patient informed and verbalized understanding. Heavenly Cancino MA ----- Message from Nhi Becerril sent at 11/16/2024 11:37 AM EST ----- Urinalysis was normal. No blood. No infection is noted by negative nitrates and leukocytes. Urinalysis was normal. No blood. No infection is noted by negative nitrates and leukocytes. documented in this encounter [facility] 11-16-2024 Telephone encounter Note ----- Message from Nhi Becerril sent at 11/16/2024 11:37 AM EST ----- Urinalysis was normal. No blood. No infection is noted by negative nitrates and leukocytes. [facility] 11-16-2024 Progress note Formatting of t his note might be different from the original. Urinalysis was normal. No blood. No infection is noted by negative nitrates and leukocytes. [facility] 11-14-2024 Instructions Nhi Becerril APRN.CNP - 11/14/2024 4:04 PM EST 1) Bactrim DS 2 x day for 10 days- take with at least 8 oz water each tablet 2) Get urinalysis done 3) If able, [facility] Chart documented in this encounter [facility] 11-14-2024 Note HNO ID: [id number] Author: NHI BECERRIL APRN.CNP Service: ? Author Type: Nurse Practitioner Type: Progress Notes Filed: 11/14/2024 16:04 Note Text: This is a 49 year old male who presents today with: Patient presents with: Testicular Pain: Swelling in left testicle. Started late 11/11/24. Blood In Urine: When sitting down to push with bowel movement HISTORY OF PRESENT ILLNESS: Salazar Mello is a 49 year old male. Patient presents with: Testicular Pain: Swelling in left testicle. Started late 11/11/24. Blood In Urine: When sitting down to push with bowel movement Left testicle pain started Wednesday evening. Very painful that day into Wednesday. Swelled up. No fever or chills No headache or body aches. Denies chance of STD per pt. PAST MEDICAL HISTORY: PAST MEDICAL HISTORY Diagnosis Date Depressive disorder Essential hypertension Mixed hyperlipidemia Nightmares associated with chronic post-traumatic stress disorder EVER on CPAP PTSD (post-traumatic stress disorder) PAST SURGICAL HISTORY Procedure Laterality Date APPENDECTOMY 1981 PAST SURGICAL HISTORY OF 05/04/2021 back L5 S1 PAST SURGICAL HISTORY OF Left 2010 Left arm Ulnar shortening PAST SURGICAL HISTORY OF Left 1992 left shoulder Rotater cuff TONSILLECTOMY AND ADENOIDECTOMY ALLERGIES Patient has no known allergies. MEDICATIONS Current Outpatient Medications Medication Sig pravastatin (PRAVACHOL) 80 mg tablet Take 80 mg by mouth once daily. albuterol HFA (PROVENTIL HFA, VENTOLIN HFA) 90 mcg/actuation inhaler Inhale 2 Puffs as instructed every 6 hours as needed for wheezing/shortness of breath. aspirin 81 mg chewable tablet Take 1 tablet by mouth once daily. ezetimibe (ZETIA) 10 mg tablet Take 10 mg by mouth once daily. celecoxib (CELEBREX) 100 mg capsule Take 100 mg by mouth once daily. citalopram (CELEXA) 20 mg tablet Take by mouth once daily. omeprazole (PRILOSEC) 20 mg capsule Take 20 mg by mouth once daily. amLODIPine-benazepril (LOTREL) 5-20 mg per capsule Take 1 capsule by mouth once daily. tamsulosin (FLOMAX) 0.4 mg Take 0.4 mg by mouth once daily. prazosin (MINIPRESS) 1 mg cap Take 1 mg by mouth twice daily. cetirizine (ZYRTEC) 10 mg tablet Take 10 mg by mouth once daily. fluticasone propionate (FLONASE NASAL) Use in the nose. rosuvastatin (CRESTOR) 20 mg tablet Take 1 tablet by mouth daily at bedtime. No current facility-administered medications for this visit. FAMILY HISTORY Problem Relation Age of Onset Hypertension Mother Hyperlipidemia Mother Hypertension Father Hyperlipidemia Father Heart Attack Father 66 Heart Maternal Grandmother Stroke Paternal Grandmother Heart Attack Paternal Grandfather Social History Tobacco Use Smoking status: Former Types: Cigarettes EXAM: BP 132/80 Pulse 74 Temp 36.6 ?C (97.9 ?F) (Left Tympanic) Wt 108.9 kg (240 lb) SpO2 97% BMI 34.44 kg/m? PHYSICAL EXAM: Physical Exam Vitals reviewed. Constitutional: Appearance: Normal appearance. Genitourinary: Comments: Left testicle tender to palpate in the posterior aspect. Very minimal pain. No redness, heat, or open areas indicating a cellulitis Skin: General: Skin is warm and dry. Neurological: Mental Status: He is alert and oriented to person, place, and time. LABS: Labs from [facility] recently per pt. Indicated renal function normal ASSESSMENT/PLAN: 1. Left epididymitis - ICD9: 604.90, ICD10: N45.1 Denies chance of STD - URINALYSIS, WITH MICROSCOPIC - SULFAMETHOXAZOLE 800 MG-TRIMETHOPRIM 160 MG TABLET 2 x day for 10 days Discussed treatment plan and patient voices understanding. Patient's questions answered appropriately. Medications and potential side effects were discussed and patient voices understanding. Return to the office as scheduled or as needed for worsening/no improvement. Nhi Becerril APRN.[facility] 11-14-2024 History of Present illness Narrative This is a 49 year old male who presents today with: Patient presents with: Testicular Pain: Swelling in left testicle. Started late 11/11/24. Blood In Urine: When sitting down to push with bowel movement HISTORY OF PRESENT ILLNESS: Salazar Mello is a 49 year old male. Patient presents with: Testicular Pain: Swelling in left testicle. Started late 11/11/24. Blood In Urine: When sitting down to push with bowel movement Left testicle pain started Wednesday evening. Very painful that day into Wednesday. Swelled up. No fever or chills No headache or body aches. Denies chance of STD per pt. PAST MEDICAL HISTORY: PAST MEDICAL HISTORY Diagnosis Date Depressive disorder Essential hypertension Mixed hyperlipidemia Nightmares associated with chronic post-traumatic stress disorder EVER on CPAP PTSD (post-traumatic stress disorder) PAST SURGICAL HISTORY Procedure Laterality Date APPENDECTOMY 1982 PAST SURGICAL HISTORY OF 05/04/2021 back L5 S1 PAST SURGICAL HISTORY OF Left 2010 Left arm Ulnar shortening PAST SURGICAL HISTORY OF Left 1992 left shoulder Rotater cuff TONSILLECTOMY & ADENOIDECTOMY <AGE 11 ALLERGIES Patient has no known allergies. MEDICATIONS Current Outpatient Medications Medication Sig pravastatin (PRAVACHOL) 80 mg tablet Take 80 mg by mouth once daily. albuterol HFA (PROVENTIL HFA, VENTOLIN HFA) 90 mcg/actuation inhaler Inhale 2 Puffs as instructed every 6 hours as needed for wheezing/shortness of breath. aspirin 81 mg chewable tablet Take 1 tablet by mouth once daily. ezetimibe (ZETIA) 10 mg tablet Take 10 mg by mouth once daily. celecoxib (CELEBREX) 100 mg capsule Take 100 mg by mouth once daily. citalopram (CELEXA) 20 mg tablet Take by mouth once daily. omeprazole (PRILOSEC) 20 mg capsule Take 20 mg by mouth once daily. amLODIPine-benazepril (LOTREL) 5-20 mg per capsule Take 1 capsule by mouth once daily. tamsulosin (FLOMAX) 0.4 mg Take 0.4 mg by mouth once daily. prazosin (MINIPRESS) 1 mg cap Take 1 mg by mouth twice daily. cetirizine (ZYRTEC) 10 mg tablet Take 10 mg by mouth once daily. fluticasone propionate (FLONASE NASAL) Use in the nose. rosuvastatin (CRESTOR) 20 mg tablet Take 1 tablet by mouth daily at bedtime. No current facility-administered medications for this visit. FAMILY HISTORY Problem Relation Age of Onset Hypertension Mother Hyperlipidemia Mother Hypertension Father Hyperlipidemia Father Heart Attack Father 66 Heart Maternal Grandmother Stroke Paternal Grandmother Heart Attack Paternal Grandfather Social History Tobacco Use Smoking status: Former Types: Cigarettes EXAM: BP 132/80 Pulse 74 Temp 36.6 C (97.9 F) (Left Tympanic) Wt 108.9 kg (240 lb) SpO2 97% BMI 34.44 kg/m PHYSICAL EXAM: Physical Exam Vitals reviewed. Constitutional: Appearance: Normal appearance. Genitourinary: Comments: Left testicle tender to palpate in the posterior aspect. Very minimal pain. No redness, heat, or open areas indicating a cellulitis Skin: General: Skin is warm and dry. Neurological: Mental Status: He is alert and oriented to person, place, and time. LAB[facility]: [facility] Indicated renal function normal ASSESSMENT/PLAN: 1. Left epididymitis - ICD9: 604.90, ICD10: N45.1 Denies chance of STD - URINALYSIS, WITH MICROSCOPIC - SULFAMETHOXAZOLE 800 MG-TRIMETHOPRIM 160 MG TABLET 2 x day for 10 days Discussed treatment plan and patient voices understanding. Patient's questions answered appropriately. Medications and potential side effects were discussed and patient voices understanding. Return to the office as scheduled or as needed for worsening/no improvement. Nhi Becerril APRN.CNP documented in this encounter [facility] 10-23-2024 Telephone encounter Note The following approved medication requests have been transmitted electronically. Requested Prescriptions Signed Prescriptions Disp Refills azithromycin (ZITHROMAX Z-ZEYAD) 250 mg tablet 6 tablet 1 Sig: Take 2 tablets day one, then, 1 tablet daily until gone. Authorizing Provider: LUC OLIVIER DO [facility] 10-23-2024 Miscellaneous Notes The following approved medication requests have been transmitted electronically. Requested Prescriptions Signed Prescriptions Disp Refills azithromycin (ZITHROMAX Z-ZEYDA) 250 mg tablet 6 tablet 1 Sig: Take 2 tablets day one, then, 1 tablet daily until gone. Authorizing Provider: LUC OLIVIER DO documented in this encounter [facility] 10-19-2024 Telephone encounter Note Patient informed. Heavenly Cancino MA [facility] 10-19-2024 Miscellaneous Notes Patient informed. Heavenly Cancino MA Please call, he does not use his my chart. He was positive for influenza a. Chest xray was negative. Stay home and away from others until no fever and feeling better. Antibiotics will not help. He is too late to start antivirals. Call if any worsening symptoms. documented in this encounter [facility] 10-19-2024 Telephone encounter Note Please call, he does not use his my chart. He was positive for influenza a. Chest xray was negative. Stay home and away from others until no fever and feeling better. Antibiotics will not help. He is too late to start antivirals. Call if any worsening symptoms. [facility] 10-18-2024 History of Present illness Narrative Radiology Service Progress Note PATIENT NAME: Salazar Mello DATE OF SERVICE: October 18, 2024 TIME: 4:45 PM PATIENT IDENTITY VERIFICATION COMPLETED USING TWO (2) IDENTIFIERS: Name and Date of confirmed by patient verbally. FALL SCREENING: Has the patient had 2 falls in the last year or 1 fall with injury or currently using an Ambulatory Assistive Device (Walker, Cane, Wheelchair, Crutches, etc.)? No PATIENT GENDER DATA: Assigned male at PATIENT RELEVANT IMPLANT DATA REVIEWED: Not Applicable PATIENT PRESENTS WITH AN IMPLANTABLE OR ATTACHED MACHINIST GENERAL: No RADIOLOGY DEPARTMENT: General X-ray: Exam(s) Completed: Chest X-Ray PERIPHERAL IV DATA: Not applicable SIGNED BY: Toni Reyes October 18, 2024 4:45 PM documented in this encounter [facility] 10-18-2024 Note HNO ID: [id number] Author: HARINI SIMMONS Tech Service: ? Author Type: Technologist Type: Progress Notes Filed: 10/18/2024 16:52 Note Text: Radiology Service Progress Note PATIENT NAME: Salazar Mello DATE OF SERVICE: October 18, 2024 TIME: 4:45 PM PATIENT IDENTITY VERIFICATION COMPLETED USING TWO (2) IDENTIFIERS: Name and Date of confirmed by patient verbally. FALL SCREENING: Has the patient had 2 falls in the last year or 1 fall with injury or currently using an Ambulatory Assistive Device (Walker, Cane, Wheelchair, Crutches, etc.)? No PATIENT GENDER DATA: Assigned male at PATIENT RELEVANT IMPLANT DATA REVIEWED: Not Applicable PATIENT PRESENTS WITH AN IMPLANTABLE OR ATTACHED MACHINIST GENERAL: No RADIOLOGY DEPARTMENT: General X-ray: Exam(s) Completed: Chest X-Ray PERIPHERAL IV DATA: Not applicable SIGNED BY: Toni Reyes October 18, 2024 4:45 PM [facility] 10-18-2024 Note HNO ID: [id number] Author: DARIN HOGAN MD Service: ? Author Type: Physician Type: Progress Notes Filed: 10/18/2024 16:34 Note Text: Patient presents with: Cough HPI: Patient presents today for office visit for acute illness. DURATION OF SYMPTOMS: Began 5 days ago ONSET OF SYMPTOMS: Sudden FEVER: I felt like I had one. [place] chilled. Did not check. BODYACHES: Mild TIREDNESS: Severe HEADACHE: Mild EAR SYMPTOMS: right ear pain and feels blocked. STUFFY NOSE: Yes POST NASAL DRIP: Yes SNEEZING: Yes SORE THROAT: Yes - mild COUGH: Yes, with sputum production CHEST DISCOMFORT: Hurts when I cough SHORTNESS OF BREATH: Can't take deep breath. Causes coughing spasms. WHEEZING: Yes - but no history of asthma SPUTUM PRODUCTION: Green No nausea or vomiting or diarrhea. Using dayquil and nyquil. MEDICATIONS: Current Outpatient Medications Medication Sig rosuvastatin (CRESTOR) 20 mg tablet Take 1 tablet by mouth daily at bedtime. aspirin 81 mg chewable tablet Take 1 tablet by mouth once daily. ezetimibe (ZETIA) 10 mg tablet Take 10 mg by mouth once daily. celecoxib (CELEBREX) 100 mg capsule Take 100 mg by mouth once daily. citalopram (CELEXA) 20 mg tablet Take by mouth once daily. omeprazole (PRILOSEC) 20 mg capsule Take 20 mg by mouth once daily. amLODIPine-benazepril (LOTREL) 5-20 mg per capsule Take 1 capsule by mouth once daily. tamsulosin (FLOMAX) 0.4 mg Take 0.4 mg by mouth once daily. prazosin (MINIPRESS) 1 mg cap Take 1 mg by mouth twice daily. cetirizine (ZYRTEC) 10 mg tablet Take 10 mg by mouth once daily. fluticasone propionate (FLONASE NASAL) Use in the nose. No current facility-administered medications for this visit. ALLERGIES: ALLERGIES No Known Allergies PAST MEDICAL HISTORY Diagnosis Date Depressive disorder Essential hypertension Mixed hyperlipidemia Nightmares associated with chronic post-traumatic stress disorder EVER on CPAP PTSD (post-traumatic stress disorder) PAST SURGICAL HISTORY Procedure Laterality Date APPENDECTOMY 1981 PAST SURGICAL HISTORY OF 05/04/2021 back L5 S1 PAST SURGICAL HISTORY OF Left 2009 Left arm Ulnar shortening PAST SURGICAL HISTORY OF Left 1992 left shoulder Rotater cuff TONSILLECTOMY AND ADENOIDECTOMY FAMILY HISTORY Problem Relation Age of Onset Hypertension Mother Hyperlipidemia Mother Hypertension Father Hyperlipidemia Father Heart Attack Father 66 Heart Maternal Grandmother Stroke Paternal Grandmother Heart Attack Paternal Grandfather Social History Tobacco Use Smoking status: Former Types: Cigarettes Reviewed current medications, allergies, past medical history, surgical history, family history and social history today. REVIEW OF SYSTEMS All other reviewed and negative other than HPI. VITALS: BP 113/75 Pulse 71 Temp 36.9 ?C (98.4 ?F) Ht 177.8 cm (5' 10) Wt 113.4 kg (250 lb) BMI 35.87 kg/m? Last 4 Encounter Wt Readings: Date: Wt: 10/18/2024 113.4 kg (250 lb) 03/01/2024 110.7 kg (244 lb) 09/03/2022 11.2 kg (24 lb 12.8 oz) PHYSICAL EXAMINATION: General appearance: Well appearing, alert, in no acute distress, well-hydrated, well nourished. Skin: Skin color, texture, turgor normal, no suspicious rashes or lesions Head: Normocephalic, no masses, lesions, tenderness or abnormalities Eyes: Anicteric sclera. Pupils are equally round and reactive to light. Extraocular movements are intact. Ears: External ears normal, canals clear Nose/Sinuses: Nares normal, septum midline, mucosa normal, no drainage or sinus tenderness Oropharynx: Lips, mucosa, and tongue normal, teeth and gums normal, oropharynx normal Neck: Negative findings: no adenopathy Lungs: moving air well. Scattered end exp wheezing. Heart: RRR without murmur, gallop, or rubs. No ectopy Abdomen: Normal abdominal exam, Abdomen soft, non-tender. Bowel sounds normal. No masses, organomegaly Extremities: No deformities, edema, ASSESSMENT/PLAN: 1. Wheezing - ICD9: 786.07, ICD10: R06.2 (primary diagnosis) - Discussed risks and benefits of new medication with the patient. Advised them to call if any side effects or questions. Red flags for re-assessment reviewed with patient in detail. Call if symptoms worsen at all or if not better in 5 to 7 days. Can consider antibiotic if not improveing. Reviewed diagnosis and treatment options in detail. Questions were answered. Patient expressed understanding of treatment plan. - ALBUTEROL SULFATE HFA 90 MCG/ACTUATION AEROSOL INHALER - METHYLPREDNISOLONE 4 MG TABLETS IN A DOSE PACK - BENZONATATE 100 MG CAPSULE 2. Mixed hyperlipidemia - ICD9: 272.2, ICD10: E78.2 - stable 3. Essential hypertension - ICD9: 401.9, ICD10: I10 - Controlled - Continue current medications 4. Acute cough - ICD9: 786.2, ICD10: R05.1 - XR CHEST 2V FRONTAL/LAT - COVID AND INFLUENZA A/B AND RSV PCR, ROUTINE - ALBUTEROL SULFATE HFA 90 MCG/ACTUATION AEROSOL INH (more content not included)... [facility] 10-18-2024 History of Present illness Narrative Patient presents with: Cough HPI: Patient presents today for office visit for acute illness. DURATION OF SYMPTOMS: Began 5 days ago ONSET OF SYMPTOMS: Sudden FEVER: I felt like I had one. [place] chilled. Did not check. BODYACHES: Mild TIREDNESS: Severe HEADACHE: Mild EAR SYMPTOMS: right ear pain and feels blocked. STUFFY NOSE: Yes POST NASAL DRIP: Yes SNEEZING: Yes SORE THROAT: Yes - mild COUGH: Yes, with sputum production CHEST DISCOMFORT: Hurts when I cough SHORTNESS OF BREATH: Can't take deep breath. Causes coughing spasms. WHEEZING: Yes - but no history of asthma SPUTUM PRODUCTION: Green No nausea or vomiting or diarrhea. Using dayquil and nyquil. MEDICATIONS: Current Outpatient Medications Medication Sig rosuvastatin (CRESTOR) 20 mg tablet Take 1 tablet by mouth daily at bedtime. aspirin 81 mg chewable tablet Take 1 tablet by mouth once daily. ezetimibe (ZETIA) 10 mg tablet Take 10 mg by mouth once daily. celecoxib (CELEBREX) 100 mg capsule Take 100 mg by mouth once daily. citalopram (CELEXA) 20 mg tablet Take by mouth once daily. omeprazole (PRILOSEC) 20 mg capsule Take 20 mg by mouth once daily. amLODIPine-benazepril (LOTREL) 5-20 mg per capsule Take 1 capsule by mouth once daily. tamsulosin (FLOMAX) 0.4 mg Take 0.4 mg by mouth once daily. prazosin (MINIPRESS) 1 mg cap Take 1 mg by mouth twice daily. cetirizine (ZYRTEC) 10 mg tablet Take 10 mg by mouth once daily. fluticasone propionate (FLONASE NASAL) Use in the nose. No current facility-administered medications for this visit. ALLERGIES: ALLERGIES No Known Allergies PAST MEDICAL HISTORY Diagnosis Date Depressive disorder Essential hypertension Mixed hyperlipidemia Nightmares associated with chronic post-traumatic stress disorder EVER on CPAP PTSD (post-traumatic stress disorder) PAST SURGICAL HISTORY Procedure Laterality Date APPENDECTOMY 1981 PAST SURGICAL HISTORY OF 05/04/2021 back L5 S1 PAST SURGICAL HISTORY OF Left 2010 Left arm Ulnar shortening PAST SURGICAL HISTORY OF Left 1992 left shoulder Rotater cuff TONSILLECTOMY & ADENOIDECTOMY <AGE 11 FAMILY HISTORY Problem Relation Age of Onset Hypertension Mother Hyperlipidemia Mother Hypertension Father Hyperlipidemia Father Heart Attack Father 66 Heart Maternal Grandmother Stroke Paternal Grandmother Heart Attack Paternal Grandfather Social History Tobacco Use Smoking status: Former Types: Cigarettes Reviewed current medications, allergies, past medical history, surgical history, family history and social history today. REVIEW OF SYSTEMS All other reviewed and negative other than HPI. VITALS: BP 113/75 Pulse 71 Temp 36.9 C (98.4 F) Ht 177.8 cm (5' 10) Wt 113.4 kg (250 lb) BMI 35.87 kg/m Last 4 Encounter Wt Readings: Date: Wt: 10/18/2024 113.4 kg (250 lb) 03/01/2024 110.7 kg (244 lb) 09/03/2022 11.2 kg (24 lb 12.8 oz) PHYSICAL EXAMINATION: General appearance: Well appearing, alert, in no acute distress, well-hydrated, well nourished. Skin: Skin color, texture, turgor normal, no suspicious rashes or lesions Head: Normocephalic, no masses, lesions, tenderness or abnormalities Eyes: Anicteric sclera. Pupils are equally round and reactive to light. Extraocular movements are intact. Ears: External ears normal, canals clear Nose/Sinuses: Nares normal, septum midline, mucosa normal, no drainage or sinus tenderness Oropharynx: Lips, mucosa, and tongue normal, teeth and gums normal, oropharynx normal Neck: Negative findings: no adenopathy Lungs: moving air well. Scattered end exp wheezing. Heart: RRR without murmur, gallop, or rubs. No ectopy Abdomen: Normal abdominal exam, Abdomen soft, non-tender. Bowel sounds normal. No masses, organomegaly Extremities: No deformities, edema, ASSESSMENT/PLAN: 1. Wheezing - ICD9: 786.07, ICD10: R06.2 (primary diagnosis) - Discussed risks and benefits of new medication with the patient. Advised them to call if any side effects or questions. Red flags for re-assessment reviewed with patient in detail. Call if symptoms worsen at all or if not better in 5 to 7 days. Can consider antibiotic if not improveing. Reviewed diagnosis and treatment options in detail. Questions were answered. Patient expressed understanding of treatment plan. - ALBUTEROL SULFATE HFA 90 MCG/ACTUATION AEROSOL INHALER - METHYLPREDNISOLONE 4 MG TABLETS IN A DOSE PACK - BENZONATATE 100 MG CAPSULE 2. Mixed hyperlipidemia - ICD9: 272.2, ICD10: E78.2 - stable 3. Essential hypertension - ICD9: 401.9, ICD10: I10 - Controlled - Continue current medications 4. Acute cough - ICD9: 786.2, ICD10: R05.1 - XR CHEST 2V FRONTAL/LAT - COVID & INFLUENZA A/B & RSV PCR, ROUTINE - ALBUTEROL SULFATE HFA 90 MCG/ACTUATION AEROSOL INHALER - METHYLPREDNISOLONE 4 MG TABLETS IN A DOSE PACK - BENZONATATE 100 MG CAPSULE 5. URI, acute - ICD9: 465.9, ICD10: J06.9 - XR CHEST 2V FRONTAL/LAT - COVID & INFLUENZA A/B & RSV PCR, ROUTINE Darin Hogan MD documented in this encounter [facility] 03-01-2024 History of Present illness Narrative CC: Salazar Mello is a 48 year old male who presents to the office to establish care. HPI: History reviewed. No pertinent past medical history. PAST SURGICAL HISTORY Procedure Laterality Date APPENDECTOMY 1981 PAST SURGICAL HISTORY OF 05/04/2021 back L5 S1 PAST SURGICAL HISTORY OF Left 2010 Left arm Ulnar shortening PAST SURGICAL HISTORY OF Left 1992 left shoulder Rotater cuff TONSILLECTOMY & ADENOIDECTOMY <AGE 11 Social History: FAMILY HISTORY Problem Relation Age of Onset Hypertension Mother Hyperlipidemia Mother Hypertension Father Hyperlipidemia Father Heart Attack Father 66 Heart Maternal Grandmother Stroke Paternal Grandmother Heart Attack Paternal Grandfather Current Outpatient prescriptions: rosuvastatin (CRESTOR) 20 mg tablet Take 1 tablet by mouth daily at bedtime. aspirin 81 mg chewable tablet Take 1 tablet by mouth once daily. ezetimibe (ZETIA) 10 mg tablet Take 10 mg by mouth once daily. celecoxib (CELEBREX) 100 mg capsule Take 100 mg by mouth once daily. citalopram (CELEXA) 20 mg tablet Take by mouth once daily. omeprazole (PRILOSEC) 20 mg capsule Take 20 mg by mouth once daily. amLODIPine-benazepril (LOTREL) 5-20 mg per capsule Take 1 capsule by mouth once daily. tamsulosin (FLOMAX) 0.4 mg Take 0.4 mg by mouth once daily. prazosin (MINIPRESS) 1 mg cap Take 1 mg by mouth twice daily. cetirizine (ZYRTEC) 10 mg tablet Take 10 mg by mouth once daily. fluticasone propionate (FLONASE NASAL) Use in the nose. Allergies: ALLERGIES No Known Allergies ROS: See HPI PE: 03/01/24 1649 BP: 120/80 Pulse: 76 Resp: 16 Temp: 36.7 C (98 F) TempSrc: Left Tympanic Weight: 110.7 kg (244 lb) Height: 179 cm (5' 10.47) Gen: A&O, NAD, non-toxic appearing, Pleasant, cooperative HEENT: NT/AC, PERRLA, EOMs intact b/l, nares clear and patent b/l, pharynx without erythema, exudate or lesions. Uvula midline. MMM, EACs without erythema or debris. TMs pearly rudd with intact landmarks b/l. Neck: supple, No cervical LAD, no thyromegaly, no carotid bruits CV: RRR, normal S1 and S2, no murmurs, no gallops, no rubs, Pulses 2+ and symmetric in UE and LE b/l Lungs: normal respiratory effort, CTA b/l, no wheezing or rhonchi or rales Abd: soft, NT, ND, +BS, no hepatosplenomegaly MS: FROM all 4 extremities Neuro: CN II-XII intact b/l, strength 5/5 b/l UE and LE, DTRs 2/4 UE and LE, sensation intact. Skin: warm, dry, intact, multiple pigmented nevi with some atypical features on back without bleeding or telangiectasias No edema, normal pulses ASSESSMENT/PLAN: 1. Routine physical examination - ICD9: V70.0, ICD10: Z00.00 (primary diagnosis) - Counseled on healthy diet and regular exercise 2. Hyperlipidemia, mixed - ICD9: 272.2, ICD10: E78.2 - Control undetermined, due for labs - Counseled on healthy diet and regular exercise - Discussed need for and benefit of weight loss. BMI 34.54 kg/(m^2) - ROSUVASTATIN 20 MG TABLET 3. EVER on CPAP - ICD9: 327.23, ICD10: G47.33 Continue CPAP 4. Essential hypertension - ICD9: 401.9, ICD10: I10 - Controlled - Continue current medications - Recommend home blood pressure monitoring, to bring results to next visit - Encouraged sodium restriction, DASH or Mediterranean diet - Recommend regular aerobic exercise 5. Nightmares associated with chronic post-traumatic stress disorder - ICD9: 307.47, 309.81, ICD10: F51.5, F43.12 [facility], seems to be stable, hx of x 20 years and PTSD and nigthmares. Taking Celexa and minipress 6. Depressive disorder - ICD9: 311, ICD10: F32.A [facility], seems to be stable, hx of x 20 years and PTSD and nigthmares. Taking Celexa and minipress 7. PTSD (post-traumatic stress disorder) - ICD9: 309.81, ICD10: F43.10 [facility], seems to be stable, hx of x 20 years and PTSD and nigthmares. Taking Celexa and minipress 8. Mixed hyperlipidemia - ICD9: 272.2, ICD10: E78.2 - Control undetermined, due for labs - Counseled on healthy diet and regular exercise - Discussed need for and benefit of weight loss. BMI 34.54 kg/(m^2) 9. Multiple atypical nevi - ICD9: 216.9, ICD10: D22.9 F/u in office for full skin check. Suspicious that he may need biopsy of several nevi on his back, he is aware Luc Olivier DO To ER if develops chest pain, shortness of breath, or severe worsening of symptoms. Discussed risks, benefits, alternatives, and potential side effects of medications. Patient expressed understanding and agreed with the plan. Luc Olivier DO [address] [place] [address] documented in this encounter [facility] 09-02-2022 Miscellaneous Notes Pt's ( ) stated that she had spoken with [facility] nurse that they would establish care with patient. Please advise and call pt back. documented in this encounter [facility] Evaluation note Diagnosis Routine physical examination- Primary Routine general medical examination at a health care facility Hyperlipidemia, mixed Mixed hyperlipidemia EVER on CPAP Obstructive sleep apnea (adult) (pediatric) Essential hypertension Unspecified essential hypertension Nightmares associated with chronic post-traumatic stress disorder Other dysfunctions of sleep stages or arousal from sleep Depressive disorder Depressive disorder, not elsewhere classified PTSD (post-traumatic stress disorder) Posttraumatic stress disorder Mixed hyperlipidemia Multiple atypical nevi [facility] Wheezing- Primary Mixed hyperlipidemia Essential hypertension Unspecified essential hypertension Acute cough URI, acute Acute upper respiratory infections of unspecified site Acute cough URI, acute Acute upper respiratory infections of unspecified site [facility] Acute cough URI, acute Acute upper respiratory infections of unspecified site [facility] Diagnosis Left epididymitis- Primary Orchitis and epididymitis, unspecified [facility] Diagnosis Productive cough Cough [facility] Diagnosis Well adult exam- Primary Routine general medical examination at a [facility] care facility Mixed hyperlipidemia Essential hypertension Unspecified essential hypertension EVER on CPAP Obstructive sleep apnea (adult) (pediatric) Routine physical examination Routine general medical examination at a [facility] facility Osteoarthritis of spine with radiculopathy, cervical region Arm paresthesia, left Disturbance of skin sensation Chronic pain of both knees Acute pain of left shoulder Acute bursitis of left shoulder [facility] Diagnosis Pain in both knees, unspecified chronicity- Primary [facility] Diagnosis Chronic pain of both knees- Primary Primary osteoarthritis of both knees Primary localized osteoarthrosis, lower leg Personal history of [facility] Diagnosis Osteoarthritis of spine with radiculopathy, cervical region Arm paresthesia, left Disturbance of skin sensation [facility]* Diagnosis Pain in both knees, unspecified chronicity documented in this encounter [facility] for visit Narrative* Diagnostic Procedure Only (Routine) - Closed Specialty Diagnoses / Procedures Referred By Contac christian Referred To Contact XR IMAGING Diagnoses Osteoarthritis of spine with radiculopathy, cervical region Arm paresthesia, left Procedures XR CERV OTHER 4V AP/LAT/OBL RADEX SPINE CERVICAL 4 OR 5 VIEWS Luc Olivier L, DO [address] [place] [address] Phone: tel: fax: [place] [phone] Referral ID Status Reason Start Date Expiration Date V isits Requested Visits Authorized [id number] Closed Auto-Generate d Referral 06/01/2025 09/19/2025 1 1 [facility] for visit Narrative* Diagnostic Procedure Only (Routine) - Closed Specialty Diagnoses / Procedures Referred By Contac t Referred To Contact XR IMAGING Diagnoses Pain in both knees, unspecified chronicity Procedures XR KNEE GENERAL 4V AP BOTH/PA BOTH/LAT/MERC BILATERAL RADIOLOGIC EXAM KNEE COMPLETE 4/MORE VIEWS Javier Ahumada V DO [address] [facility] [place] [address] Phone: tel: fax: [place] [phone] Referral ID Status Reason Start Date Expiration Date V isits Requested Visits Authorized [id number] Closed Auto-Generate d Referral 06/01/2025 09/19/2025 1 1 [facility] Summary Purpose Family History No Family History Records FoundNo Family History Records Found Advance Directives No Advanced Directives Records FoundNo Advanced Directives Records Found Additional Source Comments Source Comments (unrecognize d section and content) In the event this informatio n is protected by the Federal Confidentiality of Alcohol and Drug Abuse Patient Records regulations: The Federal rules restrict any use of the information to criminally investigate or prosecute any alcohol or drug abuse patient.[facility] the event this information is protected by the Federal Confidentiality of Alcohol and Drug Abuse Patient Records regulations: The Federal rules restrict any use of the information to criminally investigate or prosecute any alcohol or drug abuse patient.[facility] the event this information is protected by the Federal Confidentiality of Alcohol and Drug Abuse Patient Records regulations: The Federal rules restrict any use of the information to criminally investigate or prosecute any alcohol or drug abuse patient.[facility] the event this information is protected by the Federal Confidentiality of Alcohol and Drug Abuse Patient Records regulations: The Federal rules restrict any use of the information to criminally investigate or prosecute any alcohol or drug abuse patient.[facility] the event this information is protected by the Federal Confidentiality of Alcohol and Drug Abuse Patient Records regulations: The Federal rules restrict any use of the information to criminally investigate or prosecute any alcohol or drug abuse patient.[facility] the event this information is protected by the Federal Confidentiality of Alcohol and Drug Abuse Patient Records regulations: The Federal rules restrict any use of the information to criminally investigate or prosecute any alcohol or drug abuse patient.[facility] the event this information is protected by the Federal Confidentiality of Alcohol and Drug Abuse Patient Records regulations: The Federal rules restrict any use of the information to criminally investigate or prosecute any alcohol or drug abuse patient.[facility] the event this information is protected by the Federal Confidentiality of Alcohol and Drug Abuse Patient Records regulations: The Federal rules restrict any use of the information to criminally investigate or prosecute any alcohol or drug abuse patient.[facility] the event this information is protected by the Federal Confidentiality of Alcohol and Drug Abuse Patient Records regulations: The Federal rules restrict any use of the information to criminally investigate or prosecute any alcohol or drug abuse patient.[facility] the event this information is protected by the Federal Confidentiality of Alcohol and Drug Abuse Patient Records regulations: The Federal rules restrict any use of the information to criminally investigate or prosecute any alcohol or drug abuse patient.[facility] the event this information is protected by the Federal Confidentiality of Alcohol and Drug Abuse Patient Records regulations: The Federal rules restrict any use of the information to criminally investigate or prosecute any alcohol or drug abuse patient.[facility] the event this information is protected by the Federal Confidentiality of Alcohol and Drug Abuse Patient Records regulations: The Federal rules restrict any use of the information to criminally investigate or prosecute any alcohol or drug abuse patient.[facility] the event this information is protected by the Federal Confidentiality of Alcohol and Drug Abuse Patient Records regulations: The Federal rules restrict any use of the information to criminally investigate or prosecute any alcohol or drug abuse patient.[facility] Reason for Visit (unrecogniz ed section and content) Reason Comments Appointment Reason Comments Yearly Exam Reason Comments Cough Specialty Diagnoses / Procedures Referred By Contac t Referred To Contact Internal Medicine / INTERNAL MEDICINE Diagnoses primary care sick visit cough and congestion Procedures primary care sick visit cough and chest pain Self [facility] [address] [place] [address] Referral ID Status Reason Start Date Expiration Date Visits Requested Visits Authorized [id number] Pending Review OON/Self Pay Override 10/18/2024 01/26/2026 1 1 Specialty Diagnoses / Procedures Referred By Contac t Referred To Contact [facility] Diagnoses Acute cough Procedures CHEST X-RAY 2 VIEW TC Darin Hogan MD [address] [place] [address] [facility] [address] [place] [address] Referral ID Status Reason Start Date Expiration Date Visits Requested Visits Authorized [id number] New Request OON/Self Pay Override 10/18/2024 01/26/2026 1 1 Reason Comments Results Positive influenza Reason Comments Testicular Pain Swelling in left gabbie ticle. Started late 11/11/24. Blood In Urine When sitting down to push with bowel movement Reason Onset Date Comments Results 11/16/2024 Reason Comments Yearly Exam Reason Comments Bilateral Knee Pain Care Teams (unrecognized sec tion and content) Floor Person Relationship Specialty Start Date End Date Luc Olivier DO [address] [place], [place] [id number] PCP - General Family Medicine 11/15/23 Nakia Alvarez, BUD [facility] [place] [address] Referring Internal Medicine 07/22/23 Floor Person Relationship Specialty Start Date End Date Lcu Olivier DO [address] [place], [place] [id number] PCP - General Family Medicine 11/15/23 Nakia Alvarez CNP [address] [place] [address] Referring Internal Medicine 07/22/23 Rowan Carter, CISCO.GALLERY MANAGER [address] [place], [place] [address] Pocket Grinder Operator Family Medicine 08/27/24 Beti Calvillo, CISCO.GALLERY MANAGER [address] [place], [place] [address] Pocket Grinder Operator Family Medicine 08/27/24 Floor Person Relationship Specialty Start Date End Date Luc Olivier DO [address] [place] [address] PCP - General Family Medicine 11/15/23 Nakia Alvarez, BUD [address] [place] [address] Referring Internal Medicine 07/22/23 Rowan Carter, RATE SETTER.GALLERY MANAGER [address] [place] [address] Pocket Grinder Operator Family Medicine 08/27/24 Beti Calvillo, RATE SETTER.GALLERY MANAGER [address] [place] [address] Pocket Grinder Operator Family Medicine 08/27/24 Floor Person Relationship Specialty Start Date End Date Luc Olivier DO [address] [place] [address] PCP - General Family Medicine 11/15/23 Nakia Alvarez, BUD [address] [place] [address] Referring Internal Medicine 07/22/23 Rowan Carter, RATE SETTER.GALLERY MANAGER [address] [place] [address] Pocket Grinder Operator Family Medicine 08/27/24 Beti Calvillo, RATE SETTER.GALLERY MANAGER [address] [place] [address] Pocket Grinder Operator Family Medicine 08/27/24 Floor Person Relationship Specialty Start Date End Date Luc Olivier DO [address] [place] [address] PCP - General Family Medicine 11/15/23 Nakia Alvarez CNP [address] [place] [address] Referring Internal Medicine 07/22/23 Rowan Carter, RATE SETTER.GALLERY MANAGER [address] [place] [address] Pocket Grinder Operator Family Medicine 08/27/24 Beti Calvillo, RATE SETTER.GALLERY MANAGER [address] [place] [address] Pocket Grinder Operator Family [facility] 08/27/24 Floor Person Relationship Specialty Start Date End Date Luc Olivier DO [address] [place] [address] PCP - General Family Medicine 11/15/23 Nakia Alvarez CNP [address] [place] [address] Referring Internal Medicine 07/22/23 Rowan Carter, RATE SETTER.GALLERY MANAGER [address] [place] [address] Pocket Grinder Operator Family [facility] 08/27/24 Beti Calvillo, RATE SETTER.GALLERY MANAGER [address] [place] [address] Pocket Grinder Operator Family [facility] 08/27/24 Floor Person Relationship Specialty Start Date End Date Luc Olivier DO [address] [place] [address] PCP - General Family Medicine 11/15/23 Nakia Alvarez, BUD [address] [place] [address] Referring Internal Medicine 07/22/23 [facility] RATE SETTER.GALLERY MANAGER [address] [place] [address] Pocket Grinder Operator Family [facility] 08/27/24 Anika Wong, RATE SETTER.GALLERY MANAGER [address] [place] [address] [facility] 03/05/25 Floor Person Relationship Specialty Start Date End Date Luc Olivier DO [address] [place] [address] PCP - General Family Medicine 11/15/23 Nakia Alvarez CNP [address] [place] [address] Referring Internal Medicine 07/22/23 [facility], RATE SETTER.GALLERY MANAGER [address] [place] [address] [facility] 08/27/24 Anika Wong, RATE SETTER.GALLERY MANAGER [address] [place] [address] [facility] 03/05/25 Floor Person Relationship Specialty Start Date End Date Luc Olivier DO [address] [place] [address] PCP - General Family Medicine 11/15/23 Nakia Alvarez, BUD [address] [place] [address] Referring Internal Medicine 07/22/23 Beti Calvillo, RATE SETTER.GALLERY MANAGER [address] [place] [address] Pocket Grinder Operator Family Medicine 08/27/24 Anika Wong, RATE SETTER.GALLERY MANAGER [address] [place] [address] Pocket Grinder Operator [facility] 03/05/25 Floor Person Relationship Specialty Start Date End Date Luc Olivier DO [address] [place] [address] PCP - General Family Medicine 11/15/23 Nakia Alvarez CNP [address] [place] [address] Referring Internal Medicine 07/22/23 Beti Calvillo, RATE SETTER.GALLERY MANAGER [facility] [place] [address] Pocket Grinder Operator Family Medicine 08/27/24 Anika Wong, RATE SETTER.GALLERY MANAGER [address] [place] [address] [facility] Floor Person Relationship Specialty Start Date End Date Luc Olivier DO [facility] [place] [address] PCP - General Family Medicine 11/15/23 Nkaia Alvarez CNP [address] [place] [address] Referring Internal Medicine 07/22/23 Beti Calvillo APRN.GALLERY MANAGER [address] [place], [place] [address] Pocket Grinder Operator [facility] 08/27/24 Anika Wong, RATE SETTER.GALLERY MANAGER [address] [place], [place] [address] Pocket Grinder Operator [facility] 03/05/25 (unrecognized sect ion and content) No Status Records FoundNo Status Records Found INFORMATION SOURCE (unrecogn ized section and content) DATE CREATED AUTHOR 12/26/2024 [facility] DATE CREATED AUTHOR AUTHOR'S YAZMINIZ ATION 07/02/2025 [facility] FOR RECORDS PERTAINING TO PATIENTS WHO ARE OR HAVE BEEN ENROLLED IN A CHEMICAL DEPENDENCY/SUBSTANCEABUSE PROGRAM, SOME INFORMATION MAY BE OMITTED. This clinical summary was aggregated from multiple sources. Caution should be exercised in using it in the provision of clinical care. This summary normalizes information from multiple sources, and as a consequence, information in this document may materially change the coding, format and clinical context of patient data. In addition, data may be omitted in some cases. CLINICAL DECISIONS SHOULD BE BASED ON THE PRIMARY CLINICAL RECORDS. [employer] [facility]. provides no warranty or guarantee of the accuracy or completeness of information in this document.
[2025-09-16 12:34] VITALS: BP 118/68; PULSE 60; RESP 16; O2SAT 95
[2025-09-16 14:04] VITALS: BP 112/88; PULSE 67; RESP 18; TEMP 36.8; O2SAT 100
== END 2025-09-16 14:09 | disposition home or self-care (01) ==
PROVIDERS: Emergency Provider Emergency Medicine; Visit Provider Emergency Medicine
DX: N20.0 Calculus of kidney (principal); E78.00 Pure hypercholesterolemia, unspecified; K21.9 Gastro-esophageal reflux disease without esophagitis; I10 Essential (primary) hypertension
CPT/HCPCS: 74176; 80048; 81001; 85025; 96374; 96375; 99283; A4216; J2405